=== PATIENT | male | born 1955 | race Caucasian/White ===

== ENCOUNTER 2021-06-16 07:29 | Day surgery (SDC) | payer MEDICARE, BC, SELFPAY ==
[2021-06-16] VITALS (7 sets, daily range): BP systolic 95–131; BP diastolic 63–81; PULSE 53–68; RESP 16; TEMP 36.4–36.6; O2SAT 96–98; BMI 21.8
[2021-06-16] MEDS: Lactated Ringers 1,000 ML 15 ML IV (07:55)
--- NOTE | 2021-06-16 08:45 | IMM_PTH ---
PATIENT: LASHAY WILLIAM LOC: EN U#:[id number] AGE/SX: 66/M ROOM: RE06/16/[address]: Dr. Anthony Villanueva MD : 1955 BED: DIS: 06/16/2021 SPEC #: [id number] RECD: 06/16/21 14:50 STATUS: PRESLEY REQ #: [id number] NATY: 06/16/21 08:[address]: Anthony Villanueva DEPT: IMMUNOHISTOCHEMISTRY RECD BY: Lilli Fontana ENTERED: 06/16/21 14:50 SP TYPE: IMMUNO OTHR DR: Dr. Zulma Dye MD Tissues: A - Stomach, NOS Procedures: H Pylori (initial) PHYSICIAN & INSTITUTION [address] [address] SPECIMEN INFORMATION: Tissue Source: A ? Antrum biopsy Clinical Info: Positive Cologuard test Specimen Number: [id number] CPT code: 18849 METHODOLOGY: Deparaffinized sections of prefer/formalin-fixed tissue or PAP/DQ stained slides are incubated with monoclonal/polyclonal antibodies/oligonucleotide probes. Localization is made via biotin free immunoperoxidase method. Appropriate controls are performed and reacted as expected. Results on target cell population are indicated in the following table: RESULTS: ANTIBODY / CLONE RESULT Block A H Pylori (polyclonal) negative These tests were developed and their performance characteristics determined by [facility]. They may not have been cleared or approved by the U.S. Food and Drug Administration. The FDA has determined that such clearance or approval is not necessary. INTERPRETATION: A. Antrum biopsy: Negative for Helicobacter pylori organisms. AM:huey 06/17/2021
--- NOTE | 2021-06-16 08:45 | EGD_PTH ---
PATIENT: LASHAY WILLIAM LOC: EN U#:[id number] AGE/SX: 66/M ROOM: RE06/16/[address]: Dr. Anthony Villanueva MD : 1955 BED: DIS: 06/16/2021 SPEC #: [id number] RECD: 06/16/21 11:33 STATUS: PRESLEY RERobbie #: [id number] NATY: 06/16/21 08:[address]: Anthony Villanueva DEPT: SURGICAL PATHOLOGY RECD BY: Naomi Yusuf ENTERED: 06/16/21 12:58 SP TYPE: EGD BIOPSY OT DR: Dr. Zulma Dye MD Tissues: A - Gastric mucous membrane B - Stomach, NOS C - Esophagus, NOS D - Ascending colon Procedures: Special Stain Group II Surgery Specimen Level IV Alcian Blue/PAS (control) HEADER OPERATION: Colonoscopy, EGD ([facility] [place] PRE-OP DIAGNOSIS: Positive Cologuard test TISSUE SUBMITTED: A ? Antrum biopsy for H. pylori and path, B ? EG junction biopsy, C ? Mid esophagus biopsy, D ? Proximal ascending colon ulceration biopsy MICROSCOPIC DIAGNOSIS A. Gastric antrum, biopsy: Chronic gastritis. See comment. B. Gastroesophageal junction, biopsy: Chronic inflammation. No evidence of goblet cell metaplasia. See comment. C. Mid esophagus, biopsy: No pathologic change. D. Proximal ascending colon ulceration, biopsy: Recent mucosal hemorrhage and mild glandular distortion. See comment. AM:huey 06/17/2021 COMMENT A. The results of immunohistochemistry for Helicobacter pylori will be reported separately ([id number]). B. Alcian blue/PAS stain with matched control supports the above diagnosis. D. Sections show mild glandular distortion, mild increase in inflammatory cells and lamina propria and recent mucosal hemorrhage. Cryptitis, crypt abscesses and fissuring ulcers are not identified. Clinical correlation is suggested. MICROSCOPIC DESCRIPTION Slides are reviewed. GROSS DESCRIPTION A - Received in fixative is one container labeled with the patient's name and designated antrum biopsy. The specimen consists of one irregular fragment of light sahu soft tissue that measures 0.5 x 0.5 x 0.1 cm. The specimen is totally submitted in one cassette. B - Received in fixative is one container labeled with the patient's name and designated GE junction. The specimen consists of multiple irregular fragments of light sahu soft tissue that in aggregate measure 1.5 x 0.5 x 0.1 cm. The specimen is totally submitted in one cassette. C - Received in fixative is one container labeled with the patient's name and designated mid esophagus biopsy. The specimen consists of one irregular fragment of light sahu soft tissue that measures 0.6 x 0.5 x <0.1 cm. The specimen is totally submitted in one cassette. D - Received in fixative is one container labeled with the patient's name and designated proximal ascending colon. The specimen consists of two irregular fragments of light sahu soft tissue that in aggregate measure 1 x 0.2 x 0.1 cm. The specimen is totally submitted in one cassette. / AM:huey 06/16/21 TC:3 CPT: 47806 x4, 73134
--- NOTE | 2021-06-16 08:45 | PCM.HP.BLA ---
History and Physical Date of Admission: 06/16/21 Intake Visit Reasons: positive cologaurd Chief Complaint: positive cologuard Wool Hanker Required: No Is patient in pain?: No Allergies amoxicillin Allergy (Mild, Verified 06/01/21 07:31) Rash Medications antiarthritic combination no.2 900 mg tablet mg PO 06/01/21 [History Confirmed 06/01/21] aspirin 81 mg tablet,delayed release 81 mg PO DAILY 06/01/21 [History Confirmed 06/01/21] atorvastatin 10 mg tablet tablet PO 06/01/21 [History Confirmed 06/01/21] cholecalciferol (vitamin D3) 25 mcg (1,000 unit) capsule 25 mcg PO DAILY 06/01/21 [History Confirmed 06/01/21] multivitamin 1 tab PO DAILY 06/01/21 [History Confirmed 06/01/21] niacin 500 mg tablet 500 mg PO BID 06/01/21 [History Confirmed 06/01/21] tamsulosin 0.4 mg capsule cap PO 06/01/21 [History Confirmed 06/01/21] PFSH Medical History BPH (benign prostatic hyperplasia) High cholesterol S/p nephrectomy Surgical History S/P hemorrhoidectomy Family History Father Hypertension Mother Cancer uterine cancer Social History Smoking Status: Never smoker alcohol intake: never HPI HPI HPI: LASHAY WILLIAM, is a 66 M who presents to the office today for surgical consultation regarding a positive Cologuard test. The patient is referred by Dr. Zulma Dye and a written copy of my surgical consult and recommendations will return to her. 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 He has had 2 previous hemorrhoidectomies both in 1959 and in 1972. His mother had uterine cancer but there is no documented family history of colon cancer. The patient has not been a tobacco user and years remains physically very active as of May 26, 2021 his hemoglobin was 13.7 and hematocrit 41.2 with a platelet count of 186,000. He had a Cologuard test and a means of screening for colon cancer and the result of this was positive. He has never had an upper endoscopy. He has never had a colonoscopy. He is a retired [employer]. He has not noticed any bright red blood per rectum or melena. No abdominal pain. No unexpected weight loss. As noted he remains physically very active. He plays pickle ball and rides bike. ROS General General: No weight change, appetite, fatigue, colon cancer, breast cancer or weakness HEENT HEENT: No difficulty swallowing, eye injury, eye surgery, swollen glands or hoarseness Endo Endocrine: No thyroid disease, diabetes mellitus, thyroid cancer, Hair loss, heat intolerance or cold intolerance Skin Skin: Yes changing moles; No rash Breast Breast: No left breast lump, right breast lump, nipple discharge, breast pain, abnormal mammogram, abnormal US or breast enlargement Musc Musculoskeletal: Yes back problems; No arthritis, rheumatoid arthritis, gout or joint pain Cardio Cardiovascular: No murmur, pacemaker, heart disease, atrial fibrillation, high blood pressure, heart attack, heart stent, palpitations, shortness of breat with exertion or chest pain Psych Psychiatric: No depression, anxiety or hearing voices Resp Respiratory: No shortness of breath, No sleep apnea, No cough, No COPD, No asthma, No emphysema and No wheezing Gastro Gastrointestinal: No abdominal pain, No nausea or vomiting, No diarrhea, No constipation, No blood in stool, No acid reflux, No hemorrhoids, No ulcers, No gallbladder problem and No black,tarry stools Christiano Hematologic: No blood thinners, No blood disorders, No bleeding, No anemia and No blood clots Neuro Neurologic: No system reviewed and no additional complaints, except as documented, No as per HPI, No abnormal gait, No abnormal hearing, No abnormal movements, No abnormal speech, No behavioral changes, No burning sensations, No confusion, No convulsions, No disequilibrium, No dizziness, No localized weakness, No frequent falls, No headache(s), No lack of coordination, No loss of vision, No memory loss, No numbness, No other visual disturbances, No radicular pain, No restless legs, No sensory deficit, No syncope, No tingling, No tremor(s), No weakness and No other Exam Const General: cooperative, healthy appearing, comfortable and no acute distress Nutritional Appearance: average body habitus Orientation: awake [facility] Head: normal to inspection Eyes General: appearance normal, both eyes and all related structures Chest Chest palpation & inspection: normal inspection of the chest Other: Right chest deformity secondary to remote right nephrectomy Resp Effort & Inspection: normal respiratory effort Auscultation: clear to auscultation bilaterally Cardio Rate: regular rate GI Palpation: soft and no hepatosplenomegaly Auscultation: normal bowel sounds Other: Nontender, normal bowel sounds Musc Cervical Spine: normal cervical lordosis Skin General: no rashes or lesions noted Neuro General: patient alert and patient awake Extrem General: no calf tenderness Psych Appearance: grossly normal Assessment and Plan Assessment and Plan (1) Positive colorectal cancer screening using Cologuard test: Status: Acute Plan - Dr. Anthony Villanueva MD: Patient with positive Cologuard. He has no upper or lower GI symptoms. He has never had an upper or lower scope. He is on aspirin therapy because of lower extremity superficial varicosities with previous history of superficial thrombophlebitis. He has never had deep venous thrombosis. I recommend to him a esophagogastroduodenoscopy with possible biopsy and colonoscopy with possible biopsy or polypectomy as indicated. He is aware of the technique, benefit, risk, alternatives. He has had an opportunity to ask and have questions answered. I anticipate performing this under monitored anesthesia care as noted the patient is retired [employer]. We will schedule procedure at his discretion. I very much appreciate the kind opportunity of assisting with the surgical care. He has not experience COVID-19. He has been fully vaccinated. Copy: Dr. Zulma Villanueva M.D., F.A.C.S. I have re-examined the patient. There are no clinical changes since date of exam.
--- NOTE | 2021-06-16 10:07 | OP.EGD_ITS ---
Patient Name: Siddharth Bennett Procedure Date: 06/16/2021 9:26 AM Date of : 1955 Age: 66 Procedure: Upper GI endoscopy Indications: Cologuard positive Providers: Anthony Villanueva MD Medicines: See the Anesthesia note for documentation of the administered medications Complications: No immediate complications. Procedure: Pre-Anesthesia Assessment: - Prior to the procedure, a History and Physical was performed, and patient medications and allergies were reviewed. The patient's tolerance of previous anesthesia was also reviewed. The risks and benefits of the procedure and the sedation options and risks were discussed with the patient. All questions were answered, and informed consent was obtained. Prior Anticoagulants: The patient has taken no previous anticoagulant or antiplatelet agents. ASA Grade Assessment: II - A patient with mild systemic disease. After reviewing the risks and benefits, the patient was deemed in satisfactory condition to undergo the procedure. After obtaining informed consent, the endoscope was passed under direct vision. Throughout the procedure, the patient's blood pressure, pulse, and oxygen saturations were monitored continuously. The gastroscope was introduced through the mouth, and advanced to the second part of duodenum. The upper GI endoscopy was accomplished without difficulty. The patient tolerated the procedure well. Scope In: 9:32:03 AM Scope Out: 9:38:14 AM Total Procedure Duration Time 0 hours 6 minutes 11 seconds Findings: LA Grade A (one or more mucosal breaks less than 5 mm, not extending between tops of 2 mucosal folds) esophagitis with no bleeding was found 44 cm from the incisors. Biopsies were taken with a cold forceps for histology. The middle third of the esophagus was normal. Biopsies were taken with a cold forceps for histology. A small hiatal hernia was present. Diffuse mildly erythematous mucosa without bleeding was found in the gastric antrum. Biopsies were taken with a cold forceps for histology. The examined duodenum was normal. Impression: - LA Grade A reflux esophagitis. Biopsied. - Normal middle third of esophagus. Biopsied. - Small hiatal hernia. - Erythematous mucosa in the antrum. Biopsied. - Normal examined duodenum. Recommendation: - Discharge patient to home. - Resume previous diet. - Continue present medications. - Use Prilosec (omeprazole) 40 mg PO daily. Esophagitis might have been enough to activate Cologuard Procedure Code(s): --- Professional --- 74298, Esophagogastroduodenoscopy, flexible, transoral; with biopsy, single or multiple Diagnosis Code(s): --- Professional --- K21.0, Gastro-esophageal reflux disease with esophagitis K44.9, Diaphragmatic hernia without obstruction or gangrene K31.89, Other diseases of stomach and duodenum CPT copyright 2017 [employer]. All rights reserved. The codes documented in this report are preliminary and upon sr. payroll processor review may be revised to meet current compliance requirements. Anthony Villanueva MD 06/16/2021 10:07:07 AM This report has been signed electronically. Number of Addenda: 0 Note Initiated On: 06/16/2021 9:26 AM
--- NOTE | 2021-06-16 10:08 | OP.CCLET_ITS ---
06/16/2021 Zulma Dye [place] [id number] [address] Re : Upper GI endoscopy procedure for Siddharth Bennett Dear Dr. Dye This procedure was performed on Wednesday, June 16, 2021. My impressions and recommendations are as follows: Impressions : - LA Grade A reflux esophagitis. Biopsied. - Normal middle third of esophagus. Biopsied. - Small hiatal hernia. - Erythematous mucosa in the antrum. Biopsied. - Normal examined duodenum. Recommendations : - Discharge patient to home. - Resume previous diet. - Continue present medications. - Use Prilosec (omeprazole) 40 mg PO daily. Esophagitis might have been enough to activate Cologuard My findings are described in the full procedure note, which is enclosed. If I can be of further assistance, please feel free to contact me at Doctor phone number(s): Work: . Sincerely, Anthony Villanueva MD 06/16/2021 10:07:07 AM This report has been signed electronically.
--- NOTE | 2021-06-16 10:16 | OP.COLON_ITS ---
Patient Name: Siddharth Bennett Procedure Date: 06/16/2021 9:38 AM Date of : 1955 Age: 66 Procedure: Colonoscopy Indications: Cologuard positive Providers: Anthony Villanueva MD Medicines: See the Anesthesia note for documentation of the administered medications Patient Profile: Last Colonoscopy: none. The patient's first colonoscopy is today. Complications: No immediate complications. Procedure: Pre-Anesthesia Assessment: - Prior to the procedure, a History and Physical was performed, and patient medications and allergies were reviewed. The patient's tolerance of previous anesthesia was also reviewed. The risks and benefits of the procedure and the sedation options and risks were discussed with the patient. All questions were answered, and informed consent was obtained. Prior Anticoagulants: The patient has taken no previous anticoagulant or antiplatelet agents. ASA Grade Assessment: II - A patient with mild systemic disease. After reviewing the risks and benefits, the patient was deemed in satisfactory condition to undergo the procedure. After I obtained informed consent, the scope was passed under direct vision. Throughout the procedure, the patient's blood pressure, pulse, and oxygen saturations were monitored continuously. The colonoscope was introduced through the anus and advanced to the cecum, identified by appendiceal orifice and ileocecal valve. The colonoscopy was performed without difficulty. The patient tolerated the procedure well. The quality of the bowel preparation was adequate to identify polyps. The ileocecal valve and the appendiceal orifice were photographed. Scope In: 9:41:58 AM Scope Withdrawal Time 0 hours 10 minutes 50 seconds Scope Out: 10:00:47 AM Total Procedure Duration Time 0 hours 18 minutes 49 seconds Findings: The digital rectal exam findings include non-thrombosed internal hemorrhoids and internal hemorrhoids that prolapse with straining, but require manual replacement into the anal canal (Grade III). Pertinent negatives include normal prostate (size, shape, and consistency). Focal area of nonbleeding ulcerated mucosa was present in the proximal ascending colon. Biopsies were taken with a cold forceps of this area. Multiple diverticula were found in the sigmoid colon and descending colon. The colon (entire examined portion) was moderately tortuous. There was a small lipoma, in the mid transverse colon. Impression: - Non-thrombosed internal hemorrhoids and internal hemorrhoids that prolapse with straining, but require manual replacement into the anal canal (Grade III) found on digital rectal exam. - Mucosal ulceration. - Diverticulosis in the sigmoid colon and in the descending colon. - Tortuous colon. - Small lipoma in the mid transverse colon. - Biopsies were taken with a cold forceps for histology [Site]. Recommendation: - Discharge patient to home. - Resume previous diet. - Continue present medications. - Telephone my office for pathology results in 1 week. - Repeat colonoscopy is recommended for surveillance. The colonoscopy date will be determined after pathology results from today's exam become available for review. Procedure Code(s): --- Professional --- 16858, Colonoscopy, flexible; with biopsy, single or multiple Diagnosis Code(s): --- Professional --- K64.2, Third degree hemorrhoids K63.3, Ulcer of intestine D17.5, Benign lipomatous neoplasm of intra-abdominal organs K57.30, Diverticulosis of large intestine without perforation or abscess without bleeding Q43.8, Other specified congenital malformations of intestine CPT copyright 2017 [employer]. All rights reserved. The codes documented in this report are preliminary and upon clay stain mixer review may be revised to meet current compliance requirements. Anthony Villanueva MD 06/16/2021 10:15:42 AM This report has been signed electronically. Number of Addenda: 0 Note Initiated On: 06/16/2021 9:38 AM
--- NOTE | 2021-06-16 10:17 | OP.CCLET_ITS ---
06/16/2021 Zulma Dye [place] [id number] [address] Re : Colonoscopy procedure for Siddharth Bennett Dear Dr. Dye This procedure was performed on Wednesday, June 16, 2021. My impressions and recommendations are as follows: Impressions : - Non-thrombosed internal hemorrhoids and internal hemorrhoids that prolapse with straining, but require manual replacement into the anal canal (Grade III) found on digital rectal exam. - Mucosal ulceration. - Diverticulosis in the sigmoid colon and in the descending colon. - Tortuous colon. - Small lipoma in the mid transverse colon. - Biopsies were taken with a cold forceps for histology [Site]. Recommendations : - Discharge patient to home. - Resume previous diet. - Continue present medications. - Telephone my office for pathology results in 1 week. - Repeat colonoscopy is recommended for surveillance. The colonoscopy date will be determined after pathology results from today's exam become available for review. My findings are described in the full procedure note, which is enclosed. If I can be of further assistance, please feel free to contact me at Doctor phone number(s): Work: . Sincerely, Anthony Villanueva MD 06/16/2021 10:15:42 AM This report has been signed electronically.
== END 2021-06-16 11:28 | disposition home or self-care (01) ==
LOC: EN 07:34 → AC 07:35
PROVIDERS: PCP Family Medicine; Referring Provider Family Medicine; Visit Provider Surgery
PROC: 0DJD8ZZ Inspection of Lower Intestinal Tract, Via Natural or Artificial Opening Endoscopic (ICD-10-PCS; CPT 45378; principal; 2021-06-16 08:40)
DX: K29.50 Unspecified chronic gastritis without bleeding (principal); K64.2 Third degree hemorrhoids; K63.3 Ulcer of intestine; K57.30 Diverticulosis of large intestine without perforation or abscess without bleeding; K21.00 Gastro-esophageal reflux disease with esophagitis, without bleeding; K31.89 Other diseases of stomach and duodenum; K44.9 Diaphragmatic hernia without obstruction or gangrene; N40.0 Benign prostatic hyperplasia without lower urinary tract symptoms; E78.00 Pure hypercholesterolemia, unspecified; Z79.82 Long term (current) use of aspirin; Z90.5 Acquired absence of kidney; Z85.528 Personal history of other malignant neoplasm of kidney
CPT/HCPCS: 43239; 45380; 88305; 88313; 88342; J7120; J2405

== ENCOUNTER → 2021-11-03 | Outpatient (CLI) | payer MEDICARE, BC, SELFPAY ==
--- NOTE | 2021-11-03 08:57 | US_ITS ---
STUDY: ULTRASOUND BREAST - LEFT REASON FOR EXAM: Male, 66 years old. Bilateral retroareolar tenderness. TECHNIQUE: Axial and longitudinal images of the LEFT breast were performed with a high resolution ultrasound transducer. # OF IMAGES: 50 COMPARISON: Comparison is made with prior mammogram done earlier in the day. FINDINGS: LEFT Breast: Retroareolar glandular tissue is seen. No mass lesions present. IMPRESSION: No soft tissue mass is seen. ASSESSMENT CATEGORY: No soft tissue masses seen Electronically Signed: Richard Archuleta MD at 11:04 EDT , STUDY: ULTRASOUND BREAST - RIGHT REASON FOR EXAM: Male, 66 years old. Palpable lump in the right breast. TECHNIQUE: Axial and longitudinal images of the RIGHT breast were performed with a high resolution ultrasound transducer. # OF IMAGES: 50 COMPARISON: Comparison is made with prior mammogram done earlier today. FINDINGS: RIGHT Breast: The retroareolar region of the breast was examined with ultrasound. No sonographic abnormality is seen. US/Breast Limited Unilateral IMPRESSION: No sonographic abnormality is seen. ASSESSMENT CATEGORY: BIRADS Category 1: Negative. A letter regarding these results will be sent to the patient by the facility within 30 days. Electronically Signed: Richard Archuleta MD at 11:05 EDT ,
--- NOTE | 2021-11-03 08:57 | BI_ITS ---
MAMMOGRAPHY - BILATERAL DIAGNOSTIC REASON FOR EXAM: Male, 66 years old. Bilateral breast tenderness worse on the left side. PERTINENT HISTORY: Non-contributory. TECHNIQUE: Digital bilateral breast dodie (3D mammographic acquisition) in the CC and MLO projections. 2-D mediolateral oblique (MLO) and craniocaudad (CC) views of both breasts were obtained. CAD: Full Field Digital Mammography with Computer Added Detection was performed. COMPARISON: None. Baseline examination. FINDINGS: Breast Composition: The breasts are almost entirely fatty. There are no dominant masses or suspicious calcifications. Bilateral axillary lymph nodes. No other significant abnormalities are identified. BI/DIAG MAMM W/CAD, BILAT IMPRESSION: Negative diagnostic mammogram. With the patient''s history of bilateral wrist tenderness, targeted ultrasound is recommended. ASSESSMENT CATEGORY: BIRADS Category 0: Incomplete. Need additional imaging evaluation. A letter regarding these results will be sent to the patient by the facility within 30 days. Approximately 10% of breast cancers are not detected by mammography. A normal mammogram should not delay biopsy of a clinically suspicious abnormality. Electronically Signed: Richard Archuleta MD at 10:02 EDT ,
== END | disposition home or self-care (01) ==
LOC: OPBI 08:54
PROVIDERS: PCP Family Medicine; Visit Provider Family Medicine
DX: N64.4 Mastodynia (principal)
CPT/HCPCS: 76642; 77062; 77066; G0279

== ENCOUNTER → 2022-05-04 | Outpatient (CLI) | payer MEDICARE, BC, SELFPAY ==
[2022-05-04 08:59] LABS: Absolute Lymphocyte Count 1.19 X10^3/uL (0.83-4.51); Absolute Neutrophil Count 2.8 X10^3/uL (2.0-7.7); Basophil# 0.03 X10^3/uL; Basophil% 0.7 % (0-1); Eosinophil# 0.09 X10^3/uL; Hematocrit 41.8 % (40-54); Hemoglobin 13.6 g/dL (13.0-16.5); Lymphocyte # 1.19 X10^3/ul (0.83-4.51); Lymphocyte % 26.6 % (19-41); Mean Corp Hgb Conc 32.5 g/dL (32-36); Mean Corpuscular Hgb 30.8 pg (27.0-32.0); Mean Corpuscular Volume 94.6 fL (80-94); Monocyte# 0.39 X10^3/uL; Monocyte% 8.7 % (0-10); NRBC Flagged by Analyzer 0 % (0-5); Neutrophil # 2.77 X10^3/uL (2.7-7.7); Neutrophil % 61.8 % (47-70); Platelet Count 182 K/mm3 (150-450); RBC Distribution Width CV 13.1 % (11.6-14.6); RBC Distribution Width SD 45.2 fl (35.1-43.9); Red Blood Count 4.42 M/mm3 (4.6-6.2); White Blood Count 4.5 K/mm3 (4.4-11.0)
[2022-05-04 09:39] LABS: ALB/GLOB Ratio 1.1 RATIO (0.9-2.4); AST(SGOT) 17 U/L (15-37); Alanine Aminotransfer ALT/SGPT 19 U/L (16-61); Albumin, Serum 3.6 g/dL (3.2-5.0); Alkaline Phosphatase 64 U/L (45-117); Anion Gap 4 (5-15); BUN 22 mg/dL (7-18); BUN/Creat Ratio 23.9 RATIO (10-20); Calcium,Total 8.9 mg/dL (8.5-10.1); Chloride 106 mmol/L (98-107); Cholesterol 217 mg/dL (200); Creatinine, Serum 0.92 mg/dL (0.70-1.30); EST Glomerular Filtration Rate 87 mL/min (>60); Est Glom Filt Rate - Afr Amer 105 mL/min (>60); Globulin 3.3 g/dL (2.2-4.2); Glucose 86 mg/dL (74-106); High Density Lipoprotein 56 mg/dL; Potassium 4.2 mmol/L (3.5-5.1); Protein, Total 6.9 g/dL (6.4-8.2); Sodium Level 139 mmol/L (136-145); Triglycerides 110 mg/dL; Very Low Density Lipoprotein 22 mg/dL (5-40)
== END | disposition home or self-care (01) ==
LOC: LAB 08:22
PROVIDERS: PCP Family Medicine; Referring Provider Family Medicine; Visit Provider Family Medicine
DX: E78.5 Hyperlipidemia, unspecified (principal); K21.00 Gastro-esophageal reflux disease with esophagitis, without bleeding; Z90.5 Acquired absence of kidney
CPT/HCPCS: 36415; 80053; 80061; 85025

== ENCOUNTER → 2022-07-09 | Outpatient (CLI) | payer MEDICARE, BC, SELFPAY | END | disposition home or self-care (01) | LOC: LABSPEC 08:20 | PROVIDERS: PCP Family Medicine; Visit Provider Family Medicine | DX: R30.0 Dysuria (principal) | CPT/HCPCS: 87077; 87086; 87088; 87186 ==

== ENCOUNTER → 2022-07-22 | Outpatient (CLI) | payer MEDICARE, BC, SELFPAY ==
[2022-07-22 12:39] LABS: Color, Urine Yellow (Yellow); Urine Clarity Clear (Clear)
[2022-07-22 12:40] LABS: Glucose, Dipstick Normal (Normal); Ketone-Dipstick Negative (Negative); Leukocyte Esterase-Dipstick Negative /ul (Negative); Nitrite-Dipstick Negative (Negative); Occult Blood-Urine 50 /ul (Negative); Protein-Dipstick Negative (Negative); Urine Bilirubin Dipstick Negative (Negative); Urine Urobilinogen Normal (Normal)
== END | disposition home or self-care (01) ==
LOC: LABSPEC 09:32
PROVIDERS: PCP Family Medicine; Visit Provider Family Medicine
DX: N39.0 Urinary tract infection, site not specified (principal)
CPT/HCPCS: 81002; 87086

== ENCOUNTER → 2022-11-26 | Outpatient (CLI) | payer MEDICARE, BC, SELFPAY | END | disposition home or self-care (01) | LOC: BFHLAB 11:29 | PROVIDERS: PCP Family Medicine; Referring Provider Family Medicine; Visit Provider Family Medicine | DX: R30.0 Dysuria (principal) | CPT/HCPCS: 87086 ==

== ENCOUNTER → 2023-06-01 | Outpatient (CLI) | payer MEDICARE, BC, SELFPAY ==
[2023-06-01 09:47] LABS: Absolute Lymphocyte Count 1.14 X10^3/uL (0.83-4.51); Absolute Neutrophil Count 2.3 X10^3/uL (2.0-7.7); Basophil# 0.03 X10^3/uL; Basophil% 0.8 % (0-1); Eosinophil# 0.17 X10^3/uL; Eosinophils% 4.3 % (0-5); Hematocrit 41.7 % (40-54); Lymphocyte # 1.14 X10^3/ul (0.83-4.51); Lymphocyte % 28.5 % (19-41); Mean Corp Hgb Conc 31.2 g/dL (32-36); Mean Corpuscular Hgb 30.2 pg (27.0-32.0); Mean Platelet Vol. 9.1 fl (6.2-12.0); Monocyte# 0.39 X10^3/uL; Monocyte% 9.8 % (0-10); NRBC Flagged by Analyzer 0 % (0-5); Neutrophil # 2.26 X10^3/uL (2.7-7.7); Neutrophil % 56.3 % (47-70); Platelet Count 188 K/mm3 (150-450); RBC Distribution Width CV 13.4 % (11.6-14.6); RBC Distribution Width SD 47.9 fl (35.1-43.9)
[2023-06-01 10:14] LABS: ALB/GLOB Ratio 1.1 RATIO (0.9-2.4); AST(SGOT) 22 U/L (15-37); Alanine Aminotransfer ALT/SGPT 18 U/L (16-61); Albumin, Serum 3.6 g/dL (3.2-5.0); Alkaline Phosphatase 58 U/L (45-117); Anion Gap 6 (5-15); BUN 20 mg/dL (7-18); BUN/Creat Ratio 22.7 RATIO (10-20); Calcium,Total 8.7 mg/dL (8.5-10.1); Chloride 107 mmol/L (98-107); Cholesterol 193 mg/dL (200); Creatinine, Serum 0.88 mg/dL (0.70-1.30); EST Glomerular Filtration Rate 91 mL/min (>60); Est Glom Filt Rate - Afr Amer 110 mL/min (>60); Globulin 3.3 g/dL (2.2-4.2); Glucose 88 mg/dL (74-106); High Density Lipoprotein 62 mg/dL; PSA,Total - Annual Screen 1.46 ng/mL (0.00-4.00); Potassium 3.9 mmol/L (3.5-5.1); Protein, Total 6.9 g/dL (6.4-8.2); Sodium Level 143 mmol/L (136-145); Triglycerides 85 mg/dL; Very Low Density Lipoprotein 17 mg/dL (5-40)
== END | disposition home or self-care (01) ==
LOC: LAB 08:23
PROVIDERS: PCP Family Medicine; Referring Provider Family Medicine; Visit Provider Family Medicine
DX: Z00.00 Encounter for general adult medical examination without abnormal findings (principal); N40.0 Benign prostatic hyperplasia without lower urinary tract symptoms; E78.5 Hyperlipidemia, unspecified; Z12.5 Encounter for screening for malignant neoplasm of prostate
CPT/HCPCS: 36415; 80053; 80061; 84153; 85025; G0103

== ENCOUNTER → 2024-06-12 | Outpatient (CLI) | payer MEDICARE, BC, SELFPAY ==
[2024-06-12 10:30] LABS: Absolute Lymphocyte Count 1.08 X10^3/uL (0.83-4.51); Absolute Neutrophil Count 2.8 X10^3/uL (2.0-7.7); Basophil# 0.04 X10^3/uL; Basophil% 0.9 % (0-1); Eosinophil# 0.13 X10^3/uL; Eosinophils% 2.9 % (0-5); Hematocrit 41.9 % (40-54); Hemoglobin 13.3 g/dL (13.0-16.5); Lymphocyte # 1.08 X10^3/ul (0.83-4.51); Lymphocyte % 24.4 % (19-41); Mean Corp Hgb Conc 31.7 g/dL (32-36); Mean Corpuscular Hgb 30.4 pg (27.0-32.0); Mean Corpuscular Volume 95.9 fL (80-94); Mean Platelet Vol. 8.5 fl (6.2-12.0); Monocyte# 0.37 X10^3/uL; Monocyte% 8.4 % (0-10); NRBC Flagged by Analyzer 0 % (0-5); Neutrophil % 63.2 % (47-70); Platelet Count 197 K/mm3 (150-450); RBC Distribution Width CV 13.1 % (11.6-14.6); RBC Distribution Width SD 46.6 fl (35.1-43.9); Red Blood Count 4.37 M/mm3 (4.6-6.2); White Blood Count 4.4 K/mm3 (4.4-11.0)
[2024-06-12 10:59] LABS: AST(SGOT) 19 U/L (15-37); Alanine Aminotransfer ALT/SGPT 18 U/L (16-61); Albumin, Serum 3.4 g/dL (3.2-5.0); Alkaline Phosphatase 66 U/L (45-117); Anion Gap 3 (5-15); BUN 18 mg/dL (7-18); BUN/Creat Ratio 19.3 RATIO (10-20); Calcium,Total 8.9 mg/dL (8.5-10.1); Chloride 107 mmol/L (98-107); Cholesterol 208 mg/dL (200); Creatinine, Serum 0.94 mg/dL (0.70-1.30); EST Glomerular Filtration Rate 85 mL/min (>60); Est Glom Filt Rate - Afr Amer 103 mL/min (>60); Globulin 3.5 g/dL (2.2-4.2); Glucose 95 mg/dL (74-106); High Density Lipoprotein 56 mg/dL; Potassium 3.9 mmol/L (3.5-5.1); Protein, Total 6.9 g/dL (6.4-8.2); Sodium Level 140 mmol/L (136-145); Triglycerides 116 mg/dL; Very Low Density Lipoprotein 23 mg/dL (5-40)
== END | disposition home or self-care (01) ==
PROVIDERS: PCP Family Medicine; Referring Provider Family Medicine; Visit Provider Family Medicine
DX: Z00.00 Encounter for general adult medical examination without abnormal findings (principal); N40.0 Benign prostatic hyperplasia without lower urinary tract symptoms; E78.5 Hyperlipidemia, unspecified
CPT/HCPCS: 36415; 80053; 80061; 85025

== ENCOUNTER → 2024-08-17 | Outpatient (CLI) | payer MEDICARE, BC, SELFPAY ==
[2024-08-17 17:42] LABS: Absolute Lymphocyte Count 0.77 X10^3/uL (0.83-4.51); Absolute Neutrophil Count 4.2 X10^3/uL (2.0-7.7); Basophil# 0.03 X10^3/uL; Basophil% 0.5 % (0-1); Eosinophil# 0.07 X10^3/uL; Eosinophils% 1.3 % (0-5); Hematocrit 41.1 % (40-54); Hemoglobin 13.1 g/dL (13.0-16.5); Lymphocyte # 0.77 X10^3/ul (0.83-4.51); Lymphocyte % 13.9 % (19-41); Mean Corp Hgb Conc 31.9 g/dL (32-36); Mean Corpuscular Hgb 30.7 pg (27.0-32.0); Mean Corpuscular Volume 96.3 fL (80-94); Mean Platelet Vol. 9.1 fl (6.2-12.0); Monocyte# 0.49 X10^3/uL; Monocyte% 8.8 % (0-10); NRBC Flagged by Analyzer 0 % (0-5); Neutrophil # 4.17 X10^3/uL (2.7-7.7); Neutrophil % 75.3 % (47-70); Platelet Count 194 K/mm3 (150-450); RBC Distribution Width CV 13.3 % (11.6-14.6); RBC Distribution Width SD 47.8 fl (35.1-43.9); Red Blood Count 4.27 M/mm3 (4.6-6.2); White Blood Count 5.5 K/mm3 (4.4-11.0)
[2024-08-17 18:03] LABS: ALB/GLOB Ratio 1.1 RATIO (0.9-2.4); AST(SGOT) 18 U/L (15-37); Alanine Aminotransfer ALT/SGPT 19 U/L (16-61); Albumin, Serum 3.7 g/dL (3.2-5.0); Alkaline Phosphatase 65 U/L (45-117); Anion Gap 3 (5-15); BUN 17 mg/dL (7-18); BUN/Creat Ratio 19.5 RATIO (10-20); Calcium,Total 9.6 mg/dL (8.5-10.1); Chloride 108 mmol/L (98-107); Creatinine, Serum 0.87 mg/dL (0.70-1.30); EST Glomerular Filtration Rate 92 mL/min (>60); Est Glom Filt Rate - Afr Amer 111 mL/min (>60); Globulin 3.4 g/dL (2.2-4.2); Glucose 103 mg/dL (74-106); Potassium 4.6 mmol/L (3.5-5.1); Protein, Total 7.1 g/dL (6.4-8.2); Sodium Level 141 mmol/L (136-145)
== END | disposition home or self-care (01) ==
LOC: BFHLAB 15:11
PROVIDERS: PCP Family Medicine; Visit Provider Family Medicine
DX: I49.3 Ventricular premature depolarization (principal); Z13.5 Encounter for screening for eye and ear disorders; R94.6 Abnormal results of thyroid function studies
CPT/HCPCS: 36415; 80053; 84443; 85025

== ENCOUNTER → 2024-12-21 | Outpatient (CLI) | payer MEDICARE, BC, SELFPAY ==
--- NOTE | 2024-12-21 08:48 | ECHOD_ITS ---
Reason For Study Reason For Study: ARRYTHMIA Procedure This was a 2D Doppler, Color Flow transthoracic echocardiogram. Exam performed in department. Left Ventricle Normal LV size. The left ventricular ejection fraction is 55 %. Stage 1 diastolic dysfunction. No regional wall motion abnormalities noted. Right Ventricle Normal RV size. Normal systolic function. Atria Normal left atrium. Normal right atrium. Mitral Valve Normal mitral valve. Tricuspid Valve Normal tricuspid valve. Mild (1+) tricuspid valve insufficiency. Pulmonary artery systolic pressure is 30 mmHg. Aortic Valve Trisinus/trileaflet aortic valve. Pulmonic Valve Normal pulmonic valve. Great Vessels Normal aortic root. The pulmonary artery is normal size. Inferior vena cava collapse with sniff. Pericardium/Pleural No pericardial effusion. MMode/2D Measurements & Calculations LVIDd: 5.2 cm IVSd: 1.0 cm Ao root diam: 3.5 cm LVIDs: 3.8 cm LVPWd: 0.99 cm RVDd: 4.1 cm FS: 26.8 % LAV(MOD-bp): 34.0 ml LVAd ap4: 30.9 cm2 SV(MOD-sp4): 50.3 ml LAV(MOD-bp) Indexed: 17.7 ml/m2 LVLd ap4: 8.6 cm SI(MOD-sp4): 26.2 ml/m2 LAV(MOD-sp2): 31.9 ml EDV(MOD-sp4): 94.2 ml LAV(MOD-sp4): 35.9 ml EDV(sp4-el): 94.0 ml LVAs ap4: 19.3 cm2 LVLs ap4: 7.3 cm ESV(MOD-sp4): 43.9 ml ESV(sp4-el): 43.7 ml EF(MOD-sp4): 53.4 % EF(sp4-el): 53.6 % SV(sp4-el): 50.3 ml LA A4 area: 15.1 cm2 LA dimension(2D): 3.8 cm RA A4 area: 14.9 cm2 TAPSE: 2.5 cm Time Measurements MV dec time: 0.16 sec Doppler Measurements & Calculations MV E max brown: 46.8 cm/sec Lat Peak E' Brown: 6.1 cm/sec Med Peak E' Brown: 7.6 cm/sec MV A max brown: 58.4 cm/sec E/E' lat: 7.7 E/E' med: 6.2 MV E/A: 0.80 Ao V2 max: 91.6 cm/sec LV V1 max: 69.5 cm/sec PA V2 max: 83.7 cm/sec Ao max P.4 mmHg LV V1 max P.9 mmHg TR max brown: 251.8 cm/sec TR max P.4 mmHg ECHO/Echo Complete Interpretation Summary Normal LV size. The left ventricular ejection fraction is 55 %. No regional wall motion abnormalities noted. Stage 1 diastolic dysfunction. Pulmonary artery systolic pressure is 30 mmHg. Structurally normal valves. Ordering Physician: Joe Avila Referring Physician: STAR LI Performed By: Sejal Simpson RDCS
--- OUTSIDE RECORDS SUMMARY | 2024-12-21 12:39 | XMS RPT_ITS | CCD ---
Author Organization [facility] CliniSyms Care Team Providers Care Drum Handler Name Role Phone MAIRA NESLON Unavailable Unavailable FLORIDALMA INFANTE Unavailable Unavailable FLORIDALMA INFANTE Unavailable Unavailable MAIRA NELSON Unavailable Unavailable FLORIDALMA INFANTE Unavailable Unavailable MAIRA NELSON Unavailable Unavailable FLORIDALMA INFANTE Unavailable Unavailable ARELIS, MD FLORIDALMA ALANIS Attending Unavailab pa INFANTE, MD FLORIDALMA ALANIS Primary Care Unavailab MD FLORIDALMA Guerra Primary Care Unavailab MD NEISHA Merida Attending Unavailable ARELIS, MD FLORIDALMA ALANIS Consulting Unavailab Dr. Zulma Holder MD Primary Care Provider [phone] Dr. Zulma Dye MD Attending Provider Dr. Zulma Dye MD Referring Provider Dr. Zulma Dye MD Primary Care Provider Dr. Zulma Dye MD Attending Provider Dr. Zulma Dye MD Referring Provider Dr. Joe Avila MD Attending Provider [phone] Zulma Dye Referring Unavailable Zulma Dye Attending Unavailable Zulma Dye Primary Care Unavailable Zulma Dye Primary Care Unavailable [place], [place] Referring Unavailable [place], [place] Attending Unavailable Zulma Dye Primary Care Unavailable [place], [place] Referring Unavailable [place], Joe Attending Unavailable Zulma Dye Referring Unavailable Zulma Dye Primary Care Unavailable [place], Joe Attending Unavailable Zulma Dye Attending Unavailable Zulma Dye Primary Care Unavailable Allergies Allergy Classification Reported Allergen(s) Allergy Type Date of Onset Reaction(s) Facility Penicillins (antibiotic) (1 source) Amoxicillin; Translations: [amoxicillin] Drug Allergy [facility] Repository (7 sources) Amoxicillin Drug Allergy 06-16-2021 Rash [facility] (1 source) Amoxicillin Drug Allergy 11-09-2024 [facility] Repository Medications Current Medications Medication Drug Class(es) Dates Sig (Normalized) Sig (Original) Antiarthritic Combination No.2 (Glucosamine-Chondro itin) 900 mg tablet (7 sources) Start: 06-01-2021 take 1 tablet by mouth once daily Antiarthritic Combination No.2 (Glucosamine-Chondr oitin) 900 mg tablet Active 900 MG PO DAILY June 01, 2021 8:31am Start: 06-01-2021 End: 11-09-2024 take 1 tablet by mouth once daily Antiarthritic Combination No.2 (Glucosamine-Chondroitin) 900 mg tablet Discontinued 900 mg PO DAILY June 01, 2021 1:00am November 09, 2024 8:57am Start: 06-01-2021 take 1 tablet by anastasiya th once daily Antiarthritic Combination No.2 (Glucosamine-Chondroitin) 900 mg tablet Active 900 mg PO DAILY June 01, 2021 12:00am Start: 06-01-2021 take 1 tablet by anastasiya th once daily Antiarthritic Combination No.2 (Glucosamine-Chondroitin) 900 mg tablet Active 900 MG PO DAILY June 01, 2021 1:00am Start: 06-01-2021 take 1 tablet by anastasiya th once daily Antiarthritic Combination No.2 (Glucosamine-Chondroitin) 900 mg tablet Active 900 MG PO DAILY June 01, 2021 12:00am aspirin 81 mg delayed release oral tablet (7 sources) Platelet Aggregation Inhibitor, Nonsteroidal Anti-inflammatory Drug Start: 06-01-2021 take 1 tablet by mouth once daily Aspirin 81 mg tablet,delayed release (DR/EC) Active 81 mg PO DAILY June 01, 2021 1:00am atenolol 25 mg oral tablet (1 source) beta-Adrenergic Marine Start: 10-15-2024 take 1 tablet by mouth once daily Atenolol 25 mg tablet Active 25 mg PO daily October 15, 2024 12:00am atorvastatin 10 mg oral tablet (7 sources) HMG-CoA Reductase Inhibitor Start: 06-01-2021 take 1 tablet by mouth every other day Atorvastatin 10 mg tablet Active 10 mg PO EVERY OTHER DAY June 01, 2021 1:00am cholecalciferol 0.025 mg oral capsule (7 sources) Vitamin D Start: 06-01-2021 take 1 capsule by mouth once daily Cholecalciferol (Vitamin D3) 25 mcg (1,000 unit) capsule Active 25 ug PO DAILY June 01, 2021 1:00am Multivitamin preparation (5 sources) Start: 06-01-2021 take 1 tablet by mouth once daily Multivitamin Active 1 TABLET PO DAILY June 01, 2021 8:32am Start: 06-01-2021 take 1 tablet by anastasiya th once daily Multivitamin Active 1 TABLET PO DAILY June 01, 2021 1:00am Start: 06-01-2021 take 1 tablet by anastasiya th once daily Multivitamin Active 1 TABLET PO DAILY June 01, 2021 12:00am niacin 500 mg oral tablet (8 sources) Nicotinic Acid Start: 10-15-2024 take 1 tablet by mouth once daily Niacin 500 mg tablet Active 500 mg PO daily October 15, 2024 3:48pm Start: 06-01-2021 End: 10-15-2024 take 1 tablet by mouth twice daily Niacin 500 mg tablet Discontinued 500 mg PO TWICE A DAY June 01, 2021 1:00am October 15, 2024 3:49pm tamsulosin hydrochloride 0.4 mg oral capsule (7 sources) alpha-Adrenergic Marine Start: 06-01-2021 Tamsu losin 0.4 mg capsule Active 0.4 NMA PO AT BEDTIME June 01, 2021 1:00am Start: 06-01-2021 take 0.4 capsule by mouth at bedtime Tamsulosin Active 0.4 CAP PO AT BEDTIME June 01, 2021 12:00am Completed/Discontinued Medications Medication Drug Class(es) Dates Sig (Normalized) Sig (Original) Multivitamin tablet (2 sources) Start: 06-01-2021 End: 11-09-2024 Multivitamin tablet Discontinued 1 {tbl} PO DAILY June 01, 2021 1:00am November 09, 2024 8:57am Start: 06-01-2021 Multivitamin t ablet Active 1 {tbl} PO DAILY June 01, 2021 12:00am omeprazole 40 mg delayed release oral capsule (7 sources) Proton Pump Inhibitor Start: 06-16-2021 End: 11-09-2024 take 1 capsule by mouth once daily Omeprazole 40 mg capsule,delayed release(DR/EC) Discontinued 40 mg PO DAILY 90 June 16, 2021 1:00am November 09, 2024 8:58am Problems Problem Classification Problem Date Documented Da te Episodic/Chronic Cardiac dysrhythmias (2 sources) Ventricular premature depolarization; Translations: [Ventricular premature depolarization] Onset: 08-30-2024 Chronic Disorders of lipid metabolism (8 sources) Hypercholesterolem ia; Translations: [Pure hypercholesterolem ia, unspecified] Onset: 11-09-2024 06-01-2021 Chronic Hyperplasia of prostate (7 sources) Benign prostatic hyperplasia; Translations: [Benign prostatic hyperplasia without lower urinary tract symptoms] 06-01-2021 Chronic Malignant neoplasm without specification of site (1 source) Malignant neoplastic disease; Translations: [Malignant (primary) neoplasm, unspecified] 10-15-2024 Chronic Comment on above: SKIN AND KIDNEY Other circulatory disease (1 source) History of cardiac arrhythmia; Translations: [Personal history of other diseases of the circulatory system] 10-15-2024 Episodic Comment on above: PVC'S SINCE AGE 39 Other circulatory disease (1 source) Personal history of other diseases of the circulatory system; Translations: [Personal history of other diseases of the circulatory system] Onset: 11-09-2024 Episodic Other gastrointestinal disorders (7 sources) Stool DNA-based colorectal cancer screening positive; Translations: [Other fecal abnormalities] 06-01-2021 Episodic Other male genital disorders (1 source) Disorder of prostate; Translations: [Disorder of prostate, unspecified] 10-15-2024 Episodic Comment on above: MILD ENLARGED PROSTA TE/ON FLOMAX Residual codes; unclassified (1 source) History of nephrectomy; Translations: [Acquired absence of kidney] 10-15-2024 Episodic Comment on above: right/DUE TO WILL TU MOR CHILD /HAD RADIATION Residual codes; unclassified (1 source) History of clinical finding in subject; Translations: [Personal history of other specified conditions] 10-15-2024 Episodic Comment on above: OCC LOWER LEGS/COMPR ESSION SOCKS Unclassified (1 source) Frequency of micturition / R35.0(ICD-10) Onset: 09-05-2017 Unclassified (1 source) Urgency of urination / R39.15(ICD-10) Onset: 09-05-2017 Unclassified (1 source) Hematuria, unspecified / R31.9(ICD-10) Onset: 08-26-2017 Unclassified (1 source) Renal agenesis, unilateral / Q60.0(ICD-10) Onset: 08-26-2017 Urinary tract infections (1 source) Urinary tract infections Onset: 08-26-2017 Results Test Name Value Interpretation Reference Range Facility 12 Lead EKG performed by [facility] 11-09-2024 12 Lead EKG performed by [facility] [address] [place] [address] 12 Lead EKG performed by [facility] 11/09/24 0853 MR#: [id number] Acct: [id number] Name: LASHAY BENNETT Rep #: [id number] : 1955 69 From: Joe Avila MD Attending Dr: Dr. Joe Avila MD Status: DEP A MB Ordering Dr: Joe Avila MD Date: 11/09/24 [place] [facility] [place] Sex: M C Admitted: [facility]12 Lead EKG performed by [facility] ECG Report Interpretation -----Sinus Bradycardia -Poor R-wave progression -nonspecific -consider old anterior infarct. BORDERLINEElectronica lly signed on 11/14/2024 at 09:35 by Joe Avila [employer] Version [id number] 11/14/24 0937 Date Joe Avila MD CC: Dr. Zulma Dye MD Date Dictated: 11/09/2453 Date Transcribed: 11/09/24852 [employer] Plating Supervisor: [place] Signed Normal [facility] Cardiology Visit Reporton Cardiology Visit Report [facility] [address] [place] [address] OFFICE VISIT Date of Service: 11/09/24 MR#: [id number] Acct: [id number] Name: LASHAY BENNETT Rep #: [id number] : 1955 Provider: Dr. Joe Avila MD Age/Sex: 69/M Location: [facility] Status: Signed HPI HPI History of Present Illness Details: Pleasant 69-year-old man with no previous cardiac history who presents with palpitations. He says that he is not sure why they started caring but he did see you in the office and blood work was done which demonstrated normal potassium and TSH levels. He was put on atenolol with improvement in his symptomatology. He denies any dizziness or diaphoresis no near-syncope or syncope. He has been compliant with his atenolol but he says that it makes him significantly fatigued. His most recent lipid profile demonstrates a total cholesterol of 208 HDL of 56 LDL of 129. His physical exam is unremarkable his electrocardiogram demonstrates sinus bradycardia with a rate of 53 bpm. 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 Required: No Accompanied by: Significant Other Is patient in pain?: No Allergies amoxicillin Allergy (Mild, Verified 11/09/24 08:57) Rash Medications ???Medication ???Instructions ???Recorded ???Confirmed ???Type aspirin 81 mg tablet,delayed 81 mg PO DAILY 06/01/21 11/09/24 H istory release atorvastatin 10 mg tablet 10 mg PO QODAY 06/01/21 11/09/24 H istory cholecalciferol (vitamin D3) 25 25 mcg PO DAILY 06/01/21 11/09/24 History mcg (1,000 unit) capsule tamsulosin 0.4 mg capsule 0.4 cap PO QHS 06/01/21 11/09/24 H istory atenolol 25 mg tablet 25 mg PO QDAY 10/15/24 11/09/24 Hi story niacin 500 mg tablet 500 mg PO QDAY 10/15/24 11/09/24 H istory Have you fallen in the past year?: No [facility] Medical History Cancer Prostate disease History of edema History of irregular heartbeat BPH (benign prostatic hyperplasia) High cholesterol Surgical History S/p nephrectomy S/P hemorrhoidectomy Family History Father Hypertension Mother Cancer uterine cancer Social History Smoking Status: Never smoker alcohol intake: never ROS Const Const: Positive for fatigue; Negative for weakness, headache(s), daytime sleepiness or difficulty sleeping ENT ENT: Negative for headache(s), dizziness or Nosebleed/epistaxis Cardio Chest Pain: No Palpitations: Yes Edema: Bilateral (BLE -trace ; wears compression stockings) Resp Respiratory: Negative for SOB with activity, SOB at rest, SOB orthopnea SOB lying down or Cough GI GI: Negative nausea, vomiting or heartburn Neuro Neuro: Negative for dizziness, lightheadedness, near syncope, headache(s) or weakness Endo Endo: Positive for fatigue Cardiology Exam Const Appearance: cooperative, healthy appearing, no acute distress, well developed and well groomed Nutritional Appearance: average body habitus and well nourished Orientation: alert, awake and oriented x3 Head Head: normal to inspection, normocephalic and atraumatic Ears: hearing grossly normal bilaterally and external ears normal Nose: external nose normal, nares normal, nasal mucous membranes and turbinates normal, septum normal and no nasal discharge Face and Sinus: face symmetric Mouth: oral mucosae normal, tongue normal, oropharynx normal and moist mucous membranes Teeth and gingiva: dentition normal Throat: posterior oropharynx normal, tonsils normal and uvula midline Eyes General: appearance normal, both eyes and all related structures Eyelids: eyelids normal Conjunctivae: conjunctivae normal Pupils: PERRL, normal by confrontation and accommodation normal EOM: EOM intact bilaterally Neck Neck: normal visual inspection, trachea midline and no JVD JVD: +5 Carotids: normal carotid upstroke and bounding pulses Chest Chest inspection: normal inspection of the chest, symmetric chest movement and normal respiratory effort Auscultation: Bilateral: Clear to Auscultation Cardio Palpation: normal PMI Rate: regular rate Rhythm: regular rhythm Heart sounds: S1 normal, S2 normal and normal, physiologic split S2; Negative rub, gallop or murmur GI GI: normal to inspection, soft, no hepatosplenomegaly and bowel sounds present Neuro General: patient alert, patient awake, patient oriented x3, gait normal, m (more content not included)... Normal [facility] Absolute lymphocyte countOrd ered By: Zulma Dye on 08-17-2024 Lymphocytes Auto (Unsp spec) [#/Vol] 0.77 10*3/uL Low 0.83-4.51 [facility] Absolute neutrophil countOrd ered By: Zulma Dye on 08-17-2024 Neutrophils (Bld) [#/Vol] 4.2 10*3/uL 2.0-7.7 [facility] Albumin to globulin ratioOrd ered By: Zulma Dye on 08-17-2024 Albumin/Globulin [Mass ratio] 1.1 {ratio} 0.9-2.4 [facility] Automated lymphocyte count a s percentage of total leukocytesOrdered By: Zulma Dye on 08-17-2024 Lymphocytes/100 WBC Auto (Unsp spec) 13.9 % Low 19-41 [facility] Basophil percentageOrdered B y: Zulma Dye on 08-17-2024 Basophils/100 WBC (Bld) 0.5 % 0-1 [facility] Bilirubin, totalOrdered By: Zulma Dye on 08-17-2024 Bilirubin [Mass/Vol] 1.30 mg/dL High 0.20-1.00 [facility] Comment on above: For patients on eltr ombopag therapy, use of Dimension Trout TBIL is not recommended. Blood urea nitrogen (BUN)/cr eatinine ratioOrdered By: Zulma Dye on 08-17-2024 Urea nitrogen/Creatinine [Mass ratio] 19.5 mg/mg 10-20 [facility] CBC W/Diff, Automatedon 07-29 Absolute Lymph 0.77 X10 3/uL Low 0.83-4.51 [facility] Comment on above: Performed By: #### L 100.0100, L501.9520, L500.4050 #### [facility] [address] [place], [address] Absolute Neut 4.2 X10 3/uL Normal 2.0-7.7 [facility] Comment on above: Performed By: #### L 100.0100, L501.9520, [id number] #### [facility] [address] [place], [address] Basophils/100 WBC (Bld) 0.5 % Normal 0-1 [facility] Comment on above: Performed By: #### L 100.0100, L501.9520, [id number] #### [facility] [address] [place], [address] Eosinophils/100 WBC (Bld) 1.3 % Normal 0-5 [facility] Comment on above: Performed By: #### L 100.0100, L501.9520, [id number] #### [facility] [address] [place], [address] Erythrocyte distribution width (RBC) [Ratio] 13.3 % Normal 11.6-14.6 [facility] Comment on above: Performed By: #### L 100.0100, L501.9520, L500.4050 #### [facility] [address] [place], [address] Hematocrit (Bld) [Volume fraction] 41.1 % Normal 40-54 [facility] Comment on above: Performed By: #### L 100.0100, L501.9520, [id number] #### [facility] [address] [place], [address] Hemoglobin (Bld) [Mass/Vol] 13.1 g/dL Normal 13.0-16.5 [facility] Comment on above: Performed By: #### L 100.0100, L501.9520, L500.4050 #### [facility] [address] [place], [address] IG% 0.200 Normal 0.0-0.9 [facility] Comment on above: Result Comment: IG% - Immature Granulocytes (promyelocytes, myelocytes and metamyelocytes) > 1% indicates that a LEFT SHIFT is Present. Performed By: #### L 100.0100, L501.9520, L500.4050 #### [facility] [address] [place], [address] Lymphocytes/100 WBC (Bld) 13.9 % Low 19-41 [facility] Comment on above: Performed By: #### L 100.0100, L501.9520, [id number] #### [facility] [address] [place], [address] MCH (RBC) [Entitic mass] 30.7 pg Normal 27.0-32.0 [facility] Comment on above: Performed By: #### L 100.0100, L501.9520, L500.4050 #### [facility] [address] [place], [address] MCHC (RBC) [Mass/Vol] 31.9 g/dL Low 32-36 [facility] Comment on above: Performed By: #### L 100.0100, L501.9520, L500.4050 #### [facility] [address] [place], [address] MCV (RBC) [Entitic vol] 96.3 fL High 80-94 [facility] Comment on above: Performed By: #### L 100.0100, L501.9520, L500.4050 #### [facility] [address] [place], [address] Monocytes/100 WBC (Bld) 8.8 % Normal 0-10 [facility] Comment on above: Performed By: #### L 100.0100, L501.9520, L500.4050 #### [facility] [address] [place], [address] Neutrophils/100 WBC (Bld) 75.3 % High 47-70 [facility] Comment on above: Performed By: #### L 100.0100, L501.9520, L500.4050 #### [facility] [address] [place], [address] Nucleated RBC (Bld) [#/Vol] 0 10*3/uL Normal 0-5 [facility] Comment on above: Performed By: #### L 100.0100, L501.9520, L500.4050 #### [facility] [address] [place], [address] Platelet mean volume (Bld) [Entitic vol] 9.1 fL Normal 6.2-12.0 [facility] Comment on above: Performed By: #### L 100.0100, L501.9520, L500.4050 #### [facility] [address] [place], [address] Platelets (Bld) [#/Vol] 194 10*3/uL Normal 150-450 [facility] Comment on above: Performed By: #### L 100.0100, L501.9520, [id number] #### [facility] [address] [place], [address] RBC (Bld) [#/Vol] 4.27 10*6/uL Low 4.6-6.2 [facility] Comment on above: Performed By: #### L 100.0100, L501.9520, L500.4050 #### [facility] [address] [place], [address] RDW SD 47.8 fl High 35.1-43.9 [facility] Comment on above: Performed By: #### L 100.0100, L501.9520, L500.4050 #### [facility] [address] [place], [address] WBC (Bld) [#/Vol] 5.5 10*3/uL Normal 4.4-11.0 [facility] Comment on above: Performed By: #### L 100.0100, L501.9520, L500.4050 #### [facility] [address] [place], [address] Carbon dioxide measurementOr dered By: Zulma Dye on 08-17-2024 CO2 [Moles/Vol] 30.0 mmol/L 21.0-32.0 [facility] Chloride measurementOrdered By: Zulma Dye on 08-17-2024 Chloride [Moles/Vol] 108 mmol/L High 98-107 [facility] Comprehensive Metabolic Prof ilon 08-17-2024 Albumin [Mass/Vol] 3.7 g/dL Normal 3.2-5.0 [facility] Comment on above: Performed By: #### L 100.0100, L501.9520, L500.4050 #### [facility] [address] [place], [address] Albumin/Globulin [Mass ratio] 1.1 {ratio} Normal 0.9-2.4 [facility] Comment on above: Performed By: #### L 100.0100, L501.9520, L500.4050 #### [facility] [address] [place], [address] ALK P 65 U/L Normal 45-117 [facility] Comment on above: Performed By: #### L 100.0100, L501.9520, L500.4050 #### [facility] [address] [place], [address] ALT [Catalytic activity/Vol] 19 U/L Normal 16-61 [facility] Comment on above: Performed By: #### L 100.0100, L501.9520, [id number] #### [facility] [address] [place], [address] AST [Catalytic activity/Vol] 18 U/L Normal 15-37 [facility] Comment on above: Performed By: #### L 100.0100, L501.9520, L500.4050 #### [facility] [address] [place], [address] Bilirubin [Mass/Vol] 1.30 mg/dL High 0.20-1.00 [facility] Comment on above: Result Comment: For patients on eltrombopag therapy, use of Dimension Trout TBIL is not recommended. Performed By: #### L 100.0100, L501.9520, L500.4050 #### [facility] [address] [place], [address] BUN/CRE 19.5 RATIO Normal 10-20 [facility] Comment on above: Performed By: #### L 100.0100, L501.9520, L500.4050 #### [facility] [address] [place], [address] CA,Total 9.6 mg/dL Normal 8.5-10.1 [facility] Comment on above: Performed By: #### L 100.0100, L501.9520, L500.4050 #### [facility] [address] [place], [address] Chloride [Moles/Vol] 108 mmol/L High 98-107 [facility] Comment on above: Performed By: #### L 100.0100, L501.9520, L500.4050 #### [facility] [address] [place], [address] CO2 [Moles/Vol] 30.0 mmol/L Normal 21.0-32.0 [facility] Comment on above: Performed By: #### L 100.0100, L501.9520, L500.4050 #### [facility] [address] [place], [address] Creatinine [Mass/Vol] 0.87 mg/dL Normal 0.70-1.30 [facility] Comment on above: Result Comment: The validity of the calculated GFR GFRAA in patients over 70 years has not been determined. Clinical correlation is essential. Performed By: #### L 100.0100, L501.9520, L500.4050 #### [facility] [address] [place], [address] EST GFR - AA 111 mL/min Normal >60 [facility] Comment on above: Result Comment: Afri can Bulgarian GFR Calc Performed By: #### L 100.0100, L501.9520, L500.4050 #### [facility] [address] [place], [address] GAP 3 Low 5-15 [facility] Comment on above: Performed By: #### L 100.0100, L501.9520, L500.4050 #### [facility] [address] [place], [address] GFR/1.73 sq M.predicted among non-blacks MDRD (S/P/Bld) [Vol rate/Area] 92 mL/min/{1.73_m2} Normal >60 [facility] Comment on above: Result Comment: Non- GFR Calc Performed By: #### L 100.0100, L501.9520, L500.4050 #### [facility] [address] [place], [address] Globulin (S) [Mass/Vol] 3.4 g/dL Normal 2.2-4.2 [facility] Comment on above: Performed By: #### L 100.0100, L501.9520, L500.4050 #### [facility] [address] [place], [address] Glucose [Mass/Vol] 103 mg/dL Normal 74-106 [facility] Comment on above: Result Comment: Fast ing Glucose result from 100 to 125 mg/dL suggests IMPAIRED HOMEOSTASIS per A.D.A. criteria. Performed By: #### L 100.0100, L501.9520, L500.4050 #### [facility] [address] [place], [address] Potassium [Moles/Vol] 4.6 mmol/L Normal 3.5-5.1 [facility] Comment on above: Performed By: #### L 100.0100, L501.9520, L500.4050 #### [facility] [address] [place] [place], [address] Sodium [Moles/Vol] 141 mmol/L Normal 136-145 [facility] Comment on above: Performed By: #### L 100.0100, L501.9520, L500.4050 #### [facility] [address] [place], [address] T PROT 7.1 g/dL Normal 6.4-8.2 [facility] Comment on above: Performed By: #### L 100.0100, L501.9520, [id number] #### [facility] [address] [place], [address] Urea nitrogen [Mass/Vol] 17 mg/dL Normal 7-18 [facility] Comment on above: Performed By: #### L 100.0100, L501.9520, [id number] #### [facility] [address] [place], [address] Eosinophil percentageOrdered By: Zulma Dye on 08-17-2024 Eosinophils/100 WBC (Bld) 1.3 % 0-5 [facility] Erythrocyte distribution wid th ratioOrdered By: Zulma Dye on 08-17-2024 Erythrocyte distribution width (RBC) [Ratio] 13.3 % 11.6-14.6 [facility] Erythrocyte distribution wid th standard deviationOrdered By: Zulma Dye on 08-17-2024 Erythrocyte distribution width (RBC) [Entitic vol] 47.8 fL High 35.1-43.9 [facility] Erythrocyte distribution width (RBC) [Ratio] 47.8 fl High 35.1-43.9 [facility] Estimated glomerular filtrat ion rate (GFR) AmericanOrdered By: Zulma Dye on 08-17-2024 Estimated GFR (MDRD) Amer 111 mL/min >60 [facility] Comment on above: GFR Calc Glomerular filtration rate ( GFR) estimationOrdered By: Zulma Dye on 08-17-2024 Estimated GFR (MDRD) Non-Af Amer 92 mL/min >60 [facility] Comment on above: Non- GFR Calc GFR/1.73 sq M.predicted among non-blacks MDRD (S/P/Bld) [Vol rate/Area] 92 mL/min/{1.73_m2} >60 [facility] Comment on above: Non- GFR Calc Glucose measurementOrdered B y: Zulma Dye on 08-17-2024 Glucose [Mass/Vol] 103 mg/dL 74-106 [facility] Comment on above: Fasting Glucose resu lt from 100 to 125 mg/dL suggests IMPAIRED HOMEOSTASIS per A.D.A. criteria. Hematocrit Auto (Bld) [Volum e fraction]Ordered By: Zulma Dye on 08-17-2024 Hematocrit (Bld) [Volume fraction] 41.1 % 40-54 [facility] Hemoglobin measurementOrdere d By: Zulma Dye on 08-17-2024 Hemoglobin (Bld) [Mass/Vol] 13.1 g/dL 13.0-16.5 [facility] Immature granulocytes/100 WB C Auto (Bld)Ordered By: Zulma Dye on 08-17-2024 Immature granulocytes/100 WBC (Bld) 0.200 % 0.0-0.9 [facility] Comment on above: IG% - Immature Granu locytes (promyelocytes, myelocytes and metamyelocytes) > 1% indicates that a LEFT SHIFT is Present. Laboratory - Chemistry and C hemistry - challengeOrdered By: Zulma Dye on 08-17-2024 AST [Catalytic activity/Vol] 18 U/L 15-37 [facility] Lymphocytes Auto (Unsp spec) [#/Vol]Ordered By: Zulma Dye on 08-17-2024 Lymphocytes (Bld) [#/Vol] 0.77 10*3/uL Low 0.83-4.51 [facility] Lymphocytes/100 WBC Auto (Un sp spec)Ordered By: Zulma Dye on 08-17-2024 Lymphocytes/100 WBC (Bld) 13.9 % Low 19-41 [facility] MCV (mean corpuscular volume ) determinationOrdered By: Zulma Dye on 08-17-2024 MCV (RBC) [Entitic vol] 96.3 fL High 80-94 [facility] Mean corpuscular hemoglobin (MCH) determinationOrdered By: Zulma Dye on 08-17-2024 MCH (RBC) [Entitic mass] 30.7 pg 27.0-32.0 [facility] Mean corpuscular hemoglobin concentration (MCHC) determinationOrdered By: Zulma Dye on 08-17-2024 MCHC (RBC) [Mass/Vol] 31.9 g/dL Low 32-36 [facility] Mean platelet volume determi nationOrdered By: Zulma Dye on 08-17-2024 Platelet mean volume (Bld) [Entitic vol] 9.1 fL 6.2-12.0 [facility] Monocyte percentageOrdered B y: Zulma Dye on 08-17-2024 Monocytes/100 WBC (Bld) 8.8 % 0-10 [facility] Neutrophil percentageOrdered By: Zulma Dye on 08-17-2024 Neutrophils/100 WBC (Bld) 75.3 % High 47-70 [facility] Nucleated red blood cell per centageOrdered By: Zulma Dye on 08-17-2024 Nucleated RBC/100 WBC (Bld) [Ratio] 0 % 0-5 [facility] Platelet countOrdered By: Ruperto Dye on 08-17-2024 Platelets (Bld) [#/Vol] 194 10*3/uL 150-450 [facility] Potassium measurementOrdered By: Zulma Dye on 08-17-2024 Potassium [Moles/Vol] 4.6 mmol/L 3.5-5.1 [facility] RBC Auto (Bld) [#/Vol]Ordere d By: Zulma Dye on 08-17-2024 RBC (Bld) [#/Vol] 4.27 10*6/uL Low 4.6-6.2 [facility] Serum anion gap measurementO rdered By: Zulma Dye on 08-17-2024 Anion gap [Moles/Vol] 3 mmol/L Low 5-15 [facility] Serum globulin measurementOr dered By: Zulma Dye on 08-17-2024 Globulin (S) [Mass/Vol] 3.4 g/dL 2.2-4.2 [facility] Serum or plasma alanine kebede otransferase (ALT) measurementOrdered By: Zulma Dye on 08-17-2024 ALT [Catalytic activity/Vol] 19 U/L 16-61 [facility] Serum or plasma albumin eileen urement (mass/volume)Ordered By: Zulma Dye on 08-17-2024 Albumin [Mass/Vol] 3.7 g/dL 3.2-5.0 [facility] Serum or plasma alkaline tara sphatase measurementOrdered By: Zulma Dye on 08-17-2024 ALP [Catalytic activity/Vol] 65 U/L 45-117 [facility] Serum or plasma calcium eileen urement (mass/volume)Ordered By: Zulma Dye on 08-17-2024 Calcium [Mass/Vol] 9.6 mg/dL 8.5-10.1 [facility] Serum or plasma creatinine m easurement (mass/volume)Ordered By: Zulma Dye on 08-17-2024 Creatinine [Mass/Vol] 0.87 mg/dL 0.70-1.30 [facility] Comment on above: The validity of the calculated GFR & GFRAA in patients over 70 years has not been determined. Clinical correlation is essential. Serum or plasma thyroid stim ulating hormone (TSH) measurement (units/volume)Ordered By: Zulma Dye on 08-17-2024 TSH Qn 2.090 uIU/mL 0.358-3.740 [facility] Serum or plasma urea nitroge n measurement (mass/volume)Ordered By: Zulma Dye on 08-17-2024 Urea nitrogen [Mass/Vol] 17 mg/dL 7-18 [facility] Sodium levelOrdered By: Prashant Dye on 08-17-2024 Sodium [Moles/Vol] 141 mmol/L 136-145 [facility] TSH QnOrdered By: Zulma tuttle on 08-17-2024 Thyroid Stimulating Hormone (TSH) 2.090 uIU/mL 0.358-3.740 [facility] Thyroid Stim Hormone (TSH)on 08-17-2024 TSH 2.090 uIU/mL Normal 0.358-3.740 [facility] Comment on above: Performed By: #### L 100.0100, L501.9520, L500.4050 #### [facility] [address] [place], [address] Total proteinOrdered By: Bojrn Dye on 08-17-2024 Protein [Mass/Vol] 7.1 g/dL 6.4-8.2 [facility] White blood cell (WBC) count Ordered By: Zulma Dye on 08-17-2024 WBC (Bld) [#/Vol] 5.5 10*3/uL 4.4-11.0 [facility] Absolute neutrophil countOrd ered By: Zulma Dye on 06-12-2024 Neutrophils (Bld) [#/Vol] 2.8 10*3/uL 2.0-7.7 [facility] Albumin to globulin ratioOrd ered By: Zulma Dye on 06-12-2024 Albumin/Globulin [Mass ratio] 1.0 {ratio} 0.9-2.4 [facility] Basophil percentageOrdered B y: Zulma Dye on 06-12-2024 Basophils/100 WBC (Bld) 0.9 % 0-1 [facility] Bilirubin, totalOrdered By: Zulma Dye on 06-12-2024 Bilirubin [Mass/Vol] 1.10 mg/dL High 0.20-1.00 [facility] Comment on above: For patients on eltr ombopag therapy, use of Dimension Trout TBIL is not recommended. Blood urea nitrogen (BUN)/cr eatinine ratioOrdered By: Zulma Dye on 06-12-2024 Urea nitrogen/Creatinine [Mass ratio] 19.3 mg/mg 10-20 [facility] CBC W/Diff, Automatedon 05-27 Absolute Lymph 1.08 X10 3/uL Normal 0.83-4.51 [facility] Comment on above: Performed By: #### L 100.0100, L500.4100, [id number] #### [facility] [address] [place], [address] Absolute Neut 2.8 X10 3/uL Normal 2.0-7.7 [facility] Comment on above: Performed By: #### L 100.0100, L500.4100, [id number] #### [facility] [address] [place], [address] Basophils/100 WBC (Bld) 0.9 % Normal 0-1 [facility] Comment on above: Performed By: #### L 100.0100, L500.4100, [id number] #### [facility] [address] [place], [address] Eosinophils/100 WBC (Bld) 2.9 % Normal 0-5 [facility] Comment on above: Performed By: #### L 100.0100, L500.4100, [id number] #### [facility] [address] [place], [address] Erythrocyte distribution width (RBC) [Ratio] 13.1 % Normal 11.6-14.6 [facility] Comment on above: Performed By: #### L 100.0100, L500.4100, [id number] #### [facility] [address] [place], [address] Hematocrit (Bld) [Volume fraction] 41.9 % Normal 40-54 [facility] Comment on above: Performed By: #### L 100.0100, L500.4100, [id number] #### [facility] [address] [place], [address] Hemoglobin (Bld) [Mass/Vol] 13.3 g/dL Normal 13.0-16.5 [facility] Comment on above: Performed By: #### L 100.0100, L500.4100, L500.4050 #### [facility] [address] [place], [address] IG% 0.200 Normal 0.0-0.9 [facility] Comment on above: Result Comment: IG% - Immature Granulocytes (promyelocytes, myelocytes and metamyelocytes) > 1% indicates that a LEFT SHIFT is Present. Performed By: #### L 100.0100, L500.4100, L500.4050 #### [facility] [address] [place], [address] Lymphocytes/100 WBC (Bld) 24.4 % Normal 19-41 [facility] Comment on above: Performed By: #### L 100.0100, L500.4100, [id number] #### [facility] [address] [place], [address] MCH (RBC) [Entitic mass] 30.4 pg Normal 27.0-32.0 [facility] Comment on above: Performed By: #### L 100.0100, L500.4100, L500.4050 #### [facility] [address] [place], [address] MCHC (RBC) [Mass/Vol] 31.7 g/dL Low 32-36 [facility] Comment on above: Performed By: #### L 100.0100, L500.4100, [id number] #### [facility] [address] [place], [address] MCV (RBC) [Entitic vol] 95.9 fL High 80-94 [facility] Comment on above: Performed By: #### L 100.0100, L500.4100, [id number] #### [facility] [address] [place], [address] Monocytes/100 WBC (Bld) 8.4 % Normal 0-10 [facility] Comment on above: Performed By: #### L 100.0100, L500.4100, [id number] #### [facility] [address] [place], [address] Neutrophils/100 WBC (Bld) 63.2 % Normal 47-70 [facility] Comment on above: Performed By: #### L 100.0100, L500.4100, [id number] #### [facility] [address] [place], [address] Nucleated RBC (Bld) [#/Vol] 0 10*3/uL Normal 0-5 [facility] Comment on above: Performed By: #### L 100.0100, L500.4100, [id number] #### [facility] [address] [place], [address] Platelet mean volume (Bld) [Entitic vol] 8.5 fL Normal 6.2-12.0 [facility] Comment on above: Performed By: #### L 100.0100, L500.4100, L500.4050 #### [facility] [address] [place], [address] Platelets (Bld) [#/Vol] 197 10*3/uL Normal 150-450 [facility] Comment on above: Performed By: #### L 100.0100, L500.4100, L500.4050 #### [facility] [address] [place], [address] RBC (Bld) [#/Vol] 4.37 10*6/uL Low 4.6-6.2 [facility] Comment on above: Performed By: #### L 100.0100, L500.4100, L500.4050 #### [facility] [address] [place], [address] RDW SD 46.6 fl High 35.1-43.9 [facility] Comment on above: Performed By: #### L 100.0100, L500.4100, [id number] #### [facility] [address] [place], [address] WBC (Bld) [#/Vol] 4.4 10*3/uL Normal 4.4-11.0 [facility] Comment on above: Performed By: #### L 100.0100, L500.4100, L500.4050 #### [facility] [address] [place], [address] Carbon dioxide measurementOr dered By: Zulma Dye on 06-12-2024 CO2 [Moles/Vol] 30.0 mmol/L 21.0-32.0 [facility] Chloride measurementOrdered By: Zulma Dye on 06-12-2024 Chloride [Moles/Vol] 107 mmol/L 98-107 [facility] Comprehensive Metabolic Prof ilon 06-12-2024 Albumin [Mass/Vol] 3.4 g/dL Normal 3.2-5.0 [facility] Comment on above: Performed By: #### L 100.0100, L500.4100, L500.4050 #### [facility] [address] [place], [address] Albumin/Globulin [Mass ratio] 1.0 {ratio} Normal 0.9-2.4 [facility] Comment on above: Performed By: #### L 100.0100, L500.4100, L500.4050 #### [facility] [address] [place], [address] ALK P 66 U/L Normal 45-117 [facility] Comment on above: Performed By: #### L 100.0100, L500.4100, [id number] #### [facility] [address] [place], [address] ALT [Catalytic activity/Vol] 18 U/L Normal 16-61 [facility] Comment on above: Performed By: #### L 100.0100, L500.4100, [id number] #### [facility] [address] [place], [address] AST [Catalytic activity/Vol] 19 U/L Normal 15-37 [facility] Comment on above: Performed By: #### L 100.0100, L500.4100, L500.4050 #### [facility] [address] [place], [address] Bilirubin [Mass/Vol] 1.10 mg/dL High 0.20-1.00 [facility] Comment on above: Result Comment: For patients on eltrombopag therapy, use of Dimension Trout TBIL is not recommended. Performed By: #### L 100.0100, L500.4100, L500.4050 #### [facility] [address] [place], [address] BUN/CRE 19.3 RATIO Normal 10-20 [facility] Comment on above: Performed By: #### L 100.0100, L500.4100, L500.4050 #### [facility] [address] [place], [address] CA,Total 8.9 mg/dL Normal 8.5-10.1 [facility] Comment on above: Performed By: #### L 100.0100, L500.4100, [id number] #### [facility] [address] [place], [address] Chloride [Moles/Vol] 107 mmol/L Normal 98-107 [facility] Comment on above: Performed By: #### L 100.0100, L500.4100, [id number] #### [facility] [address] [place], [address] CO2 [Moles/Vol] 30.0 mmol/L Normal 21.0-32.0 [facility] Comment on above: Performed By: #### L 100.0100, L500.4100, L500.4050 #### [facility] [address] [place], [address] Creatinine [Mass/Vol] 0.94 mg/dL Normal 0.70-1.30 [facility] Comment on above: Result Comment: The validity of the calculated GFR GFRAA in patients over 70 years has not been determined. Clinical correlation is essential. Performed By: #### L 100.0100, L500.4100, L500.4050 #### [facility] [address] [place], [address] EST GFR - AA 103 mL/min Normal >60 [facility] Comment on above: Result Comment: Afri can Bulgarian GFR Calc Performed By: #### L 100.0100, L500.4100, L500.4050 #### [facility] [address] [place], [address] GAP 3 Low 5-15 [facility] Comment on above: Performed By: #### L 100.0100, L500.4100, L500.4050 #### [facility] [address] [place], [address] GFR/1.73 sq M.predicted among non-blacks MDRD (S/P/Bld) [Vol rate/Area] 85 mL/min/{1.73_m2} Normal >60 [facility] Comment on above: Result Comment: Non- GFR Calc Performed By: #### L 100.0100, L500.4100, L500.4050 #### [facility] [address] [place], [address] Globulin (S) [Mass/Vol] 3.5 g/dL Normal 2.2-4.2 [facility] Comment on above: Performed By: #### L 100.0100, L500.4100, L500.4050 #### [facility] [address] [place], [address] Glucose [Mass/Vol] 95 mg/dL Normal 74-106 [facility] Comment on above: Performed By: #### L 100.0100, L500.4100, L500.4050 #### [facility] [address] [place], [address] Potassium [Moles/Vol] 3.9 mmol/L Normal 3.5-5.1 [facility] Comment on above: Performed By: #### L 100.0100, L500.4100, L500.4050 #### [facility] [address] [place], [address] Sodium [Moles/Vol] 140 mmol/L Normal 136-145 [facility] Comment on above: Performed By: #### L 100.0100, L500.4100, L500.4050 #### [facility] [address] [place], [address] T PROT 6.9 g/dL Normal 6.4-8.2 [facility] Comment on above: Performed By: #### L 100.0100, L500.4100, L500.4050 #### [facility] [address] [place], [address] Urea nitrogen [Mass/Vol] 18 mg/dL Normal 7-18 [facility] Comment on above: Performed By: #### L 100.0100, L500.4100, L500.4050 #### [facility] [address] [place], [address] Eosinophil percentageOrdered By: Zulma Dye on 06-12-2024 Eosinophils/100 WBC (Bld) 2.9 % 0-5 [facility] Erythrocyte distribution wid th ratioOrdered By: Zulma Dye on 06-12-2024 Erythrocyte distribution width (RBC) [Ratio] 13.1 % 11.6-14.6 [facility] Erythrocyte distribution wid th standard deviationOrdered By: Zulma Dye on 06-12-2024 Erythrocyte distribution width (RBC) [Entitic vol] 46.6 fL High 35.1-43.9 [facility] Estimated glomerular filtrat ion rate (GFR) AmericanOrdered By: Zulma Dye on 06-12-2024 Estimated GFR (MDRD) Amer 103 mL/min >60 [facility] Comment on above: GFR Calc Glomerular filtration rate ( GFR) estimationOrdered By: Zulma Dye on 06-12-2024 Estimated GFR (MDRD) Non-Af Amer 85 mL/min >60 [facility] Comment on above: Non- GFR Calc Glucose measurementOrdered B y: Zulma Dye on 06-12-2024 Glucose [Mass/Vol] 95 mg/dL 74-106 [facility] Hematocrit Auto (Bld) [Volum e fraction]Ordered By: Zulma Dye on 06-12-2024 Hematocrit (Bld) [Volume fraction] 41.9 % 40-54 [facility] Hemoglobin measurementOrdere d By: Zulma Dye on 06-12-2024 Hemoglobin (Bld) [Mass/Vol] 13.3 g/dL 13.0-16.5 [facility] High density lipoprotein (HD L) measurementOrdered By: Zulma Dye on 06-12-2024 Cholesterol in HDL [Mass/Vol] 56 mg/dL >40 [facility] Comment on above: The drugs N-Acetylcy steine and Metamizole may falsely depress this assay. Reference Range HDL <40 mg/dL Low HDL Cholesterol HDL >or= 60 mg/dL High HDL Cholesterol Immature granulocytes/100 WB C Auto (Bld)Ordered By: Zulma Dye on 06-12-2024 Immature granulocytes/100 WBC (Bld) 0.200 % 0.0-0.9 [facility] Comment on above: IG% - Immature Granu locytes (promyelocytes, myelocytes and metamyelocytes) > 1% indicates that a LEFT SHIFT is Present. Laboratory - Chemistry and C hemistry - challengeOrdered By: Zulma Dye on 06-12-2024 AST [Catalytic activity/Vol] 19 U/L 15-37 [facility] Lipid Profileon 06-12-2024 Cholesterol [Mass/Vol] 208 mg/dL High 200 [facility] Comment on above: Result Comment: <200 mg/dL Desirable 200-240 mg/dL Borderline >240 mg/dL High Risk Performed By: #### L 100.0100, L500.4100, L500.4050 #### [facility] [address] [facility], [address] Cholesterol in HDL [Mass/Vol] 56 mg/dL Normal [facility] Comment on above: Result Comment: The drugs N-Acetylcysteine and Metamizole may falsely depress this assay. Reference Range HDL <40 mg/dL Low HDL Cholesterol HDL >or= 60 mg/dL High HDL Cholesterol Performed By: #### L 100.0100, L500.4100, L500.4050 #### [facility] [address] [place], [address] Cholesterol in LDL [Mass/Vol] 129 mg/dL Normal 0-130 [facility] Comment on above: Performed By: #### L 100.0100, L500.4100, L500.4050 #### [facility] [address] [place], [address] Cholesterol in VLDL [Mass/Vol] 23 mg/dL Normal 5-40 [facility] Comment on above: Performed By: #### L 100.0100, L500.4100, L500.4050 #### [facility] [address] [place], [address] Triglyceride [Mass/Vol] 116 mg/dL Normal [facility] Comment on above: Result Comment: The drugs N-Acetylcysteine and Metamizole may falsely depress this assay. Serum Triglycerides Reference Interval Normal <150 mg/dL Borderline high 150 - 199 mg/dL High 200 - 499 mg/dL Very High > or = 500 mg/dL Performed By: #### L 100.0100, L500.4100, L500.4050 #### [facility] [address] [place], [address] Low density lipoprotein (LDL ) cholesterol measurementOrdered By: Zulma Dye on 06-12-2024 Cholesterol in LDL [Mass/Vol] 129 mg/dL 0-130 [facility] Lymphocytes Auto (Unsp spec) [#/Vol]Ordered By: Zulma Dye on 06-12-2024 Lymphocytes (Bld) [#/Vol] 1.08 10*3/uL 0.83-4.51 [facility] Lymphocytes/100 WBC Auto (Un sp spec)Ordered By: Zulma Dye on 06-12-2024 Lymphocytes/100 WBC (Bld) 24.4 % 19-41 [facility] MCV (mean corpuscular volume ) determinationOrdered By: Zulma Dye on 06-12-2024 MCV (RBC) [Entitic vol] 95.9 fL High 80-94 [facility] Mean corpuscular hemoglobin (MCH) determinationOrdered By: Zulma Dye on 06-12-2024 MCH (RBC) [Entitic mass] 30.4 pg 27.0-32.0 [facility] Mean corpuscular hemoglobin concentration (MCHC) determinationOrdered By: Zulma Dye on 06-12-2024 MCHC (RBC) [Mass/Vol] 31.7 g/dL Low 32-36 [facility] Mean platelet volume determi nationOrdered By: Zulma Dye on 06-12-2024 Platelet mean volume (Bld) [Entitic vol] 8.5 fL 6.2-12.0 [facility] Monocyte percentageOrdered B y: Zulma Dye on 06-12-2024 Monocytes/100 WBC (Bld) 8.4 % 0-10 [facility] Neutrophil percentageOrdered By: Zulma Dye on 06-12-2024 Neutrophils/100 WBC (Bld) 63.2 % 47-70 [facility] Nucleated red blood cell per centageOrdered By: Zulma Dye on 06-12-2024 Nucleated RBC/100 WBC (Bld) [Ratio] 0 % 0-5 [facility] Platelet countOrdered By: Ruperto Dye on 06-12-2024 Platelets (Bld) [#/Vol] 197 10*3/uL 150-450 [facility] Potassium measurementOrdered By: Zulma Dye on 06-12-2024 Potassium [Moles/Vol] 3.9 mmol/L 3.5-5.1 [facility] RBC Auto (Bld) [#/Vol]Ordere d By: Zulma Dye on 06-12-2024 RBC (Bld) [#/Vol] 4.37 10*6/uL Low 4.6-6.2 [facility] Serum anion gap measurementO rdered By: Zulma Dye on 06-12-2024 Anion gap [Moles/Vol] 3 mmol/L Low 5-15 [facility] Serum globulin measurementOr dered By: Zulma Dye on 06-12-2024 Globulin (S) [Mass/Vol] 3.5 g/dL 2.2-4.2 [facility] Serum or plasma alanine kebede otransferase (ALT) measurementOrdered By: Zulma Dye on 06-12-2024 ALT [Catalytic activity/Vol] 18 U/L 16-61 [facility] Serum or plasma albumin eileen urement (mass/volume)Ordered By: Zulma Dye on 06-12-2024 Albumin [Mass/Vol] 3.4 g/dL 3.2-5.0 [facility] Serum or plasma alkaline tara sphatase measurementOrdered By: Zulma Dye on 06-12-2024 ALP [Catalytic activity/Vol] 66 U/L 45-117 [facility] Serum or plasma calcium eileen urement (mass/volume)Ordered By: Zulma Dye on 06-12-2024 Calcium [Mass/Vol] 8.9 mg/dL 8.5-10.1 [facility] Serum or plasma cholesterol measurement (mass/volume)Ordered By: Zulma Dye on 06-12-2024 Cholesterol [Mass/Vol] 208 mg/dL High <200 [facility] Comment on above: <200 mg/dL Desirable 200-240 mg/dL Borderline >240 mg/dL High Risk Serum or plasma creatinine m easurement (mass/volume)Ordered By: Zulma Dye on 06-12-2024 Creatinine [Mass/Vol] 0.94 mg/dL 0.70-1.30 [facility] Comment on above: The validity of the calculated GFR & GFRAA in patients over 70 years has not been determined. Clinical correlation is essential. Serum or plasma urea nitroge n measurement (mass/volume)Ordered By: Zulma Dye on 06-12-2024 Urea nitrogen [Mass/Vol] 18 mg/dL 7-18 [facility] Sodium levelOrdered By: Prashant Dye on 06-12-2024 Sodium [Moles/Vol] 140 mmol/L 136-145 [facility] Total proteinOrdered By: Bjorn Dye on 06-12-2024 Protein [Mass/Vol] 6.9 g/dL 6.4-8.2 [facility] Triglycerides measurementOrd ered By: Zulma Dye on 06-12-2024 Triglyceride [Mass/Vol] 116 mg/dL <199 [facility] Comment on above: The drugs N-Acetylcy steine and Metamizole may falsely depress this assay.Serum Triglycerides Reference Interval Normal <150 mg/dL Borderline high 150 - 199 mg/dL High 200 - 499 mg/dL Very High > or = 500 mg/dL Very low density lipoprotein (VLDL) cholesterol measurementOrdered By: Zulma Dye on 06-12-2024 VLDL Cholesterol 23 mg/dL 5-40 [facility] White blood cell (WBC) count Ordered By: Zulma Dye on 06-12-2024 WBC (Bld) [#/Vol] 4.4 10*3/uL 4.4-11.0 [facility] Absolute lymphocyte countOrd ered By: Zulma Dye on 06-01-2023 Lymphocytes Auto (Unsp spec) [#/Vol] 1.14 10*3/uL 0.83-4.51 [facility] Basophil percentageOrdered B y: Zulma Dye on 06-01-2023 Basophils/100 WBC (Bld) 0.8 % 0-1 [facility] Bilirubin [Mass/Vol] 1.80 mg/dL 0.20-1.00 [facility] Comment on above: For patients on eltr ombopag therapy, use of Dimension Trout TBIL is not recommended. Chloride [Moles/Vol] 107 mmol/L 98-107 [facility] Cholesterol [Mass/Vol] 193 mg/dL <200 [facility] Comment on above: <200 mg/dL Desirable 200-240 mg/dL Borderline >240 mg/dL High Risk Eosinophils/100 WBC (Bld) 4.3 % 0-5 [facility] Glucose [Mass/Vol] 88 mg/dL 74-106 [facility] Neutrophils (Bld) [#/Vol] 2.3 10*3/uL 2.0-7.7 [facility] Neutrophils/100 WBC (Bld) 56.3 % 47-70 [facility] Potassium [Moles/Vol] 3.9 mmol/L 3.5-5.1 [facility] Protein [Mass/Vol] 6.9 g/dL 6.4-8.2 [facility] Sodium [Moles/Vol] 143 mmol/L 136-145 [facility] Triglyceride [Mass/Vol] 85 mg/dL <199 [facility] Comment on above: The drugs N-Acetylcy steine and Metamizole may falsely depress this assay.Serum Triglycerides Reference Interval Normal <150 mg/dL Borderline high 150 - 199 mg/dL High 200 - 499 mg/dL Very High > or = 500 mg/dL WBC (Bld) [#/Vol] 4.0 10*3/uL 4.4-11.0 [facility] Blood erythrocytes count (nu mber/volume)Ordered By: Zulma Dye on 06-01-2023 RBC (Bld) [#/Vol] 4.30 10*6/uL 4.6-6.2 [facility] Blood hemoglobin measurement (mass/volume)Ordered By: Zulma Dye on 06-01-2023 Hemoglobin (Bld) [Mass/Vol] 13.0 g/dL 13.0-16.5 [facility] Blood lymphocytes/100 leukoc ytesOrdered By: Zulma Dye on 06-01-2023 Lymphocytes/100 WBC (Bld) 28.5 % 19-41 [facility] Blood monocytes/100 leukocyt esOrdered By: Zulma Dye on 06-01-2023 Monocytes/100 WBC (Bld) 9.8 % 0-10 [facility] Blood platelet mean volumeOr dered By: Zulma Dye on 06-01-2023 Platelet mean volume (Bld) [Entitic vol] 9.1 fL 6.2-12.0 [facility] Determination of erythrocyte mean corpuscular volume (MCV)Ordered By: Zulma Dye on 06-01-2023 MCV (RBC) [Entitic vol] 97.0 fL 80-94 [facility] Hematocrit Auto (Bld) [Volum e fraction]Ordered By: Zulma Dye on 06-01-2023 Hematocrit (Bld) [Volume fraction] 41.7 % 40-54 [facility] Laboratory - Chemistry and C hemistry - challengeOrdered By: Zulma Dye on 06-01-2023 ALP [Catalytic activity/Vol] 58 U/L 45-117 [facility] ALT [Catalytic activity/Vol] 18 U/L 16-61 [facility] CO2 [Moles/Vol] 30.0 mmol/L 21.0-32.0 [facility] Globulin (S) [Mass/Vol] 3.3 g/dL 2.2-4.2 [facility] Urea nitrogen/Creatinine [Mass ratio] 22.7 mg/mg 10-20 [facility] Laboratory - Hematology and Cell countsOrdered By: Zulma Dye on 06-01-2023 Erythrocyte distribution width (RBC) [Entitic vol] 47.9 fL 35.1-43.9 [facility] Erythrocyte distribution width (RBC) [Ratio] 13.4 % 11.6-14.6 [facility] Immature granulocytes/100 WBC (Bld) 0.300 % 0.0-0.9 [facility] Comment on above: IG% - Immature Granu locytes (promyelocytes, myelocytes and metamyelocytes) > 1% indicates that a LEFT SHIFT is Present. MCH (RBC) [Entitic mass] 30.2 pg 27.0-32.0 [facility] Nucleated RBC/100 WBC (Bld) [Ratio] 0 % 0-5 [facility] MCHC Auto (RBC) [Mass/Vol]Or dered By: Zulma Dye on 06-01-2023 MCHC (RBC) [Mass/Vol] 31.2 g/dL 32-36 [facility] No Panel InformationOrdered By: Zulma Dye on 06-01-2023 Estimated GFR (MDRD) Amer 110 mL/min >60 [facility] Comment on above: GFR Calc Estimated GFR (MDRD) Non-Af Amer 91 mL/min >60 [facility] Comment on above: Non- GFR Calc Prostate Specific Antigen Screen 1.46 ng/mL 0.00-4.00 [facility] Comment on above: This test was perfor med using the TPSA assay method for the[facility] system. Values obtained with differentassay methods cannot be used interchangably.When changing PSA assays in the course of monitoring apatient, additional sequential testing should be carriedout to confirm baseline values. Platelets bldOrdered By: Bjorn Dye on 06-01-2023 Platelets (Bld) [#/Vol] 188 10*3/uL 150-450 [facility] Serum or plasma albumin eileen urement (mass/volume)Ordered By: Zulma Dye on 06-01-2023 Albumin [Mass/Vol] 3.6 g/dL 3.2-5.0 [facility] Serum or plasma albumin/glob ulin mass ratioOrdered By: Zulma Dye on 06-01-2023 Albumin/Globulin [Mass ratio] 1.1 {ratio} 0.9-2.4 [facility] Serum or plasma calcium eileen urement (mass/volume)Ordered By: Zulma Dye on 06-01-2023 Calcium [Mass/Vol] 8.7 mg/dL 8.5-10.1 [facility] Serum or plasma cholesterol in HDL measurement (mass/volume)Ordered By: Zulma Dye on 06-01-2023 Cholesterol in HDL [Mass/Vol] 62 mg/dL >40 [facility] Comment on above: The drugs N-Acetylcy steine and Metamizole may falsely depress this assay. Reference Range HDL <40 mg/dL Low HDL Cholesterol HDL >or= 60 mg/dL High HDL Cholesterol Serum or plasma cholesterol in VLDL measurement (mass/volume)Ordered By: Zulma Dye on 06-01-2023 Cholesterol in VLDL [Mass/Vol] 17 mg/dL 5-40 [facility] Serum or plasma creatinine m easurement (mass/volume)Ordered By: Zulma Dye on 06-01-2023 Creatinine [Mass/Vol] 0.88 mg/dL 0.70-1.30 [facility] Comment on above: The validity of the calculated GFR & GFRAA in patients over 70 years has not been determined. Clinical correlation is essential. Serum or plasma low density lipoprotein (LDL) cholesterol measurement (mass/volume)Ordered By: Zulma Dye on 06-01-2023 Cholesterol in LDL [Mass/Vol] 114 mg/dL 0-130 [facility] Serum or plasma urea nitroge n measurement (mass/volume)Ordered By: Zulma Dye on 06-01-2023 Urea nitrogen [Mass/Vol] 20 mg/dL 7-18 [facility] Thin prep Papanicolaou smear with manual screeningOrdered By: Zulma Dye on 06-01-2023 Thin prep Papanicolaou smear with manual screening 22 U/L 15-37 [facility] Thin prep Papanicolaou smear with manual screening 6 5-15 [facility] Culture, urineOrdered By: Dr Anabel Domínguez on 11-28-2022 Bacteria identified Cx Nom (U) Culture exhibits no growth. [facility] Culture, urineOrdered By: Dr Anabel Dye on 07-11-2022 Bacteria identified Cx Nom (U) Escherichia coli [facility] Absolute lymphocyte countOrd ered By: Dr. Dye on 05-04-2022 Lymphocytes Auto (Unsp spec) [#/Vol] 1.19 10*3/uL 0.83-4.51 [facility] Basophil percentageOrdered B y: Dr. Dye on 05-04-2022 Basophils/100 WBC (Bld) 0.7 % 0-1 [facility] Bilirubin [Mass/Vol] 1.70 mg/dL 0.20-1.00 [facility] Comment on above: For patients on eltr ombopag therapy, use of Dimension Trout TBIL is not recommended. Chloride [Moles/Vol] 106 mmol/L 98-107 [facility] Cholesterol [Mass/Vol] 217 mg/dL <200 [facility] Comment on above: <200 mg/dL Desirable 200-240 mg/dL Borderline >240 mg/dL High Risk Eosinophils/100 WBC (Bld) 2.0 % 0-5 [facility] Glucose [Mass/Vol] 86 mg/dL 74-106 [facility] Neutrophils (Bld) [#/Vol] 2.8 10*3/uL 2.0-7.7 [facility] Neutrophils/100 WBC (Bld) 61.8 % 47-70 [facility] Potassium [Moles/Vol] 4.2 mmol/L 3.5-5.1 [facility] Protein [Mass/Vol] 6.9 g/dL 6.4-8.2 [facility] Sodium [Moles/Vol] 139 mmol/L 136-145 [facility] Triglyceride [Mass/Vol] 110 mg/dL <199 [facility] Comment on above: The drugs N-Acetylcy steine and Metamizole may falsely depress this assay.Serum Triglycerides Reference Interval Normal <150 mg/dL Borderline high 150 - 199 mg/dL High 200 - 499 mg/dL Very High > or = 500 mg/dL WBC (Bld) [#/Vol] 4.5 10*3/uL 4.4-11.0 [facility] Blood erythrocytes count (nu mber/volume)Ordered By: Dr. Dye on 05-04-2022 RBC (Bld) [#/Vol] 4.42 10*6/uL 4.6-6.2 [facility] Blood hemoglobin measurement (mass/volume)Ordered By: Dr. Dye on 05-04-2022 Hemoglobin (Bld) [Mass/Vol] 13.6 g/dL 13.0-16.5 [facility] Blood lymphocytes/100 leukoc ytesOrdered By: Dr. Dye on 05-04-2022 Lymphocytes/100 WBC (Bld) 26.6 % 19-41 [facility] Blood monocytes/100 leukocyt esOrdered By: Dr. Dye on 05-04-2022 Monocytes/100 WBC (Bld) 8.7 % 0-10 [facility] Blood platelet mean volumeOr dered By: Dr. Dye on 05-04-2022 Platelet mean volume (Bld) [Entitic vol] 9.0 fL 6.2-12.0 [facility] Determination of erythrocyte mean corpuscular volume (MCV)Ordered By: Dr. Dye on 05-04-2022 MCV (RBC) [Entitic vol] 94.6 fL 80-94 [facility] Hematocrit Auto (Bld) [Volum e fraction]Ordered By: Dr. Dye on 05-04-2022 Hematocrit (Bld) [Volume fraction] 41.8 % 40-54 [facility] Laboratory - Chemistry and C hemistry - challengeOrdered By: Dr. Dye on 05-04-2022 ALP [Catalytic activity/Vol] 64 U/L 45-117 [facility] ALT [Catalytic activity/Vol] 19 U/L 16-61 [facility] CO2 [Moles/Vol] 29.0 mmol/L 21.0-32.0 [facility] Globulin (S) [Mass/Vol] 3.3 g/dL 2.2-4.2 [facility] Urea nitrogen/Creatinine [Mass ratio] 23.9 mg/mg 10-20 [facility] Laboratory - Hematology and Cell countsOrdered By: Dr. Dye on 05-04-2022 Erythrocyte distribution width (RBC) [Entitic vol] 45.2 fL 35.1-43.9 [facility] Erythrocyte distribution width (RBC) [Ratio] 13.1 % 11.6-14.6 [facility] Immature granulocytes/100 WBC (Bld) 0.200 % 0.0-0.9 [facility] Comment on above: IG% - Immature Granu locytes (promyelocytes, myelocytes and metamyelocytes) > 1% indicates that a LEFT SHIFT is Present. MCH (RBC) [Entitic mass] 30.8 pg 27.0-32.0 [facility] Nucleated RBC/100 WBC (Bld) [Ratio] 0 % 0-5 [facility] MCHC Auto (RBC) [Mass/Vol]Or dered By: Dr. Dye on 05-04-2022 MCHC (RBC) [Mass/Vol] 32.5 g/dL 32-36 [facility] No Panel InformationOrdered By: Dr. Dye on 05-04-2022 Estimated GFR (MDRD) Amer 105 mL/min >60 [facility] Comment on above: GFR Calc Estimated GFR (MDRD) Non-Af Amer 87 mL/min >60 [facility] Comment on above: Non- GFR Calc Platelets bldOrdered By: Dr. Dye on 05-04-2022 Platelets (Bld) [#/Vol] 182 10*3/uL 150-450 [facility] Serum or plasma albumin eileen urement (mass/volume)Ordered By: Dr. Dye on 05-04-2022 Albumin [Mass/Vol] 3.6 g/dL 3.2-5.0 [facility] Serum or plasma albumin/glob ulin mass ratioOrdered By: Dr. Dye on 05-04-2022 Albumin/Globulin [Mass ratio] 1.1 {ratio} 0.9-2.4 [facility] Serum or plasma calcium eileen urement (mass/volume)Ordered By: Dr. Dye on 05-04-2022 Calcium [Mass/Vol] 8.9 mg/dL 8.5-10.1 [facility] Serum or plasma cholesterol in HDL measurement (mass/volume)Ordered By: Dr. Dye on 05-04-2022 Cholesterol in HDL [Mass/Vol] 56 mg/dL >40 [facility] Comment on above: The drugs N-Acetylcy steine and Metamizole may falsely depress this assay. Reference Range HDL <40 mg/dL Low HDL Cholesterol HDL >or= 60 mg/dL High HDL Cholesterol Serum or plasma cholesterol in VLDL measurement (mass/volume)Ordered By: Dr. Dye on 05-04-2022 Cholesterol in VLDL [Mass/Vol] 22 mg/dL 5-40 [facility] Serum or plasma creatinine m easurement (mass/volume)Ordered By: Dr. Dye on 05-04-2022 Creatinine [Mass/Vol] 0.92 mg/dL 0.70-1.30 [facility] Comment on above: The validity of the calculated GFR & GFRAA in patients over 70 years has not been determined. Clinical correlation is essential. Serum or plasma low density lipoprotein (LDL) cholesterol measurement (mass/volume)Ordered By: Dr. Dye on 05-04-2022 Cholesterol in LDL [Mass/Vol] 139 mg/dL 0-130 [facility] Serum or plasma urea nitroge n measurement (mass/volume)Ordered By: Dr. Dye on 05-04-2022 Urea nitrogen [Mass/Vol] 22 mg/dL 7-18 [facility] Thin prep Papanicolaou smear with manual screeningOrdered By: Dr. Dye on 05-04-2022 Thin prep Papanicolaou smear with manual screening 17 U/L 15-37 [facility] Thin prep Papanicolaou smear with manual screening 4 5-15 [facility] ED Clinical Summaryon 2020 ED Clinical Summary [address] [address] ED Clinical Summary Person Information Name: Lashay [facility] Age: 65 Years : 1955 Sex: Male PCP: Arelis TORRES, Floridalma Alanis Marital Status: Phone: Race: White Ethnicity: Not or Language: Namibian Visit Reason: Finger injury - Minor; Laceration Acuity: 3 Enc Type: Emergency Med Service: Emergency Medicine Arrival: 01/06/2021 20:31:26 Discharge: 01/06/2021 21:48:00 LOS: 000 01:17 Checkin: 01/06/2021 20:31:26 Checkout: 01/06/2021 21:48:00 Dispo Type: Home or Self Care Address: [address] [place] [address] [place] [address] Provider Notes: History of Present Illness ? Patient presents with chief complaint of?injury of the left hand. ?He states that?he was trying to?fix?an extension cord?reel and his finger got stuck and subsequently injured. Review of Systems Constitutional: [No fevers, chills, sweats] Eye: [No recent visual problems] ENMT: [No ear pain, nasal congestion, sore throat] Respiratory: [No shortness of breath, cough] Cardiovascular: [No Chest pain, palpitations, syncope] Gastrointestinal: [No nausea, vomiting, diarrhea] Genitourinary: [No hematuria] skin: Laceration?of finger Physical Exam Lungs: [Clear to auscultation and percussion, non-labored respiration]. Heart: [Normal rate, regular rhythm, no murmur, gallop or edema]. Abdomen: [Soft, non-tender, non-distended, normal bowel sounds, no masses]. Mental Status:[Alert and oriented x3]. skin: Left hand, third digit,?distal phalanx,?small laceration and?skin avulsion. Diagnosis: 1:Finger laceration Problems No Problems Documented Smoking Status: Functional Status: Sensory Deficits: History of Falls: Mobility Assistance Prior to Admission: ADLs: Current Level of Assistance for Self-Care/Mobility: Cognitive Status: Allergies amoxicillin (Rash) Laboratory or Other Results This Visit (last charted value for your 01/06/2021 visit) No Laboratory or Other Results This Visit Measurements: Height: Weight: 71.2 kg Blood Pressure: /80 mmHg BMI: Procedures No Procedures Documented Immunizations tetanus/diphth/pertus s (Tdap) adult/adol (01/06/2021) Final Med List: Medications that have not changed Other Medications aspirin (aspirin 81 mg oral delayed release tablet) Oral (given by mouth) every day. Last Dose: ____ atorvastatin (atorvastatin 10 mg oral tablet) Oral (given by mouth) every day. Last Dose: ____ tamsulosin 0.4 Milligram Oral (given by mouth) every day. Last Dose: ____ Other Medications aspirin (aspirin 81 mg oral delayed release tablet) Oral (given by mouth) every day. atorvastatin (atorvastatin 10 mg oral tablet) Oral (given by mouth) every day. tamsulosin 0.4 Milligram Oral (given by mouth) every day. Care Team Members: Attending Physician: Husam TORRES, Neisha Consulting Physician: Referring Physician: Provider Role Assigned Unassigned Husam TORRES, Neisha ED Provider 01/06/2021 20:55:12 Follow up: With: Address: When: Floridalma Infante [address] [place] [address] [address] [place] [address] [phone] Business (1) , only if needed Patient Education Information: Laceration, Small or Superficial: Not Stitched [facility] Poison Help line: . [facility] Hotline: [place] Tobacco Quit Line: [place], [place]) [address]: [phone] [place], [place]) [address]: [phone] [facility] [address] [place], [place]: [phone] [facility] ED Note-Nursingon 01-06-2021 ED Note-Nursing Surgicel placed on finger laceration of left middle finger and tube gauze dressing applied Electronically signed by Nita Still 01/06/21 21:41 EDT Normal [facility] ED Note-Physicianon 01-07-20 21 ED Note-Physician Chief Complaint pt came to the ED complaining of getting his finger caught in a retractable extension cord that cut his left middle finger. History of Present Illness Patient presents with chief complaint of injury of the left hand. He states that he was trying to fix an extension cord reel and his finger got stuck and subsequently injured. Review of Systems Constitutional: [No fevers, chills, sweats] Eye: [No recent visual problems] ENMT: [No ear pain, nasal congestion, sore throat] Respiratory: [No shortness of breath, cough] Cardiovascular: [No Chest pain, palpitations, syncope] Gastrointestinal: [No nausea, vomiting, diarrhea] Genitourinary: [No hematuria] skin: Laceration of finger Physical Exam Lungs: [Clear to auscultation and percussion, non-labored respiration]. Heart: [Normal rate, regular rhythm, no murmur, gallop or edema]. Abdomen: [Soft, non-tender, non-distended, normal bowel sounds, no masses]. Mental Status:[Alert and oriented x3]. skin: Left hand, third digit, distal phalanx, small laceration and skin avulsion. Vitals & Measurements T: 36.7 ?C (Oral) HR: 67 (Monitored) RR: 16 BP: 146/82 SpO2: 99% HT: 180.5 cm WT: 71.2 kg (Dosing) Additional Vitals No qualifying data available. Procedure No qualifying data available. ASA Documentation Medical Decision Making Patient seen and evaluated for finger laceration and skin avulsion. Minor bleeding so we placed Surgicel, Tubegauz, tetanus shot given, reassurance and discharged home. Assessment/Plan 1. Finger laceration Orders: tetanus/diphth/pertus s (Tdap) adult/adol, 0.5 mL, IM, Injection, Once, First Dose: 01/06/21 21:14:00 EDT, Stop Date: 01/06/21 21:14:00 EDT, STAT, Dispense From Location: [id number] - ED Professional Level 2 93561 - ED Professional Level 3 Communication Order Refresh vitals and sections below: Problem List/Past Medical History Ongoing No qualifying data Historical No qualifying data Medications Inpatient Adacel (Tdap), 0.5 mL, IM, Once Home aspirin 81 mg oral delayed release tablet, Oral, Daily atorvastatin 10 mg oral tablet, Oral, Daily tamsulosin, 0.4 mg, Oral, Daily Allergies amoxicillin (Rash) Social History Tobacco Never (less than 100 in lifetime) Use:. Diagnostic Results XRay No qualifying data available (XRay) Computerized Tomagraphy No qualifying data available (CT) Ultrasound No qualifying data available (Ultrasound) Magnetic Resonance Imaging No qualifying data available (MRI) Electronically signed by Neisha Weiner MD 01/06/21 21:23 EDT Normal [facility] .eGFRon 04-03-2020 eGFR AA >60 Normal >=60 [facility] Comment on above: Order Comment: Order added by Discern rule Result Comment: Resu lt = 0-14.9 mL/min/1.73 m2 Kidney failure or Dialysis Result = 15-29 mL/min/1.73 m2 Severe decrease in GFR Result = 30-59 mL/min/1.73 m2 Moderate decrease in GFR Result >= 60 mL/min/1.73 m2 Normal or increased GFR Performed By: #### E GFR #### [address] [address] eGFR Non-AA >60 Normal >=60 [facility] Comment on above: Order Comment: Order added by Discern rule Result Comment: Resu lt = 0-14.9 mL/min/1.73 m2 Kidney failure or Dialysis Result = 15-29 mL/min/1.73 m2 Severe decrease in GFR Result = 30-59 mL/min/1.73 m2 Moderate decrease in GFR Result >= 60 mL/min/1.73 m2 Normal or increased GFR Chronic kidney disease is defined as either kidney damage or GFR < 60 mL/min/1.73 m2 for >= 3 months. Kidney damage is defined as pathologic abnormalities or markers of damage including abnormalities in blood or urine tests or imaging studies. This GFR is NOT used for medication dosing. Performed By: #### E GFR #### [address] [address] Dena 04-03-2020 ALT [Catalytic activity/Vol] 20 U/L Normal 7-52 [facility] Comment on above: Performed By: #### S GPT #### [address] [address] Andrew 04-03-2020 AST [Catalytic activity/Vol] 26 U/L Normal 13-39 [facility] Comment on above: Performed By: #### S GOT #### [address] [address] Basic Metabolic Profileon Anion gap [Moles/Vol] 10 mmol/L Normal 7-17 [facility] Comment on above: Performed By: #### C [id number] #### [place] [address] Calcium [Mass/Vol] 9.3 mg/dL Normal 8.6-10.3 [facility] Comment on above: Performed By: #### C [id number] #### [place] [address] Chloride 106 IU/L Normal 98-107 [facility] Comment on above: Performed By: #### C [id number] #### [address] [address] CO2 [Moles/Vol] 29 mmol/L Normal 21-31 [facility] Comment on above: Performed By: #### C [id number] #### [address] [address] Creatinine [Mass/Vol] 0.8 mg/dL Normal 0.7-1.3 [facility] Comment on above: Performed By: #### C [id number] #### [address] [address] Glucose [Mass/Vol] 93 mg/dL Normal 70-99 [facility] Comment on above: Performed By: #### C [id number] #### [address] [address] Potassium [Moles/Vol] 4.2 mmol/L Normal 3.4-4.8 [facility] Comment on above: Performed By: #### C [id number] #### [address] [address] Sodium [Moles/Vol] 141 mmol/L Normal 136-145 [facility] Comment on above: Performed By: #### C [id number] #### [address] [address] Urea nitrogen [Mass/Vol] 22 mg/dL Normal 7-25 [facility] Comment on above: Performed By: #### C [id number] #### [address] [address] Urea nitrogen/Creatinine [Mass ratio] 27.5 mg/mg High 10.0-20.0 [facility] Comment on above: Performed By: #### C [id number] #### [address] [address] Lipid Panelon 04-03-2020 Cholesterol in LDL [Mass/Vol] 115 mg/dL High 0-99 [facility] Comment on above: Result Comment: The equation being used in this calculation is LDL = (Chol - HDL) - (Trig / 5) The optimal value of LDL for individual patients may vary. The patient's history of Artherosclerosis and other cardiac risk factors should be considered. Performed By: #### L SOLIMAN #### [address] [address] Cardiac Risk 3 Normal [facility] Comment on above: Result Comment: Men Women 1/2 Average 3.43 3.27 Average 4.97 4.44 2x Average 9.55 7.05 3x Average 23.99 11.04 Performed By: #### L SOLIMAN #### [address] [address] Cholesterol [Mass/Vol] 194 mg/dL Normal 25-200 [facility] Comment on above: Result Comment: 0 - 17 years of age: Desirable 0-170 Borderline High 170-199 High >=200 18 years and older: Acceptable <200 Borderline High 200-239 High >=240 Performed By: #### L SOLIMAN #### [address] [address] Cholesterol in HDL [Mass/Vol] 62.2 mg/dL Normal >=40.0 [facility] Comment on above: Performed By: #### L SOLIMAN #### [facility] [address] [place] [address] Cholesterol in VLDL [Mass/Vol] 16 mg/dL Normal 8-39 [facility] Comment on above: Performed By: #### L SOLIMAN #### [address] [address] Triglyceride [Mass/Vol] 82 mg/dL Normal 0-149 [facility] Comment on above: Result Comment: 0 - 17 years of age: Trig 90 - 129 Borderline High Trig => 130 High 18 years and older: Trig 150 - 199 Borderline High Trig 200 - 499 High Trig =>500 Very High Performed By: #### L SOLIMAN #### [address] [address] PSA Screenon 04-03-2020 Total PSA 0.86 ng/mL Normal 0.00-4.00 [facility] Comment on above: Performed By: #### P SAS #### [facility] [address] [place] [address] URINE CULTUREon 09-05-2017 Urine culture, bacteria MICROBIOLOGY REP ORT [facility], [address] [place] [address], [id number]: LASHAY BENNETT : OP - - : 1955 AGE: 62 SEX: MADM: 09/05/17 Att. Physician: Gia NELSON Id: [id number] Req. Physician: Teresa NELSON: urine, clean catchSite:Collected: 09/05/17 11:00Current Antibiotics: not statedAntibiotics comment: C O M M E N T S -Specify (ex-cath, midstream, cysto, etc)?->midstream STATUS OF ORDERED AND REPORTED TESTSURINE CULTURE FINAL 09/07/17URINE CULTURE FINAL 09/07/17 07: No growth-zydxngeplte30/ 14/18 No growth Normal [facility] US RENAL COMPLETEon 09-03-19 US RENAL COMPLETE BILATERAL RENAL ULTRASOUND:CLINICAL INFORMATION: Urinary tract infection with hematuria, site unspecified, Urinary tract infection with hematuria, site unspecified, Solitary kidney. History of Wilms tumor with right nephrectomy at age 1.COMPARISON: No comparison available.TECHNIQUE: Multiple sonographic images of both kidneys were obtained. Images of the urinary bladder were also obtained.FINDINGS:LEF T KIDNEY - 15 x 6.2 x 6.7 cmResistive Index - 0.73Cortical Thickness - 1.3 cmURINARY BLADDERPre-Void - 278 mLPost-Void - 112 mL KIDNEYS: Right kidney is surgically absent. Compensatory hypertrophy of the left kidney which is normal in contour. Elevated resistive index left side, consistent with medical renal disease. MASS/CYST: Multiple cysts in the left kidney that are all benign in appearance. Note that the largest cyst is located in the upper pole, 3.3 cm, and has a small septation (Bosniak 2). Note also that there are several benign-appearing cysts in the liver. HYDRONEPHROSIS: There is no hydronephrosis. CALCULI: Small nonobstructing calculus lower pole left kidney. BLADDER: The urinary bladder is unremarkable.. IMPRESSION: Multiple liver cysts. Multiple left renal cysts. Solitary left kidney. No hydronephrosis.This report has been created using voice recognition software. It may contain minor errors which are inherent in voice recognition technology.Final report electronically signed by Dr. Antonio Sandoval on 09/02/2017 8:36 AMInterpreted by:BARBER Yiigned by:Antonio Sandoval MD09/02/17inal result Normal [facility] OFFICE URINALYSIS W/O MICROo n 08-26-2017 Bilirubin (total) Negative Normal [facility] BLOOD Negative Normal NEGATIVE [facility] Glucose mass conc Negative Normal NEGATIVE [facility] pH of blood 5.50 [pH] Normal 5.0 - 9.0 [facility] Protein Negative Normal NEGATIVE [facility] Urine, character Clear Normal CLR-SL.JERRY [facility] Urine, color Yellow Normal YELLOW-STR [facility] Urine, ketones presence Negative Normal NEGATIVE [facility] Urine, nitrite presence Negative Normal NEGATIVE S [facility] Urine, specific gravity 1.025 Normal 1.002-1.03 [facility] Urine, urobilinogen 0.20 {Jimbo'U}/dL Normal 0.0 - 1 .0 [facility] WBC (Leukocytes) Negative Normal NEGATIVE [facility] URINE CULTUREon 08-18-2017 Urine culture, bacteria SPECIMEN NUMBER: [id number] [facility] Comment on above: Result Comment: URIN E CULTURE REPORT STATUS: FINAL SITE/TYPE: CLEAN CATCH/MIDSTREAM CURRENT ANTIBIOTIC(S):NOT STATED CULTURE RESULT(S): 100,000/ML ESCHERICHIA COLI E.COLI AMP/CLAV ACID S <=2 AMPICILLIN S 8 AMP/SULBACTAM S 4 CEFAZOLIN S <=4 CIPROFLOXACIN S <=0.25 GENTAMICIN S <=1 NITROFURANTOIN S <=16 PIP/TAZOBACTAM S <=4 TRIMETH/SULFA S <=20 S=Sensitive,I=Intermediate,R=Resistant SHERLEY values in mcg/mL The antimicrobial agents listed above are as per the current guidelines established by the Clinical and Laboratory Standards [place]. EFFECTIVE 08/08/2017 CLINICAL CHEMISTRY PLATFORM CHANGES IN MAIN LABORATORY ARE ASSOCIATED WITH REFERENCE RANGE CHANGES FOR A NUMBER OF ANALYTES. PLEASE REVIEW REFERENCE INTERVALS CAREFULLY *[facility]. [address] [place] [id number] Director: Jhoan Hughes M.D.CLIA No. [id number] CAP Accreditation No. [id number] URINE CULTUREon 08-01-2017 Urine culture, bacteria SPECIMEN NUMBER: [id number] [facility] Comment on above: Result Comment: URIN E CULTURE REPORT STATUS: FINAL SITE/TYPE: CLEAN CATCH/MIDSTREAM CULTURE RESULT(S): 100,000/ML ESCHERICHIA COLI E.COLI AMP/CLAV ACID S <=2 AMPICILLIN S <=2 AMP/SULBACTAM S <=2 CEFAZOLIN S <=4 CEFEPIME S <=1 CEFTAZIDIME S <=1 CEFTRIAXONE S <=1 CIPROFLOXACIN S <=0.25 ERTAPENEM S <=0.5 GENTAMICIN S <=1 LEVOFLOXACIN S <=0.12 IMIPENEM S <=0.25 NITROFURANTOIN S <=16 PIP/TAZOBACTAM S <=4 TOBRAMYCIN S <=1 TRIMETH/SULFA S <=20 S=Sensitive,I=Intermediate,R=Resistant SHERLEY values in mcg/mL The antimicrobial agents listed above are as per the current guidelines established by the Clinical and Laboratory Standards [place].[facility]. [address] [place] [id number] Director: Jhoan Hughes M.D.CLIA No. [id number] CAP Accreditation No. [id number] Vital Signs Date Time Vital Sign Value Performing Clinician Lisa ochoa 11-09-2024 08:53-0400 Body height 180.[address] Zulma Dye MD Work Phone: [facility] 11-09-2024 08:53-0400 Body mass index (BMI) [Ratio] 22.6 kg/m2 Dr. Zulma Dye MD Work Phone: [facility] 11-09-2024 08:53-0400 Body weight 73.[address] Zulma Dye MD Work Phone: [facility] 11-09-2024 08:53-0400 Diastolic blood pressure 68 mm[Hg] Dr. Zulma Dye MD Work Phone: [facility] 11-09-2024 08:53-0400 Heart rate 54 /min Dr. Zulma Dye MD Work Phone: [facility] 11-09-2024 08:53-0400 Respiratory rate 16 /min Dr. Zulma Dye MD Work Phone: [facility] 11-09-2024 08:53-0400 Systolic blood pressure 114 mm[Hg] Dr. Zulma Dye MD Work Phone: [facility] Encounters Encounter Date Encounter Type Care Provider Facility Start: 12-24-2024 ambulatory Zulma Mistephanie Facility: [facility] Start: 12-21-2024 ambulatory Zulma Hardik Facility: [facility] Start: 11-09-2024 End: 11-09-[address] Joe Avila MD -[facility] Work Phone: Start: 11-09-2024 End: 11-09-[address] Zulma Dye MD Work Phone: [facility] Work Phone: Start: 08-17-2024 End: 08-17-[address] Zulma Dye MD Work Phone: [facility] Work Phone: Start: 08-17-2024 End: 08-17-[address] Zulma Dye MD -[facility] Start: 08-17-2024 End: 08-17-2024 ambulatory Zulma Rachelcaryn Facility:[facility] Start: 07-16-2024 Encounter for genera l adult medical examination without abnormal findings Zulma Dye [facility] Start: 06-12-2024 End: 06-12-[address] Zulma Dye MD -Laboratory Work Phone: Start: 06-12-2024 End: 06-12-2024 ambulatory Zulma Dye Facility:[facility] Start: 06-01-2023 End: 06-01-2023 ambulatory [facility] Work Phone: Start: 06-01-2023 End: 06-01-2023 Patient encounter procedure [facility] Work Phone: Start: 11-26-2022 End: 11-26-2022 ambulatory [facility] Work Phone: Start: 11-26-2022 End: 11-26-2022 Patient encounter procedure [facility]Laboratory, Adriana Joyceamandeep [facility] Start: 07-09-2022 End: 07-09-2022 ambulatory [facility] Work Phone: Start: 07-09-2022 End: 07-09-2022 Patient encounter procedure [facility]Laboratory, Specimen Start: 05-04-2022 End: 05-04-2022 ambulatory [facility] Work Phone: Start: 05-04-2022 End: 05-04-2022 Patient encounter procedure [facility] Start: 11-03-2021 End: 11-03-2021 Patient encounter procedure [facility]Outpatient Breast Imaging Start: 01-06-2021 End: 01-06-2021 Emergency department patient visit MD FLORIDALMA INFANTE Facility:[facility] Start: 04-03-2020 End: 04-04-2020 ambulatory MD FLORIDALMA INFANTE Facility:[facility] Start: 09-05-2017 End: 09-06-2017 Ambulatory MAIRA NELSON [facility] Start: 09-01-2017 End: 09-02-2017 Ambulatory MAIRA NELSON [facility] Start: 08-26-2017 End: 08-26-2017 Unknown MAIRA NELSON [facility] Procedures Date Procedure Procedure Detail Performing Clinician Start: 08-17-2024 Measurement of renal function Dr. Zulma Dye MD Work Phone: Comment on above: GFR Calc Start: 11-03-2021 Ultrasonography of breast Start: 11-03-2021 Bilateral mammography Start: 11-03-2021 Ultrasonography of breast Start: 09-05-2017 URINE CULTURE MAIRA NELSON Start: 09-01-2017 Us retroperitoneal r eal time w/image complete MAIRA NELSON Start: 08-26-2017 POCT URINALYSIS DIPS TICK W/O MICROSCOPE (AUTO) MAIRA NELSON Urine culture Urine culture Plan of Treatment Date Care Activity Detail Author Start: 11-09-2024 Evaluation of diagnostic study results 12 Lead EKG performed by [facility] Payers Date Payer Category Payer Medicare [id number] 2024 Self-pay [id number] 2024 Unknown [id number] 2020 Medicare 2020 Unknown 1955 Unknown [id number] [id number]. [id number] 1955 Unknown [id number] 2.16.8 [id number] Unknown [id number] 2.16.8 [id number] Unknown [id number] 2.16.8 [id number] Unknown [id number] 2.16.8 [id number] Unknown [id number] 2.16.8 [id number] Unknown [id number] 2.16.8 [id number] Social History Date Type Detail Facility Start: 06-12-2021 End: 06-12-2021 Tobacco smoking status NHIS Unknown if ever smoked [facility] Start: 1955 Sex Assigned At Male [facility] Start: 06-12-2021 End: 06-12-2021 Tobacco smoking status NHIS Never smoked tobacco (finding) [facility] Start: 08-30-2024 Sex Male (finding) [facility] Evaluation note Note Date & Type Note Facility Evaluation note No assessment information availa ble [facility] Work Phone: Reason for referral (narrative) Note Date & Type Note Facility Reason for referral (narrative) No reason for referral information available [facility] Work Phone: Summary Purpose Family History No Family History Records Found Relationship Condition Age at Onset Recorded Date/T maria luisa father Hypertension Unknown mother Malignant neoplasm Unknown Advance Directives No Advanced Directives Records Found Advance Directive Response Recorded Date/ Time Living Will Yes June 12 12:10pm Power of Data Assistant Yes June 12, 2021 12:10pm Advance Directive Response Recorded Date/ Time Living Will Yes June 12 11:10am Power of Data Assistant Yes June 12, 2021 11:10am Chief Complaint and Reason for Visit Chief Complaint LEFT BREAST PAIN Chief Complaint Admit Date PVC (MIEDEL) November 09, 2024 8:50a m Additional Source Comments (unrecognized sect ion and content) No Status Records FoundNo Status Records FoundNo Status Records FoundNo Status Records Found INFORMATION SOURCE (unrecogn ized section and content) DATE CREATED AUTHOR 12/16/2017 [facility] DATE CREATED AUTHOR AUTHOR'S ORGANIZ ATION 12/16/2017 [facility] DATE CREATED AUTHOR AUTHOR'S ORGANIZ ATION 01/10/2021 [facility] DATE CREATED AUTHOR AUTHOR'S ORGANIZ ATION 12/17/2024 [facility] Goals (unrecognized section and content) Goals may be documented in a n alternate sectionGoals may be documented in an alternate sectionGoals may be documented in an alternate sectionGoals may be documented in an alternate sectionGoals may be documented in an alternate sectionGoals may be documented in an alternate sectionGoals may be documented in an alternate section Care Teams (unrecognized sec tion and content) Team Status: Active Member Role Status Dates Dr. Zulma Dye MD Primary Care Provider Active Team Status: Inactive Member Role Status Dates Dr. Zulma Dye MD Primary Care Prov ider, Attending Provider, Referring Provider Active Team Status: Inactive Member Role Status Dates Dr. uZlma Dye MD Primary Care Provider, Attendin g Provider Active Team Status: Active Member Role Status Dates Dr. Ramírez Domínguez DO Primary Care Provider Active Team Status: Inactive Member Role Status Dates Dr. Ramírez Domínguez DO Primary Care Prov ider, Attending Provider, Referring Provider Active Team Status: Inactive Member Role Status Dates Dr. Zulma Dye MD Primary Care Provider Active Start: June 12, 2024 End: June 12, 2024 Dr. Zulma Dye MD Attending Provider Active Start: June 12, 2024 End: June 12, 2024 Dr. Zulma Dye MD Referring Provider Active Start: June 12, 2024 End: June 12, 2024 Team Status: Inactive Member Role Status Dates Dr. Zulma Dye MD Primary Care Provider Active Start: August 17, 2024 End: August 17, 2024 Dr. Zulma Dye MD Attending Provider Active Start: August 17, 2024 End: August 17, 2024 Team Status: Inactive Member Role Status Dates Dr. Zulma Dye MD Primary Care Provider Active Start: November 09, 2024 End: November 09, 2024 Dr. Zulma Dye MD Referring Provider Active Start: November 09, 2024 End: November 09, 2024 Dr. Joe Avila MD Attending Provider Active S tart: November 09, 2024 End: November 09, 2024 FOR RECORDS PERTAINING TO PATIENTS WHO ARE OR HAVE BEEN ENROLLED IN A CHEMICAL DEPENDENCY/SUBSTANCEABUSE PROGRAM, SOME INFORMATION MAY BE OMITTED. This clinical summary was aggregated from multiple sources. Caution should be exercised in using it in the provision of clinical care. This summary normalizes information from multiple sources, and as a consequence, information in this document may materially change the coding, format and clinical context of patient data. In addition, data may be omitted in some cases. CLINICAL DECISIONS SHOULD BE BASED ON THE PRIMARY CLINICAL RECORDS. [facility] Center[facility]. provides no warranty or guarantee of the accuracy or completeness of information in this document.
== END | disposition home or self-care (01) ==
PROVIDERS: PCP Family Medicine; Referring Provider Internal Medicine Cardiovascular Disease; Visit Provider Internal Medicine Cardiovascular Disease
DX: I49.3 Ventricular premature depolarization (principal)
CPT/HCPCS: 93225; 93226; 93306

== ENCOUNTER 2025-03-03 01:47 | Emergency (ER) | payer MEDICARE, BC, SELFPAY ==
[2025-03-03 01:47] VITALS: BP 156/76; PULSE 86; RESP 18; TEMP 37.2; O2SAT 99; BMI 23.1
--- OUTSIDE RECORDS SUMMARY | 2025-03-03 02:11 | XMS RPT_ITS | CCD ---
Author Organization [facility] Care Team Providers Care Provider Relations Coordinator Name Role Phone MAIRA NELSON Unavailable Unavailable FLORIDALMA INFANTE Unavailable Unavailable FLORIDALMA [...] Dr. Zulma Holder MD Primary Care Provider Dr. Zulma Dye MD Attending Provider Dr. Zulma Dye MD Referring Provider Dr. Zulma Dye MD Primary Care Provider Dr. Zulma Dye MD Attending Provider Dr. Zulma Dye MD Referring Provider Dr. Joe Avila MD Attending Provider Dr. Zulma Dye MD Primary Care Provider Dr. Joe Avila MD Referring Provider Zulma Dye Primary Care Unavailable Austin, Joe Attending Unavailable Austin, Joe Referring Unavailable Zulma Dye Primary Care Unavailable [place], Joe Attending Unavailable [place], [place] Referring Unavailable [place], [place] Attending Unavailable Zulma Dye Primary Care Unavailable Zulma Dye Referring Unavailable Zulma Dye Primary Care Unavailable [place], [place] Attending Unavailable Zulma Dye Primary Care Unavailable Zulma Dye Attending Unavailable Zulma Dye Referring Unavailable Zulma Dye Primary Care Unavailable Zulma Dye Attending Unavailable Allergies Allergy Classification Reported Allergen(s) Allergy Type Date of Onset Reaction(s) Facility Penicillins (antibiotic) (1 source) Amoxicillin; Translations: [amoxicillin] Drug Allergy [facility] Repository (8 sources) Amoxicillin Drug Allergy 06-16-2021 Rash [facility] (1 source) Amoxicillin Drug Allergy 11-09-2024 [facility] Repository Medications Current Medications Medication Drug Class(es) Dates Sig (Normalized) Sig (Original) Antiarthritic Combination No.2 (Glucosamine-Chondro itin) 900 mg tablet (8 sources) Start: 06-01-2021 take 1 tablet by [...] aspirin 81 mg delayed release oral tablet (8 sources) Platelet Aggregation Inhibitor, Nonsteroidal Anti-inflammatory Drug Start: 06-01-2021 take 1 tablet by mouth once daily Aspirin 81 mg tablet,delayed release (DR/EC) Active 81 mg PO DAILY June 01, 2021 1:00am atorvastatin 10 mg oral tablet (8 sources) HMG-CoA Reductase Inhibitor Start: 06-01-2021 take 1 tablet by mouth every other day Atorvastatin 10 mg tablet Active 10 mg PO EVERY OTHER DAY June 01, 2021 1:00am cholecalciferol 0.025 mg oral capsule (8 sources) Vitamin D Start: 06-01-2021 take 1 capsule by mouth once daily Cholecalciferol (Vitamin D3) 25 mcg (1,000 unit) capsule Active 25 ug PO DAILY June 01, 2021 1:00am 24 hr metoprolol succinate 25 mg extended release oral tablet (1 source) beta-Adrenergic Marine Start: 11-12-2024 take 1 tablet by mouth once daily Metoprolol Succinate 25 mg tablet extended release 24 hr Active 25 mg PO daily November 12, 2024 12:00am Multivitamin preparation (5 sources) Start: 06-01-2021 take [...] 2021 12:00am niacin 500 mg oral tablet (10 sources) Nicotinic Acid Start: 10-15-2024 take 1 tablet by mouth once daily Niacin 500 mg tablet Active 500 mg PO daily October 15, 2024 3:48pm Start: 06-01-2021 End: 10-15-2024 take 1 tablet by mouth twice daily Niacin 500 mg tablet Discontinued 500 mg PO TWICE A DAY June 01, 2021 1:00am October 15, 2024 3:49pm tamsulosin hydrochloride 0.4 mg oral capsule (8 sources) alpha-Adrenergic Marine Start: 06-01-2021 Tamsu losin 0.4 mg capsule Active 0.4 NMA PO AT BEDTIME June 01, 2021 1:00am Start: 06-01-2021 take 0.4 capsule by mouth at bedtime Tamsulosin Active 0.4 CAP PO AT BEDTIME June 01, 2021 12:00am Completed/Discontinued Medications Medication Drug Class(es) Dates Sig (Normalized) Sig (Original) atenolol 25 mg oral tablet (2 sources) beta-Adrenergic Marine Start: 10-15-2024 End: 11-12-2024 take 1 tablet by mouth once daily Atenolol 25 mg tablet Discontinued 25 mg PO daily October 15, 2024 12:00am November 12, 2024 10:32am Multivitamin tablet (3 sources) Start: 06-01-2021 End: 11-09-2024 Multivitamin tablet Discontinued 1 {tbl} PO DAILY June 01, 2021 1:00am November 09, 2024 8:57am Start: 06-01-2021 Multivitamin t ablet Active 1 {tbl} PO DAILY June 01, 2021 12:00am omeprazole 40 mg delayed release oral capsule (8 sources) Proton Pump Inhibitor Start: 06-16-2021 End: 11-09-2024 take 1 capsule by mouth once daily Omeprazole 40 mg capsule,delayed release(DR/EC) Discontinued 40 mg PO DAILY 90 0 June 16, 2021 1:00am November 09, 2024 8:58am Problems Problem Classification Problem Date Documented Da te Episodic/Chronic Cardiac dysrhythmias (4 sources) Multiple premature ventricular complexes; Translations: [Ventricular premature depolarization] Onset: 12-14-2024 11-09-2024 Chronic Disorders of lipid metabolism (9 sources) Hypercholesterolem ia; Translations: [Pure hypercholesterolem ia, unspecified] Onset: 11-09-2024 06-01-2021 Chronic Hyperplasia of prostate (8 sources) Benign prostatic hyperplasia; Translations: [Benign prostatic hyperplasia without lower urinary tract symptoms] 06-01-2021 Chronic Malignant neoplasm without specification of site (2 sources) Malignant neoplastic disease; Translations: [Malignant (primary) neoplasm, unspecified] 10-15-2024 Chronic Comment on above: SKIN AND KIDNEY Other circulatory disease (2 sources) History of cardiac arrhythmia; Translations: [Personal history of other diseases of the circulatory system] 10-15-2024 Episodic Comment on above: PVC'S SINCE AGE 39 Other circulatory disease (1 source) Personal history of other diseases of the circulatory system; Translations: [Personal history of other diseases of the circulatory system] Onset: 11-09-2024 Episodic Other gastrointestinal disorders (8 sources) Stool DNA-based colorectal cancer screening positive; Translations: [Other fecal abnormalities] 06-01-2021 Episodic Other male genital disorders (2 sources) Disorder of prostate; Translations: [Disorder of prostate, unspecified] 10-15-2024 Episodic Comment on above: MILD ENLARGED PROSTA TE/ON FLOMAX Residual codes; unclassified (2 sources) History of nephrectomy; Translations: [Acquired absence of kidney] 10-15-2024 Episodic Comment on above: right/DUE TO WILL TU MOR CHILD /HAD RADIATION Residual codes; unclassified (2 sources) History of clinical finding in subject; Translations: [...] Test Name Value Interpretation Reference Range Facility Echocardiogram study reportO rdered By: Joe Avila on 12-25-2024 Study report [facility] [address] [place] [address] Echo Complete 12/21/24 0856 MR#: [id number] Acct: [id number] Name: LASHAY BENNETT Rep #:[id number] : 1955 69 From: Joe Garcia Attending Dr: Dr. Joe Avila MD S tatus: REG CLI Ordering Dr: Joe Avila MD Date: Location: [facility] Sex: M C Admitted: Reason For Study Reason For Study: ARRYTHMIA Procedure This was a 2D Doppler, Color Flow transthoracic echocardiogram. Exam performed in department. Left Ventricle Normal LV size. The left ventricular ejection fraction is 55 %. Stage 1 diastolic dysfunction. No regional wall motion abnormalities noted. Right Ventricle Normal RV size. Normal systolic function. Atria Normal left atrium. Normal right atrium. Mitral Valve Normal mitral valve. Tricuspid Valve Normal tricuspid valve. Mild (1+) tricuspid valve insufficiency. Pulmonary artery systolic pressure is 30 mmHg. Aortic Valve Trisinus/trileaflet aortic valve. Pulmonic Valve Normal pulmonic valve. Great Vessels Normal aortic root. The pulmonary artery is normal size. Inferior vena cava collapse with sniff. Pericardium/Pleural No pericardial effusion. MMode/2D Measurements & Calculations LVIDd: 5.2 cm IVSd: 1.0 cm Ao root diam: 3.5 cm LVIDs: 3.8 cm LVPWd: 0.99 cm RVDd: 4.1 cm FS: 26.8 % LAV(MOD-bp): 34.0 ml LVAd ap4: 30.9 cm2 SV(MOD-sp4): 50.3 ml LAV(MOD-bp) Indexed: 17.7 ml/m2 LVLd ap4: 8.6 cm SI(MOD-sp4): 26.2 ml/m2 LAV(MOD-sp2): 31.9 ml EDV(MOD-sp4): 94.2 ml LAV(MOD-sp4): 35.9 ml EDV(sp4-el): 94.0 ml LVAs ap4: 19.3 cm2 LVLs ap4: 7.3 cm ESV(MOD-sp4): 43.9 ml ESV(sp4-el): 43.7 ml EF(MOD-sp4): 53.4 % EF(sp4-el): 53.6 % SV(sp4-el): 50.3 ml LA A4 area: 15.1 cm2 LA dimension(2D): 3.8 cm RA A4 area: 14.9 cm2 TAPSE: 2.5 cm Time Measurements MV dec time: 0.16 sec Doppler Measurements & Calculations MV E max brown: 46.8 cm/sec Lat Peak E' Brown: 6.1 cm/sec Med Peak E' Brown: 7.6 cm/sec MV A max brown: 58.4 cm/sec E/E' lat: 7.7 E/E' med: 6.2 MV E/A: 0.80 Ao V2 max: 91.6 cm/sec LV V1 max: 69.5 cm/sec PA V2 max: 83.7 cm/sec Ao max P.4 mmHg LV V1 max P.9 mmHg TR max brown: 251.8 cm/sec TR max P.4 mmHg ECHO/Echo Complete Interpretation Summary Normal LV size. The left ventricular ejection fraction is 55 %. No regional wall motion abnormalities noted. Stage 1 diastolic dysfunction. Pulmonary artery systolic pressure is 30 mmHg. Structurally normal valves. Ordering Physician: Joe Avila Referring Physician: ZULMA DYE Performed By: Sejal Simpson RDCS 12/25/24 1039 Date _ Joe Avila MD CC: Dr. Joe Avila MD; Dr. Zulma Dye MD ~ Date Dictated: 12/21/24855 Date Transcribed: 12/25/24 103 Dresser Tender: Signed [facility] Work Phone: Echo Completeon 12-21-2024 Echo Complete [facility] [address] [place] [address] Echo Complete 12/21/2456 MR#: [id number] Acct: [id number] Name: LASHAY BENNETT Rep #: [id number] : 1955 69 From: Joe Avila MD Attending Dr: Dr. Joe Avila MD Status: RGECIA MANN Ordering Dr: Joe Avila MD Date: 12/21/24 Location: [facility] Sex: M C Admitted: Reason For Study Reason For Study: ARRYTHMIA Procedure This was a 2D Doppler, Color Flow transthoracic echocardiogram. Exam performed in department. Left Ventricle Normal LV size. The left ventricular ejection fraction is 55 %. Stage 1 diastolic dysfunction. No regional wall motion abnormalities noted. Right Ventricle Normal RV size. Normal systolic function. Atria Normal left atrium. Normal right atrium. Mitral Valve Normal mitral valve. Tricuspid Valve Normal tricuspid valve. Mild (1+) tricuspid valve insufficiency. Pulmonary artery systolic pressure is 30 mmHg. Aortic Valve Trisinus/trileaflet aortic valve. Pulmonic Valve Normal pulmonic valve. Great Vessels Normal aortic root. The pulmonary artery is normal size. Inferior vena cava collapse with sniff. Pericardium/Pleural No pericardial effusion. MMode/2D Measurements Calculations LVIDd: 5.2 cm IVSd: 1.0 cm Ao root diam: 3.5 cm LVIDs: 3.8 cm LVPWd: 0.99 cm RVDd: 4.1 cm FS: 26.8 % LAV(MOD-bp): 34.0 ml LVAd ap4: 30.9 cm2 SV(MOD-sp4): 50.3 ml LAV(MOD-bp) Indexed: 17.7 ml/m2 LVLd ap4: 8.6 cm SI(MOD-sp4): 26.2 ml/m2 LAV(MOD-sp2): 31.9 ml EDV(MOD-sp4): 94.2 ml LAV(MOD-sp4): 35.9 ml EDV(sp4-el): 94.0 ml LVAs ap4: 19.3 cm2 LVLs ap4: 7.3 cm ESV(MOD-sp4): 43.9 ml ESV(sp4-el): 43.7 ml EF(MOD-sp4): 53.4 % EF(sp4-el): 53.6 % SV(sp4-el): 50.3 ml LA A4 area: 15.1 cm2 LA dimension(2D): 3.8 cm RA A4 area: 14.9 cm2 TAPSE: 2.5 cm Time Measurements MV dec time: 0.16 sec Doppler Measurements Calculations MV E max brown: 46.8 cm/sec Lat Peak E' Brown: 6.1 cm/sec Med Peak E' Brown: 7.6 cm/sec MV A max brown: 58.4 cm/sec E/E' lat: 7.7 E/E' med: 6.2 MV E/A: 0.80 Ao V2 max: 91.6 cm/sec LV V1 max: 69.5 cm/sec PA V2 max: 83.7 cm/sec Ao max P.4 mmHg LV V1 max P.9 mmHg TR max brown: 251.8 cm/sec TR max P.4 mmHg ECHO/Echo Complete Interpretation Summary Normal LV size. The left ventricular ejection fraction is 55 %. No regional wall motion abnormalities noted. Stage 1 diastolic dysfunction. Pulmonary artery systolic pressure is 30 mmHg. Structurally normal valves. Ordering Physician: Joe Avila Referring Physician: ZULMA DYE Performed By: Sejal Simpson, CHIP 12/25/24 1039 Date Joe Avila MD CC: Dr. Joe Avila MD; Dr. Zulma Dye MD Date Dictated: 12/21/24 0856 Date Transcribed: 12/25/24 103 Dresser Tender: Signed Normal [facility] 12 Lead EKG performed by [facility] on 11-09-2024 12 Lead EKG performed by [address] [address] 12 Lead EKG performed by [facility] 11/09/24 0853 MR#: [id number] Acct: [id number] Name: LASHAY BENNETT Rep #: [id number] : 1955 69 From: Joe Avila MD Attending Dr: Dr. Joe Avila MD Status: DEP A MB Ordering Dr: Joe Avila MD Date: 11/09/24 Location: [facility] Sex: M C Admitted: [facility]/12 Lead EKG performed by [facility] ECG Report Interpretation -----Sinus Bradycardia -Poor R-wave progression -nonspecific -consider old anterior infarct. BORDERLINEElectronica lly signed on 11/14/2024 at 09:35 by Joe Avilawood Software Version [id number] 11/14/24 0937 Date Joe Avila MD CC: Dr. Zulma Dye MD Date Dictated: 11/09/24852 Date Transcribed: 11/09/24852 Dresser Tender: [place] Signed Normal [facility] Cardiology Visit Reporton Cardiology Visit Report [facility] [address] [place] [address] OFFICE VISIT Date of Service: 11/09/24 MR#: [id number] Acct: [id number] Name: LASHAY BENNETT Rep #: [id number] : 1955 Provider: Dr. 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 Normal [facility] Absolute lymphocyte countOrd ered By: Zulma Dye on 08-17-2024 Lymphocytes Auto (Unsp spec) [#/Vol] 0.77 10*3/uL Low 0.83-4.51 [facility] Absolute neutrophil countOrd ered By: Zulma Dye on 08-17-2024 Neutrophils (Bld) [#/Vol] 4.2 10*3/uL 2.0-7.7 [facility] Albumin to globulin ratioOrd ered By: Zulma Dye on 08-17-2024 Albumin/Globulin [Mass ratio] 1.1 {ratio} 0.9-2.4 [facility] Automated lymphocyte count a s percentage of total leukocytesOrdered By: Zulma Dye on 08-17-2024 Lymphocytes/100 WBC Auto (Unsp spec) 13.9 % Low 19-41 [facility] Basophil percentageOrdered B y: Zulma Dye on 08-17-2024 Basophils/100 WBC (Bld) 0.5 % 0-1 [facility] Bilirubin, totalOrdered By: Zulma Dye on 08-17-2024 Bilirubin [Mass/Vol] 1.30 mg/dL High 0.20-1.00 [facility] Comment on above: For patients on eltr ombopag therapy, use of Dimension [place] TBIL is not recommended. Blood urea nitrogen (BUN)/cr eatinine ratioOrdered By: Zulma Dye on 08-17-2024 Urea nitrogen/Creatinine [Mass ratio] 19.5 mg/mg 10- [facility] CBC W/Diff, Automatedon 07-29 Absolute Lymph 0.77 X10 3/uL Low 0.83-4.51 [facility] Comment on above: Performed By: #### L 100.0100, L501.9520, L500.4050 #### [facility] [address] [place], [address] Absolute Neut 4.2 X10 3/uL Normal 2.0-7.7 [facility] Comment on above: Performed By: #### L 100.0100, L501.9520, L500.4050 #### [facility] [address] [place], [address] Basophils/100 WBC (Bld) 0.5 % Normal 0-1 [facility] Comment on above: Performed By: #### L 100.0100, L501.9520, L500.4050 #### [facility] [address] [place], [address] Eosinophils/100 WBC (Bld) 1.3 % Normal 0-5 [facility] Comment on above: Performed By: #### L 100.0100, L501.9520, L500.4050 #### [facility] [address] [place], [address] Erythrocyte distribution width (RBC) [Ratio] 13.3 % Normal 11.6-14.6 [facility] Comment on above: Performed By: #### L 100.0100, L501.9520, L500.4050 #### [facility] [address] [place], [address] Hematocrit (Bld) [Volume fraction] 41.1 % Normal 40-54 [facility] Comment on above: Performed By: #### L 100.0100, L501.9520, L500.4050 #### [facility] [address] [place], [address] Hemoglobin (Bld) [Mass/Vol] 13.1 g/dL Normal 13.0-16.5 [facility] Comment on above: Performed By: #### L 100.0100, L501.9520, L500.4050 #### [facility] [address] [place], [address] IG% 0.200 Normal 0.0-0.9 [facility] Comment on above: Result Comment: IG% - Immature Granulocytes (promyelocytes, myelocytes and metamyelocytes) > 1% indicates that a LEFT SHIFT is Present. Performed By: #### L 100.0100, L501.9520, L500.4050 #### [facility] [address] [place], [address] Lymphocytes/100 WBC (Bld) 13.9 % Low 19-41 [facility] Comment on above: Performed By: #### L 100.0100, L501.9520, L500.4050 #### [facility] [address] [place], [address] MCH (RBC) [Entitic mass] 30.7 pg Normal 27.0-32.0 [facility] Comment on above: Performed By: #### L 100.0100, L501.9520, L500.4050 #### [facility] [address] [place], [address] MCHC (RBC) [Mass/Vol] 31.9 g/dL Low 32-36 [facility] Comment on above: Performed By: #### L 100.0100, L501.9520, L500.4050 #### [facility] [address] [place], [address] MCV (RBC) [Entitic vol] 96.3 fL High 80-94 [facility] Comment on above: Performed By: #### L 100.0100, L501.9520, L500.4050 #### [facility] [address] [place], [address] Monocytes/100 WBC (Bld) 8.8 % Normal 0-10 [facility] Comment on above: Performed By: #### L 100.0100, L501.9520, L500.4050 #### [facility] [address] [place], [address] Neutrophils/100 WBC (Bld) 75.3 % High 47-70 [facility] Comment on above: Performed By: #### L 100.0100, L501.9520, L500.4050 #### [facility] [address] [place], [address] Nucleated RBC (Bld) [#/Vol] 0 10*3/uL Normal 0-5 [facility] Comment on above: Performed By: #### L 100.0100, L501.9520, L500.4050 #### [facility] [address] [place], [address] Platelet mean volume (Bld) [Entitic vol] 9.1 fL Normal 6.2-12.0 [facility] Comment on above: Performed By: #### L 100.0100, L501.9520, L500.4050 #### [facility] [address] [place], [address] Platelets (Bld) [#/Vol] 194 10*3/uL Normal 150-450 [facility] Comment on above: Performed By: #### L 100.0100, L501.9520, L500.4050 #### [facility] [address] [place], [address] RBC (Bld) [#/Vol] 4.27 10*6/uL Low 4.6-6.2 [facility] Comment on above: Performed By: #### L 100.0100, L501.9520, L500.4050 #### [facility] [address] [place], [address] RDW SD 47.8 fl High 35.1-43.9 [facility] Comment on above: Performed By: #### L 100.0100, L501.9520, L500.4050 #### [facility] [address] [place], [address] WBC (Bld) [#/Vol] 5.5 10*3/uL Normal 4.4-11.0 [facility] Comment on above: Performed By: #### L 100.0100, L501.9520, L500.4050 #### [facility] [address] [place], [address] Carbon dioxide measurementOr dered By: Zulma Dye on 08-17-2024 CO2 [Moles/Vol] 30.0 mmol/L 21.0-32.0 [facility] Chloride measurementOrdered By: Zulma Dye on 08-17-2024 Chloride [Moles/Vol] 108 mmol/L High 98-107 [facility] Comprehensive Metabolic Prof ilon 08-17-2024 Albumin [Mass/Vol] 3.7 g/dL Normal 3.2-5.0 [facility] Comment on above: Performed By: #### L 100.0100, L501.9520, L500.4050 #### [facility] [address] [place], [address] Albumin/Globulin [Mass ratio] 1.1 {ratio} Normal 0.9-2.4 [facility] Comment on above: Performed By: #### L 100.0100, L501.9520, L500.4050 #### [facility] [address] [place], [address] ALK P 65 U/L Normal 45-117 [facility] Comment on above: Performed By: #### L 100.0100, L501.9520, L500.4050 #### [facility] [address] [place], [address] ALT [Catalytic activity/Vol] 19 U/L Normal 16-61 [facility] Comment on above: Performed By: #### L 100.0100, L501.9520, L500.4050 #### [facility] [address] [place], [address] AST [Catalytic activity/Vol] 18 U/L Normal 15-37 [facility] Comment on above: Performed By: #### L 100.0100, L501.9520, L500.4050 #### [facility] [address] [place], [address] Bilirubin [Mass/Vol] 1.30 mg/dL High 0.20-1.00 [facility] Comment on above: Result Comment: For patients on eltrombopag therapy, use of Dimension [place] TBIL is not recommended. Performed By: #### L 100.0100, L501.9520, L500.4050 #### [facility] [address] [place], [address] BUN/CRE 19.5 RATIO Normal 10-20 [facility] Comment on above: Performed By: #### L 100.0100, L501.9520, L500.4050 #### [facility] [address] [place], [address] CA,Total 9.6 mg/dL Normal 8.5-10.1 [facility] Comment on above: Performed By: #### L 100.0100, L501.9520, L500.4050 #### [facility] [address] [place], [address] Chloride [Moles/Vol] 108 mmol/L High 98-107 [facility] Comment on above: Performed By: #### L 100.0100, L501.9520, L500.4050 #### [facility] [address] [place], [address] CO2 [Moles/Vol] 30.0 mmol/L Normal 21.0-32.0 [facility] Comment on above: Performed By: #### L 100.0100, L501.9520, L500.4050 #### [facility] [address] [place], [address] Creatinine [Mass/Vol] 0.87 mg/dL Normal 0.70-1.30 [facility] Comment on above: Result Comment: The validity of the calculated GFR GFRAA in patients over 70 years has not been determined. Clinical correlation is essential. Performed By: #### L 100.0100, L501.9520, L500.4050 #### [facility] [address] [place], [address] EST GFR - AA 111 mL/min Normal >60 [facility] Comment on above: Result Comment: Afri can [place] GFR Calc Performed By: #### L 100.0100, L501.9520, L500.4050 #### [facility] [address] [place], [address] GAP 3 Low 5-15 [facility] Comment on above: Performed By: #### L 100.0100, L501.9520, L500.4050 #### [facility] [address] [place], [address] GFR/1.73 sq M.predicted among non-blacks MDRD (S/P/Bld) [Vol rate/Area] 92 mL/min/{1.73_m2} Normal >60 [facility] Comment on above: Result Comment: Non- GFR Calc Performed By: #### L 100.0100, L501.9520, L500.4050 #### [facility] [address] [place], [address] Globulin (S) [Mass/Vol] 3.4 g/dL Normal 2.2-4.2 [facility] Comment on above: Performed By: #### L 100.0100, L501.9520, L500.4050 #### [facility] [address] [place], [address] Glucose [Mass/Vol] 103 mg/dL Normal 74-106 [facility] Comment on above: Result Comment: Fast ing Glucose result from 100 to 125 mg/dL suggests IMPAIRED HOMEOSTASIS per A.D.A. criteria. Performed By: #### L 100.0100, L501.9520, L500.4050 #### [facility] [address] [place], [address] Potassium [Moles/Vol] 4.6 mmol/L Normal 3.5-5.1 [facility] Comment on above: Performed By: #### L 100.0100, L501.9520, L500.4050 #### [facility] [address] [place], [address] Sodium [Moles/Vol] 141 mmol/L Normal 136-145 [facility] Comment on above: Performed By: #### L 100.0100, L501.9520, L500.4050 #### [facility] [address] [place], [address] T PROT 7.1 g/dL Normal 6.4-8.2 [facility] Comment on above: Performed By: #### L 100.0100, L501.9520, L500.4050 #### [facility] [address] [place], [address] Urea nitrogen [Mass/Vol] 17 mg/dL Normal 7-18 [facility] Comment on above: Performed By: #### L 100.0100, L501.9520, L500.4050 #### [facility] [address] [place], [address] Eosinophil percentageOrdered By: Zulma Dye on 08-17-2024 Eosinophils/100 WBC (Bld) 1.3 % 0-5 [facility] Erythrocyte distribution wid th ratioOrdered By: Zulma Dye on 08-17-2024 Erythrocyte distribution width (RBC) [Ratio] 13.3 % 11.6-14.6 [facility] Erythrocyte distribution wid th standard deviationOrdered By: Zulma Dye on 08-17-2024 Erythrocyte distribution width (RBC) [Entitic vol] 47.8 fL High 35.1-43.9 [facility] Erythrocyte distribution width (RBC) [Ratio] 47.8 fl High 35.1-43.9 [facility] Estimated glomerular filtrat ion rate (GFR) AmericanOrdered By: Zulma Dey on 08-17-2024 Estimated GFR (MDRD) Amer 111 mL/min >60 [facility] Comment on above: GFR Calc Glomerular filtration rate ( GFR) estimationOrdered By: Zulma Dye on 08-17-2024 Estimated GFR (MDRD) Non-Af Amer 92 mL/min >60 [facility] Comment on above: Non- GFR Calc GFR/1.73 sq M.predicted among non-blacks MDRD (S/P/Bld) [Vol rate/Area] 92 mL/min/{1.73_m2} >60 [facility] Comment on above: Non- GFR Calc Glucose measurementOrdered B y: Zulma Dye on 08-17-2024 Glucose [Mass/Vol] 103 mg/dL 74-106 [facility] Comment on above: Fasting Glucose resu lt from 100 to 125 mg/dL suggests IMPAIRED HOMEOSTASIS per A.D.A. criteria. Hematocrit Auto (Bld) [Volum e fraction]Ordered By: Zulma Dye on 08-17-2024 Hematocrit (Bld) [Volume fraction] 41.1 % 40-54 [facility] Hemoglobin measurementOrdere d By: Zulma Dye on 08-17-2024 Hemoglobin (Bld) [Mass/Vol] 13.1 g/dL 13.0-16.5 [facility] Immature granulocytes/100 WB C Auto (Bld)Ordered By: Zulma Dye on 08-17-2024 Immature granulocytes/100 WBC (Bld) 0.200 % 0.0-0.9 [facility] Comment on above: IG% - Immature Granu locytes (promyelocytes, myelocytes and metamyelocytes) > 1% indicates that a LEFT SHIFT is Present. Laboratory - Chemistry and C hemistry - challengeOrdered By: Zulma Dye on 08-17-2024 AST [Catalytic activity/Vol] 18 U/L 15-37 [facility] Lymphocytes Auto (Unsp spec) [#/Vol]Ordered By: Zulma Dye on 08-17-2024 Lymphocytes (Bld) [#/Vol] 0.77 10*3/uL Low 0.83-4.51 [facility] Lymphocytes/100 WBC Auto (Un sp spec)Ordered By: Zulma Dye on 08-17-2024 Lymphocytes/100 WBC (Bld) 13.9 % Low 19-41 [facility] MCV (mean corpuscular volume ) determinationOrdered By: Zulma Dye on 08-17-2024 MCV (RBC) [Entitic vol] 96.3 fL High 80-94 [facility] Mean corpuscular hemoglobin (MCH) determinationOrdered By: Zulma Dye on 08-17-2024 MCH (RBC) [Entitic mass] 30.7 pg 27.0-32.0 [facility] Mean corpuscular hemoglobin concentration (MCHC) determinationOrdered By: Zulma Dye on 08-17-2024 MCHC (RBC) [Mass/Vol] 31.9 g/dL Low 32-36 [facility] Mean platelet volume determi nationOrdered By: Zulma Dye on 08-17-2024 Platelet mean volume (Bld) [Entitic vol] 9.1 fL 6.2-12.0 [facility] Monocyte percentageOrdered B y: Zulma Dye on 08-17-2024 Monocytes/100 WBC (Bld) 8.8 % 0-10 [facility] Neutrophil percentageOrdered By: Zulma Dye on 08-17-2024 Neutrophils/100 WBC (Bld) 75.3 % High 47-70 [facility] Nucleated red blood cell per centageOrdered By: Zulma Dye on 08-17-2024 Nucleated RBC/100 WBC (Bld) [Ratio] 0 % 0-5 [facility] Platelet countOrdered By: Ruperto Dye on 08-17-2024 Platelets (Bld) [#/Vol] 194 10*3/uL 150-450 [facility] Potassium measurementOrdered By: Zulma Dye on 08-17-2024 Potassium [Moles/Vol] 4.6 mmol/L 3.5-5.1 [facility] RBC Auto (Bld) [#/Vol]Ordere d By: Zulam Dye on 08-17-2024 RBC (Bld) [#/Vol] 4.27 10*6/uL Low 4.6-6.2 [facility] Serum anion gap measurementO rdered By: Zulma Dye on 08-17-2024 Anion gap [Moles/Vol] 3 mmol/L Low 5-15 [facility] Serum globulin measurementOr dered By: Zulma Dye on 08-17-2024 Globulin (S) [Mass/Vol] 3.4 g/dL 2.2-4.2 [facility] Serum or plasma alanine kebede otransferase (ALT) measurementOrdered By: Zulma Dye on 08-17-2024 ALT [Catalytic activity/Vol] 19 U/L 16-61 [facility] Serum or plasma albumin eileen urement (mass/volume)Ordered By: Zulma Dye on 08-17-2024 Albumin [Mass/Vol] 3.7 g/dL 3.2-5.0 [facility] Serum or plasma alkaline tara sphatase measurementOrdered By: Zulma Dye on 08-17-2024 ALP [Catalytic activity/Vol] 65 U/L 45-117 [facility] Serum or plasma calcium eileen urement (mass/volume)Ordered By: Zulma Dye on 08-17-2024 Calcium [Mass/Vol] 9.6 mg/dL 8.5-10.1 [facility] Serum or plasma creatinine m easurement (mass/volume)Ordered By: Zulma Dye on 08-17-2024 Creatinine [Mass/Vol] 0.87 mg/dL 0.70-1.30 [facility] Comment on above: The validity of the calculated GFR & GFRAA in patients over 70 years has not been determined. Clinical correlation is essential. Serum or plasma thyroid stim ulating hormone (TSH) measurement (units/volume)Ordered By: Zulma Dye on 08-17-2024 TSH Qn 2.090 uIU/mL 0.358-3.740 [facility] Serum or plasma urea nitroge n measurement (mass/volume)Ordered By: Zulma Dye on 08-17-2024 Urea nitrogen [Mass/Vol] 17 mg/dL 7-18 [facility] Sodium levelOrdered By: Prashant Dye on 08-17-2024 Sodium [Moles/Vol] 141 mmol/L 136-145 [facility] TSH QnOrdered By: Zulma tuttle on 08-17-2024 Thyroid Stimulating Hormone (TSH) 2.090 uIU/mL 0.358-3.740 [facility] Thyroid Stim Hormone (TSH)on 08-17-2024 TSH 2.090 uIU/mL Normal 0.358-3.740 [facility] Comment on above: Performed By: #### L 100.0100, L501.9520, L500.4050 #### [facility] [address] [place], [place], [id number] Total proteinOrdered By: Bjorn Dye on 08-17-2024 Protein [Mass/Vol] 7.1 g/dL 6.4-8.2 [facility] White blood cell (WBC) count Ordered By: Zulma Dye on 08-17-2024 WBC (Bld) [#/Vol] 5.5 10*3/uL 4.4-11.0 [facility] Absolute neutrophil countOrd ered By: Zulma Dye on 06-12-2024 Neutrophils (Bld) [#/Vol] 2.8 10*3/uL 2.0-7.7 [facility] Albumin to globulin ratioOrd ered By: Zulma Dye on 06-12-2024 Albumin/Globulin [Mass ratio] 1.0 {ratio} 0.9-2.4 [facility] Basophil percentageOrdered B y: Zulma Dye on 06-12-2024 Basophils/100 WBC (Bld) 0.9 % 0-1 [facility] Bilirubin, totalOrdered By: Zulma Dye on 06-12-2024 Bilirubin [Mass/Vol] 1.10 mg/dL High 0.20-1.00 [facility] Comment on above: For patients on eltr ombopag therapy, use of Dimension [place] TBIL is not recommended. Blood urea nitrogen (BUN)/cr eatinine ratioOrdered By: Zulma Dye on 06-12-2024 Urea nitrogen/Creatinine [Mass ratio] 19.3 mg/mg 10-20 [facility] CBC W/Diff, Automatedon 05-27 Absolute Lymph 1.08 X10 3/uL Normal 0.83-4.51 [facility] Comment on above: Performed By: #### L 100.0100, L500.4100, L500.4050 #### [facility] [address] [place], [address] Absolute Neut 2.8 X10 3/uL Normal 2.0-7.7 [facility] Comment on above: Performed By: #### L 100.0100, L500.4100, L500.4050 #### [facility] [address] [place], [address] Basophils/100 WBC (Bld) 0.9 % Normal 0-1 [facility] Comment on above: Performed By: #### L 100.0100, L500.4100, L500.4050 #### [facility] [address] [place], [address] Eosinophils/100 WBC (Bld) 2.9 % Normal 0-5 [facility] Comment on above: Performed By: #### L 100.0100, L500.4100, L500.4050 #### [facility] [address] [place], [address] Erythrocyte distribution width (RBC) [Ratio] 13.1 % Normal 11.6-14.6 [facility] Comment on above: Performed By: #### L 100.0100, L500.4100, L500.4050 #### [facility] [address] [place], [address] Hematocrit (Bld) [Volume fraction] 41.9 % Normal 40-54 [facility] Comment on above: Performed By: #### L 100.0100, L500.4100, L500.4050 #### [facility] [address] [place], [address] Hemoglobin (Bld) [Mass/Vol] 13.3 g/dL Normal 13.0-16.5 [facility] Comment on above: Performed By: #### L 100.0100, L500.4100, L500.4050 #### [facility] [address] [place], [address] IG% 0.200 Normal 0.0-0.9 [facility] Comment on above: Result Comment: IG% - Immature Granulocytes (promyelocytes, myelocytes and metamyelocytes) > 1% indicates that a LEFT SHIFT is Present. Performed By: #### L 100.0100, L500.4100, L500.4050 #### [facility] [address] [place], [address] Lymphocytes/100 WBC (Bld) 24.4 % Normal 19-41 [facility] Comment on above: Performed By: #### L 100.0100, L500.4100, L500.4050 #### [facility] [address] [place], [address] MCH (RBC) [Entitic mass] 30.4 pg Normal 27.0-32.0 [facility] Comment on above: Performed By: #### L 100.0100, L500.4100, L500.4050 #### [facility] [address] [place], [address] MCHC (RBC) [Mass/Vol] 31.7 g/dL Low 32-36 [facility] Comment on above: Performed By: #### L 100.0100, L500.4100, L500.4050 #### [facility] [address] [place], [address] MCV (RBC) [Entitic vol] 95.9 fL High 80-94 [facility] Comment on above: Performed By: #### L 100.0100, L500.4100, L500.4050 #### [facility] [address] [place], [address] Monocytes/100 WBC (Bld) 8.4 % Normal 0-10 [facility] Comment on above: Performed By: #### L 100.0100, L500.4100, L500.4050 #### [facility] [address] [place], [address] Neutrophils/100 WBC (Bld) 63.2 % Normal 47-70 [facility] Comment on above: Performed By: #### L 100.0100, L500.4100, L500.4050 #### [facility] [address] [place], [address] Nucleated RBC (Bld) [#/Vol] 0 10*3/uL Normal 0-5 [facility] Comment on above: Performed By: #### L 100.0100, L500.4100, L500.4050 #### [facility] [address] [place], [address] Platelet mean volume (Bld) [Entitic vol] 8.5 fL Normal 6.2-12.0 [facility] Comment on above: Performed By: #### L 100.0100, L500.4100, L500.4050 #### [facility] [address] [place], [address] Platelets (Bld) [#/Vol] 197 10*3/uL Normal 150-450 [facility] Comment on above: Performed By: #### L 100.0100, L500.4100, L500.4050 #### [facility] [address] [place], [address] RBC (Bld) [#/Vol] 4.37 10*6/uL Low 4.6-6.2 [facility] Comment on above: Performed By: #### L 100.0100, L500.4100, L500.4050 #### [facility] [address] [place], [address] RDW SD 46.6 fl High 35.1-43.9 [facility] Comment on above: Performed By: #### L 100.0100, L500.4100, L500.4050 #### [facility] [address] [place], [address] WBC (Bld) [#/Vol] 4.4 10*3/uL Normal 4.4-11.0 [facility] Comment on above: Performed By: #### L 100.0100, L500.4100, L500.4050 #### [facility] [address] [place], [address] Carbon dioxide measurementOr dered By: Zulma Dye on 06-12-2024 CO2 [Moles/Vol] 30.0 mmol/L 21.0-32.0 [facility] Chloride measurementOrdered By: Zulma Dye on 06-12-2024 Chloride [Moles/Vol] 107 mmol/L 98-107 [facility] Comprehensive Metabolic Prof ilon 06-12-2024 Albumin [Mass/Vol] 3.4 g/dL Normal 3.2-5.0 [facility] Comment on above: Performed By: #### L 100.0100, L500.4100, L500.4050 #### [facility] [address] [place], [address] Albumin/Globulin [Mass ratio] 1.0 {ratio} Normal 0.9-2.4 [facility] Comment on above: Performed By: #### L 100.0100, L500.4100, L500.4050 #### [facility] [address] [place], [address] ALK P 66 U/L Normal 45-117 [facility] Comment on above: Performed By: #### L 100.0100, L500.4100, L500.4050 #### [facility] [address] [place], [address] ALT [Catalytic activity/Vol] 18 U/L Normal 16-61 [facility] Comment on above: Performed By: #### L 100.0100, L500.4100, L500.4050 #### [facility] [address] [place], [address] AST [Catalytic activity/Vol] 19 U/L Normal 15-37 [facility] Comment on above: Performed By: #### L 100.0100, L500.4100, L500.4050 #### [facility] [address] [place], [address] Bilirubin [Mass/Vol] 1.10 mg/dL High 0.20-1.00 [facility] Comment on above: Result Comment: For patients on eltrombopag therapy, use of Dimension [place] TBIL is not recommended. Performed By: #### L 100.0100, L500.4100, L500.4050 #### [facility] [address] [place], [address] BUN/CRE 19.3 RATIO Normal 10-20 [facility] Comment on above: Performed By: #### L 100.0100, L500.4100, L500.4050 #### [facility] [address] [place], [address] CA,Total 8.9 mg/dL Normal 8.5-10.1 [facility] Comment on above: Performed By: #### L 100.0100, L500.4100, L500.4050 #### [facility] [address] [place], [address] Chloride [Moles/Vol] 107 mmol/L Normal 98-107 [facility] Comment on above: Performed By: #### L 100.0100, L500.4100, L500.4050 #### [facility] [address] [place], [address] CO2 [Moles/Vol] 30.0 mmol/L Normal 21.0-32.0 [facility] Comment on above: Performed By: #### L 100.0100, L500.4100, L500.4050 #### [facility] [address] [place], [address] Creatinine [Mass/Vol] 0.94 mg/dL Normal 0.70-1.30 [facility] Comment on above: Result Comment: The validity of the calculated GFR GFRAA in patients over 70 years has not been determined. Clinical correlation is essential. Performed By: #### L 100.0100, L500.4100, L500.4050 #### [facility] [address] [place], [address] EST GFR - AA 103 mL/min Normal >60 [facility] Comment on above: Result Comment: Afri can [place] GFR Calc Performed By: #### L 100.0100, L500.4100, L500.4050 #### [facility] [address] [place], [address] GAP 3 Low 5-15 [facility] Comment on above: Performed By: #### L 100.0100, L500.4100, L500.4050 #### [facility] [address] [place], [address] GFR/1.73 sq M.predicted among non-blacks MDRD (S/P/Bld) [Vol rate/Area] 85 mL/min/{1.73_m2} Normal >60 [facility] Comment on above: Result Comment: Non- GFR Calc Performed By: #### L 100.0100, L500.4100, L500.4050 #### [facility] [address] [place], [address] Globulin (S) [Mass/Vol] 3.5 g/dL Normal 2.2-4.2 [facility] Comment on above: Performed By: #### L 100.0100, L500.4100, L500.4050 #### [facility] [address] [place], [address] Glucose [Mass/Vol] 95 mg/dL Normal 74-106 [facility] Comment on above: Performed By: #### L 100.0100, L500.4100, L500.4050 #### [facility] [address] [place], [address] Potassium [Moles/Vol] 3.9 mmol/L Normal 3.5-5.1 [facility] Comment on above: Performed By: #### L 100.0100, L500.4100, L500.4050 #### [facility] [address] [place], [address] Sodium [Moles/Vol] 140 mmol/L Normal 136-145 [facility] Comment on above: Performed By: #### L 100.0100, L500.4100, L500.4050 #### [facility] [address] [place], [address] T PROT 6.9 g/dL Normal 6.4-8.2 [facility] Comment on above: Performed By: #### L 100.0100, L500.4100, L500.4050 #### [facility] [address] [place], [address] Urea nitrogen [Mass/Vol] 18 mg/dL Normal 7-18 [facility] Comment on above: Performed By: #### L 100.0100, L500.4100, L500.4050 #### [facility] [address] [place], [address] Eosinophil percentageOrdered By: Zulma Dye on 06-12-2024 Eosinophils/100 WBC (Bld) 2.9 % 0-5 [facility] Erythrocyte distribution wid th ratioOrdered By: Zulma Dye on 06-12-2024 Erythrocyte distribution width (RBC) [Ratio] 13.1 % 11.6-14.6 [facility] Erythrocyte distribution wid th standard deviationOrdered By: Zulma Dye on 06-12-2024 Erythrocyte distribution width (RBC) [Entitic vol] 46.6 fL High 35.1-43.9 [facility] Estimated glomerular filtrat ion rate (GFR) AmericanOrdered By: Zulma Dye on 06-12-2024 Estimated GFR (MDRD) Amer 103 mL/min >60 [facility] Comment on above: GFR Calc Glomerular filtration rate ( GFR) estimationOrdered By: Zulma Dye on 06-12-2024 Estimated GFR (MDRD) Non-Af Amer 85 mL/min >60 [facility] Comment on above: Non- GFR Calc Glucose measurementOrdered B y: Zulma Dye on 06-12-2024 Glucose [Mass/Vol] 95 mg/dL 74-106 [facility] Hematocrit Auto (Bld) [Volum e fraction]Ordered By: Zulma Dye on 06-12-2024 Hematocrit (Bld) [Volume fraction] 41.9 % 40-54 [facility] Hemoglobin measurementOrdere d By: Zulma Dye on 06-12-2024 Hemoglobin (Bld) [Mass/Vol] 13.3 g/dL 13.0-16.5 [facility] High density lipoprotein (HD L) measurementOrdered By: Zulma Dye on 06-12-2024 Cholesterol in HDL [Mass/Vol] 56 mg/dL >40 [facility] Comment on above: The drugs N-Acetylcy steine and Metamizole may falsely depress this assay. Reference Range HDL <40 mg/dL Low HDL Cholesterol HDL >or= 60 mg/dL High HDL Cholesterol Immature granulocytes/100 WB C Auto (Bld)Ordered By: Zulma Dye on 06-12-2024 Immature granulocytes/100 WBC (Bld) 0.200 % 0.0-0.9 [facility] Comment on above: IG% - Immature Granu locytes (promyelocytes, myelocytes and metamyelocytes) > 1% indicates that a LEFT SHIFT is Present. Laboratory - Chemistry and C hemistry - challengeOrdered By: Zulma Dye on 06-12-2024 AST [Catalytic activity/Vol] 19 U/L 15-37 [facility] Lipid Profileon 06-12-2024 Cholesterol [Mass/Vol] 208 mg/dL High 200 [facility] Comment on above: Result Comment: <200 mg/dL Desirable 200-240 mg/dL Borderline >240 mg/dL High Risk Performed By: #### L 100.0100, L500.4100, L500.4050 #### [facility] [address] [place], [address] Cholesterol in HDL [Mass/Vol] 56 mg/dL Normal [facility] Comment on above: Result Comment: The drugs N-Acetylcysteine and Metamizole may falsely depress this assay. Reference Range HDL <40 mg/dL Low HDL Cholesterol HDL >or= 60 mg/dL High HDL Cholesterol Performed By: #### L 100.0100, L500.4100, L500.4050 #### [facility] [address] [place], [address] Cholesterol in LDL [Mass/Vol] 129 mg/dL Normal 0-130 [facility] Comment on above: Performed By: #### L 100.0100, L500.4100, L500.4050 #### [facility] [address] [place], [address] Cholesterol in VLDL [Mass/Vol] 23 mg/dL Normal 5-40 [facility] Comment on above: Performed By: #### L 100.0100, L500.4100, L500.4050 #### [facility] [address] [place], [address] Triglyceride [Mass/Vol] 116 mg/dL Normal [facility] Comment on above: Result Comment: The drugs N-Acetylcysteine and Metamizole may falsely depress this assay. Serum Triglycerides Reference Interval Normal <150 mg/dL Borderline high 150 - 199 mg/dL High 200 - 499 mg/dL Very High > or = 500 mg/dL Performed By: #### L 100.0100, L500.4100, L500.4050 #### [facility] [address] [place], [address] Low density lipoprotein (LDL ) cholesterol measurementOrdered By: Zulma Dye on 06-12-2024 Cholesterol in LDL [Mass/Vol] 129 mg/dL 0-130 [facility] Lymphocytes Auto (Unsp spec) [#/Vol]Ordered By: Zulma Dye on 06-12-2024 Lymphocytes (Bld) [#/Vol] 1.08 10*3/uL 0.83-4.51 [facility] Lymphocytes/100 WBC Auto (Un sp spec)Ordered By: Zulma Dye on 06-12-2024 Lymphocytes/100 WBC (Bld) 24.4 % 19-41 [facility] MCV (mean corpuscular volume ) determinationOrdered By: Zulma Dye on 06-12-2024 MCV (RBC) [Entitic vol] 95.9 fL High 80-94 [facility] Mean corpuscular hemoglobin (MCH) determinationOrdered By: Zulma Dye on 06-12-2024 MCH (RBC) [Entitic mass] 30.4 pg 27.0-32.0 [facility] Mean corpuscular hemoglobin concentration (MCHC) determinationOrdered By: Zulma Dye on 06-12-2024 MCHC (RBC) [Mass/Vol] 31.7 g/dL Low 32-36 [facility] Mean platelet volume determi nationOrdered By: Zulma Dye on 06-12-2024 Platelet mean volume (Bld) [Entitic vol] 8.5 fL 6.2-12.0 [facility] Monocyte percentageOrdered B y: Zulma Dye on 06-12-2024 Monocytes/100 WBC (Bld) 8.4 % 0-10 [facility] Neutrophil percentageOrdered By: Zulma Dye on 06-12-2024 Neutrophils/100 WBC (Bld) 63.2 % 47-70 [facility] Nucleated red blood cell per centageOrdered By: Zulma Dye on 06-12-2024 Nucleated RBC/100 WBC (Bld) [Ratio] 0 % 0-5 [facility] Platelet countOrdered By: Ruperto Dye on 06-12-2024 Platelets (Bld) [#/Vol] 197 10*3/uL 150-450 [facility] Potassium measurementOrdered By: Zulma Dye on 06-12-2024 Potassium [Moles/Vol] 3.9 mmol/L 3.5-5.1 [facility] RBC Auto (Bld) [#/Vol]Ordere d By: Zulma Dye on 06-12-2024 RBC (Bld) [#/Vol] 4.37 10*6/uL Low 4.6-6.2 [facility] Serum anion gap measurementO rdered By: Zulma Dye on 06-12-2024 Anion gap [Moles/Vol] 3 mmol/L Low 5-15 [facility] Serum globulin measurementOr dered By: Zulma Dye on 06-12-2024 Globulin (S) [Mass/Vol] 3.5 g/dL 2.2-4.2 [facility] Serum or plasma alanine kebede otransferase (ALT) measurementOrdered By: Zulma Dye on 06-12-2024 ALT [Catalytic activity/Vol] 18 U/L 16-61 [facility] Serum or plasma albumin eileen urement (mass/volume)Ordered By: Zulma Dye on 06-12-2024 Albumin [Mass/Vol] 3.4 g/dL 3.2-5.0 [facility] Serum or plasma alkaline tara sphatase measurementOrdered By: Zulma Dye on 06-12-2024 ALP [Catalytic activity/Vol] 66 U/L 45-117 [facility] Serum or plasma calcium eileen urement (mass/volume)Ordered By: Zulma Dye on 06-12-2024 Calcium [Mass/Vol] 8.9 mg/dL 8.5-10.1 [facility] Serum or plasma cholesterol measurement (mass/volume)Ordered By: Zulma Dye on 06-12-2024 Cholesterol [Mass/Vol] 208 mg/dL High <200 [facility] Comment on above: <200 mg/dL Desirable 200-240 mg/dL Borderline >240 mg/dL High Risk Serum or plasma creatinine m easurement (mass/volume)Ordered By: Zulma Dye on 06-12-2024 Creatinine [Mass/Vol] 0.94 mg/dL 0.70-1.30 [facility] Comment on above: The validity of the calculated GFR & GFRAA in patients over 70 years has not been determined. Clinical correlation is essential. Serum or plasma urea nitroge n measurement (mass/volume)Ordered By: Zulma Dye on 06-12-2024 Urea nitrogen [Mass/Vol] 18 mg/dL 7-18 [facility] Sodium levelOrdered By: Prashant Dye on 06-12-2024 Sodium [Moles/Vol] 140 mmol/L 136-145 [facility] Total proteinOrdered By: Bjorn Dye on 06-12-2024 Protein [Mass/Vol] 6.9 g/dL 6.4-8.2 [facility] Triglycerides measurementOrd ered By: Zulma Dye on 06-12-2024 Triglyceride [Mass/Vol] 116 mg/dL <199 [facility] Comment on above: The drugs N-Acetylcy steine and Metamizole may falsely depress this assay.Serum Triglycerides Reference Interval Normal <150 mg/dL Borderline high 150 - 199 mg/dL High 200 - 499 mg/dL Very High > or = 500 mg/dL Very low density lipoprotein (VLDL) cholesterol measurementOrdered By: Zulma Dye on 06-12-2024 VLDL Cholesterol 23 mg/dL 5-40 [facility] White blood cell (WBC) count Ordered By: Zulma Dye on 06-12-2024 WBC (Bld) [#/Vol] 4.4 10*3/uL 4.4-11.0 [facility] Absolute lymphocyte countOrd ered By: Zulma Dye on 06-01-2023 Lymphocytes Auto (Unsp spec) [#/Vol] 1.14 10*3/uL 0.83-4.51 [facility] Basophil percentageOrdered B y: Zulma Dye on 06-01-2023 Basophils/100 WBC (Bld) 0.8 % 0-1 [facility] Bilirubin [Mass/Vol] 1.80 mg/dL 0.20-1.00 [facility] Comment on above: For patients on eltr ombopag therapy, use of Dimension [place] TBIL is not recommended. Chloride [Moles/Vol] 107 mmol/L 98-107 [facility] Cholesterol [Mass/Vol] 193 mg/dL <200 [facility] Comment on above: <200 mg/dL Desirable 200-240 mg/dL Borderline >240 mg/dL High Risk Eosinophils/100 WBC (Bld) 4.3 % 0-5 [facility] Glucose [Mass/Vol] 88 mg/dL 74-106 [facility] Neutrophils (Bld) [#/Vol] 2.3 10*3/uL 2.0-7.7 [facility] Neutrophils/100 WBC (Bld) 56.3 % 47-70 [facility] Potassium [Moles/Vol] 3.9 mmol/L 3.5-5.1 [facility] Protein [Mass/Vol] 6.9 g/dL 6.4-8.2 [facility] Sodium [Moles/Vol] 143 mmol/L 136-145 [facility] Triglyceride [Mass/Vol] 85 mg/dL <199 [facility] Comment on above: The drugs N-Acetylcy steine and Metamizole may falsely depress this assay.Serum Triglycerides Reference Interval Normal <150 mg/dL Borderline high 150 - 199 mg/dL High 200 - 499 mg/dL Very High > or = 500 mg/dL WBC (Bld) [#/Vol] 4.0 10*3/uL 4.4-11.0 [facility] Blood erythrocytes count (nu mber/volume)Ordered By: Zulma Dye on 06-01-2023 RBC (Bld) [#/Vol] 4.30 10*6/uL 4.6-6.2 [facility] Blood hemoglobin measurement (mass/volume)Ordered By: Zulma Dye on 06-01-2023 Hemoglobin (Bld) [Mass/Vol] 13.0 g/dL 13.0-16.5 [facility] Blood lymphocytes/100 leukoc ytesOrdered By: Zulma Dye on 06-01-2023 Lymphocytes/100 WBC (Bld) 28.5 % 19-41 [facility] Blood monocytes/100 leukocyt esOrdered By: Zulma Dye on 06-01-2023 Monocytes/100 WBC (Bld) 9.8 % 0-10 [facility] Blood platelet mean volumeOr dered By: Zulma Dye on 06-01-2023 Platelet mean volume (Bld) [Entitic vol] 9.1 fL 6.2-12.0 [facility] Determination of erythrocyte mean corpuscular volume (MCV)Ordered By: Zulma Dye on 06-01-2023 MCV (RBC) [Entitic vol] 97.0 fL 80-94 [facility] Hematocrit Auto (Bld) [Volum e fraction]Ordered By: Zulma Dye on 06-01-2023 Hematocrit (Bld) [Volume fraction] 41.7 % 40-54 [facility] Laboratory - Chemistry and C hemistry - challengeOrdered By: Zulma Dye on 06-01-2023 ALP [Catalytic activity/Vol] 58 U/L 45-117 [facility] ALT [Catalytic activity/Vol] 18 U/L 16-61 [facility] CO2 [Moles/Vol] 30.0 mmol/L 21.0-32.0 [facility] Globulin (S) [Mass/Vol] 3.3 g/dL 2.2-4.2 [facility] Urea nitrogen/Creatinine [Mass ratio] 22.7 mg/mg 10-20 [facility] Laboratory - Hematology and Cell countsOrdered By: Zulma Dye on 06-01-2023 Erythrocyte distribution width (RBC) [Entitic vol] 47.9 fL 35.1-43.9 [facility] Erythrocyte distribution width (RBC) [Ratio] 13.4 % 11.6-14.6 [facility] Immature granulocytes/100 WBC (Bld) 0.300 % 0.0-0.9 [facility] Comment on above: IG% - Immature Granu locytes (promyelocytes, myelocytes and metamyelocytes) > 1% indicates that a LEFT SHIFT is Present. MCH (RBC) [Entitic mass] 30.2 pg 27.0-32.0 [facility] Nucleated RBC/100 WBC (Bld) [Ratio] 0 % 0-5 [facility] MCHC Auto (RBC) [Mass/Vol]Or dered By: Zulma Dye on 06-01-2023 MCHC (RBC) [Mass/Vol] 31.2 g/dL 32-36 [facility] No Panel InformationOrdered By: Zulma Dye on 06-01-2023 Estimated GFR (MDRD) Amer 110 mL/min >60 [facility] Comment on above: GFR Calc Estimated GFR (MDRD) Non-Af Amer 91 mL/min >60 [facility] Comment on above: Non- GFR Calc Prostate Specific Antigen Screen 1.46 ng/mL 0.00-4.00 [facility] Comment on above: This test was perfor med using the TPSA assay method for the[employer] chemistry system. Values obtained with differentassay methods cannot be used interchangably.When changing PSA assays in the course of monitoring apatient, additional sequential testing should be carriedout to confirm baseline values. Platelets bldOrdered By: Bjorn Dye on 06-01-2023 Platelets (Bld) [#/Vol] 188 10*3/uL 150-450 [facility] Serum or plasma albumin eileen urement (mass/volume)Ordered By: Zulma Dye on 06-01-2023 Albumin [Mass/Vol] 3.6 g/dL 3.2-5.0 [facility] Serum or plasma albumin/glob ulin mass ratioOrdered By: Zulma Dye on 06-01-2023 Albumin/Globulin [Mass ratio] 1.1 {ratio} 0.9-2.4 [facility] Serum or plasma calcium eileen urement (mass/volume)Ordered By: Zulma Dye on 06-01-2023 Calcium [Mass/Vol] 8.7 mg/dL 8.5-10.1 [facility] Serum or plasma cholesterol in HDL measurement (mass/volume)Ordered By: Zulma Dye on 06-01-2023 Cholesterol in HDL [Mass/Vol] 62 mg/dL >40 [facility] Comment on above: The drugs N-Acetylcy steine and Metamizole may falsely depress this assay. Reference Range HDL <40 mg/dL Low HDL Cholesterol HDL >or= 60 mg/dL High HDL Cholesterol Serum or plasma cholesterol in VLDL measurement (mass/volume)Ordered By: Zulma Dye on 06-01-2023 Cholesterol in VLDL [Mass/Vol] 17 mg/dL 5-40 [facility] Serum or plasma creatinine m easurement (mass/volume)Ordered By: Zulma Dye on 06-01-2023 Creatinine [Mass/Vol] 0.88 mg/dL 0.70-1.30 [facility] Comment on above: The validity of the calculated GFR & GFRAA in patients over 70 years has not been determined. Clinical correlation is essential. Serum or plasma low density lipoprotein (LDL) cholesterol measurement (mass/volume)Ordered By: Zulma Dye on 06-01-2023 Cholesterol in LDL [Mass/Vol] 114 mg/dL 0-130 [facility] Serum or plasma urea nitroge n measurement (mass/volume)Ordered By: Zulma Dye on 06-01-2023 Urea nitrogen [Mass/Vol] 20 mg/dL 7-18 [facility] Thin prep Papanicolaou smear with manual screeningOrdered By: Zulma Dye on 06-01-2023 Thin prep Papanicolaou smear with manual screening 22 U/L 15-37 [facility] Thin prep Papanicolaou smear with manual screening 6 5-15 [facility] Culture, urineOrdered By: Dr Anabel Domínguez on 11-28-2022 Bacteria identified Cx Nom (U) Culture exhibits no growth. [facility] Culture, urineOrdered By: Dr Anabel Dye on 07-11-2022 Bacteria identified Cx Nom (U) Escherichia coli [facility] Absolute lymphocyte countOrd ered By: Dr. Dye on 05-04-2022 Lymphocytes Auto (Unsp spec) [#/Vol] 1.19 10*3/uL 0.83-4.51 [facility] Basophil percentageOrdered B y: Dr. Dye on 05-04-2022 Basophils/100 WBC (Bld) 0.7 % 0-1 [facility] Bilirubin [Mass/Vol] 1.70 mg/dL 0.20-1.00 [facility] Comment on above: For patients on eltr ombopag therapy, use of Dimension [place] TBIL is not recommended. Chloride [Moles/Vol] 106 mmol/L 98-107 [facility] Cholesterol [Mass/Vol] 217 mg/dL <200 [facility] Comment on above: <200 mg/dL Desirable 200-240 mg/dL Borderline >240 mg/dL High Risk Eosinophils/100 WBC (Bld) 2.0 % 0-5 [facility] Glucose [Mass/Vol] 86 mg/dL 74-106 [facility] Neutrophils (Bld) [#/Vol] 2.8 10*3/uL 2.0-7.7 [facility] Neutrophils/100 WBC (Bld) 61.8 % 47-70 [facility] Potassium [Moles/Vol] 4.2 mmol/L 3.5-5.1 [facility] Protein [Mass/Vol] 6.9 g/dL 6.4-8.2 [facility] Sodium [Moles/Vol] 139 mmol/L 136-145 [facility] Triglyceride [Mass/Vol] 110 mg/dL <199 [facility] Comment on above: The drugs N-Acetylcy steine and Metamizole may falsely depress this assay.Serum Triglycerides Reference Interval Normal <150 mg/dL Borderline high 150 - 199 mg/dL High 200 - 499 mg/dL Very High > or = 500 mg/dL WBC (Bld) [#/Vol] 4.5 10*3/uL 4.4-11.0 [facility] Blood erythrocytes count (nu mber/volume)Ordered By: Dr. Dye on 05-04-2022 RBC (Bld) [#/Vol] 4.42 10*6/uL 4.6-6.2 [facility] Blood hemoglobin measurement (mass/volume)Ordered By: Dr. Dye on 05-04-2022 Hemoglobin (Bld) [Mass/Vol] 13.6 g/dL 13.0-16.5 [facility] Blood lymphocytes/100 leukoc ytesOrdered By: Dr. Dye on 05-04-2022 Lymphocytes/100 WBC (Bld) 26.6 % 19-41 [facility] Blood monocytes/100 leukocyt esOrdered By: Dr. Dye on 05-04-2022 Monocytes/100 WBC (Bld) 8.7 % 0-10 [facility] Blood platelet mean volumeOr dered By: Dr. Dye on 05-04-2022 Platelet mean volume (Bld) [Entitic vol] 9.0 fL 6.2-12.0 [facility] Determination of erythrocyte mean corpuscular volume (MCV)Ordered By: Dr. Dye on 05-04-2022 MCV (RBC) [Entitic vol] 94.6 fL 80-94 [facility] Hematocrit Auto (Bld) [Volum e fraction]Ordered By: Dr. Dye on 05-04-2022 Hematocrit (Bld) [Volume fraction] 41.8 % 40-54 [facility] Laboratory - Chemistry and C hemistry - challengeOrdered By: Dr. Dye on 05-04-2022 ALP [Catalytic activity/Vol] 64 U/L 45-117 [facility] ALT [Catalytic activity/Vol] 19 U/L 16-61 [facility] CO2 [Moles/Vol] 29.0 mmol/L 21.0-32.0 [facility] Globulin (S) [Mass/Vol] 3.3 g/dL 2.2-4.2 [facility] Urea nitrogen/Creatinine [Mass ratio] 23.9 mg/mg 10-20 [facility] Laboratory - Hematology and Cell countsOrdered By: Dr. Dye on 05-04-2022 Erythrocyte distribution width (RBC) [Entitic vol] 45.2 fL 35.1-43.9 [facility] Erythrocyte distribution width (RBC) [Ratio] 13.1 % 11.6-14.6 [facility] Immature granulocytes/100 WBC (Bld) 0.200 % 0.0-0.9 [facility] Comment on above: IG% - Immature Granu locytes (promyelocytes, myelocytes and metamyelocytes) > 1% indicates that a LEFT SHIFT is Present. MCH (RBC) [Entitic mass] 30.8 pg 27.0-32.0 [facility] Nucleated RBC/100 WBC (Bld) [Ratio] 0 % 0-5 [facility] MCHC Auto (RBC) [Mass/Vol]Or dered By: Dr. Dye on 05-04-2022 MCHC (RBC) [Mass/Vol] 32.5 g/dL 32-36 [facility] No Panel InformationOrdered By: Dr. Dye on 05-04-2022 Estimated GFR (MDRD) Amer 105 mL/min >60 [facility] Comment on above: GFR Calc Estimated GFR (MDRD) Non-Af Amer 87 mL/min >60 [facility] Comment on above: Non- GFR Calc Platelets bldOrdered By: Dr. Dye on 05-04-2022 Platelets (Bld) [#/Vol] 182 10*3/uL 150-450 [facility] Serum or plasma albumin eileen urement (mass/volume)Ordered By: Dr. Dye on 05-04-2022 Albumin [Mass/Vol] 3.6 g/dL 3.2-5.0 [facility] Serum or plasma albumin/glob ulin mass ratioOrdered By: Dr. Dye on 05-04-2022 Albumin/Globulin [Mass ratio] 1.1 {ratio} 0.9-2.4 [facility] Serum or plasma calcium eileen urement (mass/volume)Ordered By: Dr. Dye on 05-04-2022 Calcium [Mass/Vol] 8.9 mg/dL 8.5-10.1 [facility] Serum or plasma cholesterol in HDL measurement (mass/volume)Ordered By: Dr. Dye on 05-04-2022 Cholesterol in HDL [Mass/Vol] 56 mg/dL >40 [facility] Comment on above: The drugs N-Acetylcy steine and Metamizole may falsely depress this assay. Reference Range HDL <40 mg/dL Low HDL Cholesterol HDL >or= 60 mg/dL High HDL Cholesterol Serum or plasma cholesterol in VLDL measurement (mass/volume)Ordered By: Dr. Dye on 05-04-2022 Cholesterol in VLDL [Mass/Vol] 22 mg/dL 5-40 [facility] Serum or plasma creatinine m easurement (mass/volume)Ordered By: Dr. Dye on 05-04-2022 Creatinine [Mass/Vol] 0.92 mg/dL 0.70-1.30 [facility] Comment on above: The validity of the calculated GFR & GFRAA in patients over 70 years has not been determined. Clinical correlation is essential. Serum or plasma low density lipoprotein (LDL) cholesterol measurement (mass/volume)Ordered By: Dr. Dye on 05-04-2022 Cholesterol in LDL [Mass/Vol] 139 mg/dL 0-130 [facility] Serum or plasma urea nitroge n measurement (mass/volume)Ordered By: Dr. Dye on 05-04-2022 Urea nitrogen [Mass/Vol] 22 mg/dL 7-18 [facility] Thin prep Papanicolaou smear with manual screeningOrdered By: Dr. Dye on 05-04-2022 Thin prep Papanicolaou smear with manual screening 17 U/L 15-37 [facility] Thin prep Papanicolaou smear with manual screening 4 5-15 [facility] ED Clinical Summaryon 2020 ED Clinical Summary [address] [id number] ED Clinical Summary Person Information Name: Lashay Bennett/[place] Age: 65 Years : 1955 Sex: Male PCP: Arelis TORRES, Floridalma Alanis Marital Status: Phone: Race: White Ethnicity: Not or Language: Slovenian Visit Reason: Finger injury - Minor; Laceration Acuity: 3 Enc Type: Emergency Med Service: Emergency Medicine Arrival: 01/06/2021 20:31:26 Discharge: 01/06/2021 21:48:00 LOS: 000 01:17 Checkin: 01/06/2021 20:31:26 Checkout: 01/06/2021 21:48:00 Dispo Type: Home or Self Care Address: [address] [place] [address] [facility] [address] Provider Notes: History of Present Illness ? [...] every day. Care Team Members: Attending Physician: Neisha Weiner MD Consulting Physician: Referring Physician: Provider Role Assigned Unassigned Neisha Weiner MD ED Provider 01/06/2021 20:55:12 Follow up: With: Address: When: Floridalma Infante [address] [place] [address], [address] [phone] Business (1) , only if needed Patient Education Information: Laceration, Small or Superficial: Not Stitched [facility] Poison Help line: . [facility] Hotline: [place] Tobacco Quit Line: [place] [employer] [place], [place]) [address]: [phone] [place], [place]) [address]: [phone] [facility] [address] [place], [place]: [phone] Normal [facility] ED Note-Nursingon 01-06-2021 ED Note-Nursing Surgicel placed on finger laceration of left middle finger and tube gauze dressing applied Electronically signed by Nita Still 01/06/21 21:41 EDT Normal [facility] ED Note-Physicianon 01-07-20 21 ED Note-Physician Chief [...] 01/06/21 21:14:00 EDT, STAT, Dispense From Location: [facility] [address] - ED Professional Level 2 [address] - ED Professional Level 3 Communication Order [...] MD 01/06/21 21:23 EDT Normal [facility] .eGFRon 04-03-2020 eGFR AA >60 Normal >=60 [facility] Comment on above: Order Comment: Order added by Discern rule Result Comment: Resu lt = 0-14.9 mL/min/1.73 m2 Kidney failure or Dialysis Result = 15-29 mL/min/1.73 m2 Severe decrease in GFR Result = 30-59 mL/min/1.73 m2 Moderate decrease in GFR Result >= 60 mL/min/1.73 m2 Normal or increased GFR Performed By: #### E GFR #### [address] [address] eGFR Non-AA >60 Normal >=60 [facility] Comment on above: Order Comment: Order added [...] dosing. Performed By: #### E GFR #### [place] [address] Dena 04-03-2020 ALT [Catalytic activity/Vol] 20 U/L Normal 7-52 [facility] Comment on above: Performed By: #### S GPT #### [place] [address] Andrew 04-03-2020 AST [Catalytic activity/Vol] 26 U/L Normal 13-39 [facility] Comment on above: Performed By: #### S GOT #### [address] [address] Basic Metabolic Profileon Anion gap [Moles/Vol] 10 mmol/L Normal 7-17 [facility] Comment on above: Performed By: #### C [id number] #### [place] [address] Calcium [Mass/Vol] 9.3 mg/dL Normal 8.6-10.3 [facility] Comment on above: Performed By: #### C [id number] #### [place] [address] Chloride 106 IU/L Normal 98-107 [facility] Comment on above: Performed By: #### C [id number] #### [place] [address] CO2 [Moles/Vol] 29 mmol/L Normal 21-31 [facility] Comment on above: Performed By: #### C [id number] #### [address] [address] Creatinine [Mass/Vol] 0.8 mg/dL Normal 0.7-1.3 [facility] Comment on above: Performed By: #### C [id number] #### [address] [address] Glucose [Mass/Vol] 93 mg/dL Normal 70-99 [facility] Comment on above: Performed By: #### C [id number] #### [address] [address] Potassium [Moles/Vol] 4.2 mmol/L Normal 3.4-4.8 [facility] Comment on above: Performed By: #### C [id number] #### [address] [address] Sodium [Moles/Vol] 141 mmol/L Normal 136-145 [facility] Comment on above: Performed By: #### C [id number] #### [address] [address] Urea nitrogen [Mass/Vol] 22 mg/dL Normal 7-25 [facility] Comment on above: Performed By: #### C [id number] #### [address] [address] Urea nitrogen/Creatinine [Mass ratio] 27.5 mg/mg High 10.0-20.0 [facility] Comment on above: Performed By: #### C [id number] #### [address] [address] Lipid Panelon 04-03-2020 Cholesterol in LDL [Mass/Vol] 115 mg/dL High 0-99 [facility] Comment on above: Result Comment: The equation being used in this calculation is LDL = (Chol - HDL) - (Trig / 5) The optimal value of LDL for individual patients may vary. The patient's history of Artherosclerosis and other cardiac risk factors should be considered. Performed By: #### L SOLIMAN #### [address] [address] Cardiac Risk 3 Normal [facility] Comment on above: Result Comment: Men Women 1/2 Average 3.43 3.27 Average 4.97 4.44 2x Average 9.55 7.05 3x Average 23.99 11.04 Performed By: #### L SOLIMAN #### [address] [address] Cholesterol [Mass/Vol] 194 mg/dL Normal 25-200 [facility] Comment on above: Result Comment: 0 - 17 years of age: Desirable 0-170 Borderline High 170-199 High >=200 18 years and older: Acceptable <200 Borderline High 200-239 High >=240 Performed By: #### L SOLIMAN #### [address] [address] Cholesterol in HDL [Mass/Vol] 62.2 mg/dL Normal >=40.0 [facility] Comment on above: Performed By: #### L SOLIMAN #### [address] [address] Cholesterol in VLDL [Mass/Vol] 16 mg/dL Normal 8-39 [facility] Comment on above: Performed By: #### L SOLIMAN #### [address] [address] Triglyceride [Mass/Vol] 82 mg/dL Normal 0-149 [facility] Comment on above: Result Comment: 0 - 17 years of age: Trig 90 - 129 Borderline High Trig => 130 High 18 years and older: Trig 150 - 199 Borderline High Trig 200 - 499 High Trig =>500 Very High Performed By: #### L SOLIMAN #### [address] [address] PSA Screenon 04-03-2020 Total PSA 0.86 ng/mL Normal 0.00-4.00 [facility] Comment on above: Performed By: #### P SAS #### [facility] [address] [place] [address] URINE CULTUREon 09-05-2017 Urine culture, bacteria MICROBIOLOGY REP ORT [facility], [address] [place] [address], [place], [place], [address]VHBOCYF: LASHAY BENNETT : OP - - : 1955 AGE: 62 SEX: MADM: 09/05/17 Att. Physician: Gia NELSON Id: [id number] Req. Physician: Joselito NELSONce: urine, clean catchSite:Collected: 09/05/17 11:00Current Antibiotics: not statedAntibiotics comment: C O M M E N T S -Specify (ex-cath, midstream, cysto, etc)?->midstream STATUS OF ORDERED AND REPORTED TESTSURINE CULTURE FINAL 09/07/17URINE CULTURE FINAL 09/07/17 07: No growth-[id number]/ 14/18 No growth Normal [facility] US RENAL COMPLETEon 09-03-19 US RENAL COMPLETE [...] by:BARBER Yiigned by:Antonio Sandoval MD09/02/17inal result Normal [facility] OFFICE URINALYSIS W/O MICROo n 08-26-2017 Bilirubin (total) Negative Normal [facility] BLOOD Negative Normal NEGATIVE [facility] Glucose mass conc Negative Normal NEGATIVE [facility] pH of blood 5.50 [pH] Normal 5.0 - 9.[address] [facility] Protein Negative Normal NEGATIVE [facility] Urine, character Clear Normal CLR-SL.JERRY [facility] Urine, color Yellow Normal YELLOW-STR [facility] Urine, ketones presence Negative Normal NEGATIVE [facility] Urine, nitrite presence Negative Normal NEGATIVE [facility] Urine, specific gravity 1.025 Normal 1.002-1.03 [facility] Urine, urobilinogen 0.20 {Jimbo'U}/dL Normal 0.0 - [address] [facility] WBC (Leukocytes) Negative Normal NEGATIVE [facility] URINE CULTUREon 08-18-2017 Urine culture, bacteria SPECIMEN NUMBER: [id number] [facility] Comment on above: [...] established by the Clinical and Laboratory Standards [place]. EFFECTIVE 08/08/2017 CLINICAL CHEMISTRY PLATFORM CHANGES IN MAIN LABORATORY ARE ASSOCIATED WITH REFERENCE RANGE CHANGES FOR A NUMBER OF ANALYTES. PLEASE REVIEW REFERENCE INTERVALS CAREFULLY *[facility] [address] [place], [place] [address]Laboratory Director: Jhoan Hughes M.D.IA No. [id number] CAP Accreditation No. [id number] URINE CULTUREon 08-01-2017 Urine culture, bacteria SPECIMEN NUMBER: [id number] [facility] Comment on above: [...] established by the Clinical and Laboratory Standards [place].[facility] [address] [place], [place] [address]Laboratory Director: Jhoan Hughes M.D.CLIA No. [id number] CAP Accreditation No. [id number] Vital Signs Date Time Vital Sign Value Performing Clinician Faci lity 11-09-2024 08:53-0400 Body height 180.[address] Zulma Dye MD Work Phone: [facility] 11-09-2024 08:53-0400 Body mass index (BMI) [Ratio] 22.6 kg/m2 Dr. Zulma Dye MD Work Phone: [facility] 11-09-2024 08:53-0400 Body weight 73.[address] Zulma Dye MD Work Phone: [facility] 11-09-2024 08:53-0400 Diastolic blood pressure 68 mm[Hg] Dr. Zulma Dye MD Work Phone: [facility] 11-09-2024 08:53-0400 Heart rate 54 /min Dr. Zulma Dye MD Work Phone: [facility] 11-09-2024 08:53-0400 Respiratory rate 16 /min Dr. Zulma Dye MD Work Phone: [facility] 11-09-2024 08:53-0400 Systolic blood pressure 114 mm[Hg] Dr. Zulma Dye MD Work Phone: [facility] Encounters Encounter Date Encounter Type Care Provider Facility Start: 12-24-2024 ambulatory Zulma Dye Facility: [facility] Start: 12-21-2024 Non-patient / Non-visit Dr. Gary TORRES [facility] Start: 12-21-2024 End: 12-21-[address] Zulma Dye MD Work Phone: -[facility] Start: 12-21-2024 End: 12-21-[address] Joe Avila MD -[facility] Work Phone: Start: 12-21-2024 End: 12-21-2024 ambulatory [facility] Facility:[facility] Start: 11-09-2024 End: 11-09-[address] Joe Avila MD -[facility] Work Phone: Start: 11-09-2024 End: 11-09-[address] Zulma Dye MD Work Phone: [facility] Work Phone: Start: 08-17-2024 End: 08-17-[address] Zulma Dye MD Work Phone: [facility] Work Phone: Start: 08-17-2024 End: 08-17-[address] Zulma Dye MD -Laboratory, [facility] Start: 08-17-2024 End: 08-17-2024 ambulatory [facility] Facility:[facility] Start: 07-16-2024 Encounter for genera l adult medical examination without abnormal findings [facility] Start: 06-12-2024 End: 06-12-[address] Zulma Dye MD -Laboratory Work Phone: Start: 06-12-2024 End: 06-12-2024 ambulatory [facility] Facility:[facility] Start: 06-01-2023 End: 06-01-2023 ambulatory [facility] Work Phone: Start: 06-01-2023 End: 06-01-2023 Patient encounter procedure [facility] Work Phone: Start: 11-26-2022 End: 11-26-2022 ambulatory [facility] Work Phone: Start: 11-26-2022 End: 11-26-2022 Patient encounter procedure [facility], Adriana Carrillo [facility] Start: 07-09-2022 End: 07-09-2022 ambulatory [facility] Work Phone: Start: 07-09-2022 End: 07-09-2022 Patient encounter procedure [facility], Specimen Start: 05-04-2022 End: 05-04-2022 ambulatory [facility] Work Phone: Start: 05-04-2022 End: 05-04-2022 Patient encounter procedure [facility] Start: 11-03-2021 End: 11-03-2021 Patient encounter procedure [facility] Start: 01-06-2021 End: 01-06-2021 Emergency department patient visit MD FLORIDALMA INFANTE Facility:[facility] Start: 04-03-2020 End: 04-04-2020 ambulatory MD FLORIDALMA INFANTE Facility:[facility] Start: 09-05-2017 End: 09-06-2017 Ambulatory MAIRA NELSON [facility] Start: 09-01-2017 End: 09-02-2017 Ambulatory MAIRA [facility] Start: 08-26-2017 End: 08-26-2017 Unknown [facility] Procedures Date Procedure Procedure Detail Performing Clinician Start: 11-09-2024 Evaluation of diagno stic study results Dr. Zulma Dye MD Work Phone: Start: 08-17-[address] Measurement [address] renal function [address] [...] study results 12 Lead EKG performed by MARGUERITE [facility] Payers Date Payer Category Payer Medicare [id number] 2024 Self-pay [id number] 2024 Unknown [id number] 2020 Medicare 2020 Unknown 1955 Unknown [id number] 1955 Unknown [id number] 2.16.8 [id number] Unknown [id number] 2.16.8 [id number] Unknown [id number] 2.16.8 [id number] Unknown [id number] 2.16.8 [id number] Unknown [id number] 2.16.8 [id number] Unknown [id number] 2.16.8 [id number] Unknown [id number] 2.16.8 [id number] Social History Date Type Detail Facility Start: 06-12-2021 End: 06-12-2021 Tobacco smoking status NHIS Unknown if ever smoked [facility] Start: 1955 Sex Assigned At Male [facility] Start: 06-12-2021 End: 06-12-2021 Tobacco smoking status NHIS Never smoked tobacco (finding) [facility] Start: 08-30-2024 Sex Male (finding) [facility] Evaluation note 11-09-2024 Note Date & Type Note Facility 11-09-2024 Evaluation note Diagnosis Onset Date Resolution PVCs (premature ventricular contractions) acute November 09, 2024 8 :50am [facility] Work Phone: Evaluation note Note Date & Type Note Facility Evaluation note No assessment information availa ble [facility] Work Phone: Reason for referral (narrative) Note Date & Type Note Facility Reason for referral (narrative) No reason for referral information available [facility] Work Phone: Summary Purpose Family History No Family History Records Found Relationship Condition Age at Onset Recorded Date/T maria luisa father Hypertension Unknown mother Malignant neoplasm Unknown Advance Directives No Advanced Directives Records Found Advance Directive Response Recorded Date/ Time Living Will Yes June 12 12:10pm Power of Tubular Stock Glass Bulb Machine Former Yes June 12, 2021 12:10pm Advance Directive Response Recorded Date/ Time Living Will Yes June 12 11:10am Power of Tubular Stock Glass Bulb Machine Former Yes June 12, 2021 11:10am Chief Complaint and Reason for Visit Chief Complaint LEFT BREAST PAIN Chief Complaint Admit Date PVC (MIEDEL) November 09, 2024 8:50a m Chief Complaint Admit Date PVC (MIEDEL) November 09, 2024 8:50a m Ventricular premature depolarization Gons[place] e 2024 8:43am Reason for Visit Admit Date PVCs (premature ventricular contractions ) November 09, 2024 8:50am Additional Source Comments (unrecognized sect ion and content) No Status Records FoundNo Status Records FoundNo Status Records FoundNo Status Records Found INFORMATION SOURCE (unrecogn ized section and content) DATE CREATED AUTHOR 12/16/2017 [facility] DATE CREATED AUTHOR AUTHOR'S ORGANIZ ATION 12/16/2017 [facility] DATE CREATED AUTHOR AUTHOR'S ORGANIZ ATION 01/10/2021 [facility] DATE CREATED AUTHOR AUTHOR'S ORGANIZ ATION 12/27/2024 [facility] Goals (unrecognized section and content) Goals [...] Dates Dr. Zulma Dye MD Primary Care Provider, Attendin g [...] November 09, 2024 End: November 09, 2024 Team Status: Active Member Role/Relationship Status Dates Dr. Zulma Dye MD Primary Care Provider Active Team Status: Inactive Member Role/Relationship Status Dates Dr. Zulma Dye MD Primary Care Provider Active Start: November 09, 2024 End: November 09, 2024 Dr. Zulma Dye MD Referring Provider Active Start: November 09, 2024 End: November 09, 2024 Dr. Joe Avila MD Attending Provider Active S tart: November 09, 2024 End: November 09, 2024 Team Status: Inactive Member Role/Relationship Status Dates Dr. Zulma Dye MD Primary Care Provider Active Start: December 21, 2024 End: December 21, 2024 Dr. Joe Avila MD Attending Provider Active S tart: December 21, 2024 End: December 21, 2024 Dr. Joe Avila MD Referring Provider Active S tart: December 21, 2024 End: December 21, 2024 Team Status: Active Member Role/Relationship Status Dates Dr. Zulma Dye MD Primary Care Provider Active Start: December 21, 2024 Dr. Joe Avila MD Attending Provider Active S tart: December 21, 2024 FOR RECORDS PERTAINING TO PATIENTS WHO [...] BE BASED ON THE PRIMARY CLINICAL RECORDS. [employer] provides no warranty or guarantee of the accuracy or completeness of information in this document.
[2025-03-03 02:12] LABS: Hematocrit 39.1 % (40-54); Hemoglobin 12.9 g/dL (13.0-16.5); Immature Granulocytes Count 0.020 X10^3/uL (0.0-0.0); Mean Corp Hgb Conc 33.0 g/dL (32-36); Mean Corpuscular Volume 93.8 fL (80-94); Mean Platelet Vol. 8.7 fl (6.2-12.0); NRBC Flagged by Analyzer 0 % (0-5); POSITIVE DIFFERENTIAL YES; Platelet Count 138 K/mm3 (150-450); RBC Distribution Width CV 13.2 % (11.6-14.6); RBC Distribution Width SD 45.3 fl (35.1-43.9); Red Blood Count 4.17 M/mm3 (4.6-6.2); White Blood Count 6.6 K/mm3 (4.4-11.0)
--- NOTE | 2025-03-03 02:15 | RAD_ITS ---
PROCEDURE: CHEST PA AND LATERAL 03/02/2025 REASON FOR EXAM: FATIGUE TECHNIQUE: Procedure Code: RADCXR Modality: DX Procedure: CHEST PA AND LATERAL COMPARISON: None available. FINDINGS: Hardware: None. Heart: The heart size is normal. Mediastinum: The mediastinal contour is unremarkable. Lungs: The lungs are clear. Bones: The bones are unremarkable. RAD/Chest PA and Lateral IMPRESSION: NO ACUTE FINDINGS. Reading Location: [facility]
[2025-03-03 02:40] LABS: Anion Gap 12 (5-15); BUN 18 mg/dL (4-19); BUN/Creat Ratio 16.9 RATIO (10-20); Calcium,Total 9.1 mg/dL (7.6-11.0); Carbon Dioxide 23.6 mmol/L (21.0-32.0); Chloride 103 mmol/L (98-108); Estimated Creatinine Clearance 68.42 ml/min (50-250); Glucose 114 mg/dL (70-99); Magnesium 2.0 mg/dL (1.5-2.2); Potassium 4.2 mmol/L (3.3-5.1)
[2025-03-03 02:46] VITALS: BP 156/65; PULSE 80; RESP 16; TEMP 37.3; O2SAT 97
[2025-03-03 02:54] LABS: Color, Urine Straw (Yellow); Glucose, Dipstick Normal (Normal); Ketone-Dipstick Negative (Negative); Leukocyte Esterase-Dipstick Negative /ul (Negative); Nitrite-Dipstick Negative (Negative); Occult Blood-Urine 10 /ul (Negative); Protein-Dipstick 15 mg/dl (Negative); Specific Gravity, Urine 1.015 (1.002-1.030); Urine Bilirubin Dipstick Negative (Negative)
[2025-03-03 03:40] LABS: Mucous, Urine 1+ /hpf (<or=2+); Red Blood Cells-Urine 5-10 SEEN /hpf (0-5); Squamous Epithelial Cells - UA 0-5 SEEN /hpf (0-5)
[2025-03-03 04:00] VITALS: BP 123/62; PULSE 87; RESP 16; O2SAT 93
[2025-03-03 04:09] LABS: CPK Total, Creatine Kinase 279 U/L (24-195)
--- NOTE | 2025-03-03 04:20 | EX.ED.DYSGE1 ---
HPI History of Present Illness Chief Complaint: General Illness Informant: patient and spouse/S.O. Narrative Narrative: Patient is a 69-year-old male with past medical history of BPH and hyperlipidemia. He states that he went for a bike ride today which is nothing out of the ordinary. Then this evening he awoke from sleep with persistent shaking. He states that he does not feel feverish or chills associated with this. He reports that there is no other symptoms such as congestion cough nausea vomiting diarrhea or dysuria. He states there has been no change to his medication. He denies any known sick contacts. However as he cannot stop tremoring he presents to the ER for evaluation [facility] Medical History Cancer Prostate disease History of edema History of irregular heartbeat BPH (benign prostatic hyperplasia) High cholesterol Home Medications ?Medication ?Instructions ?Recorded ?Last Taken ?Type aspirin 81 mg tablet,delayed 81 mg PO DAILY 06/01/21 Unknown History release cholecalciferol (vitamin D3) 25 25 mcg PO DAILY 06/01/21 Unknown History mcg (1,000 unit) capsule tamsulosin 0.4 mg capsule 0.4 cap PO QHS 06/01/21 Unknown History niacin 500 mg tablet 500 mg PO QDAY 10/15/24 Unknown History metoprolol succinate 25 mg 25 mg PO QDAY #90 tabs 11/12/24 Unknown Rx tablet,extended release 24 hr ferrous sulfate 1 tab PO QODAY 03/03/25 Unknown History pravastatin 10 mg tablet 5 mg PO QODAY 03/03/25 Unknown History Allergy/AdvReac Type Severity Reaction Status Date / Time amoxicillin Allergy Mild Rash Verified 03/03/25 01:47 Family History Father Hypertension Mother Cancer uterine cancer Surgical History S/p nephrectomy S/P hemorrhoidectomy Social History Smoking Status: Never smoker alcohol intake: never ROS ROS ED Constitutional Constitutional ED: Denies chills or fever(s) Eyes Eyes: Denies change in vision ENT ENT ED: Denies rhinorrhea or sore throat Cardiovascular Cardiovascular: Denies chest pain Respiratory/Chest Respiratory/Chest: Denies cough or dyspnea Gastrointestinal Gastrointestinal: Denies abdominal pain, diarrhea, nausea or vomiting Genitourinary Genitourinary ED: Denies dysuria Musculoskeletal Musculoskeletal: Reports myalgias Integumentary Denies rash Neurologic Neurologic: Reports other Details: Positive tremors ; Denies headache(s) Hematologic/Lymphatic Hematologic/Lymphatic: Denies easy bleeding or easy bruising EXAM Physical Exam Const Vital Signs: 03/03/25 01:47 03/03/25 01:47 03/03/25 02:46 Temperature 99 F 99.2 F H Temperature Source Oral Oral Pulse Rate 86 80 Respiratory Rate 18 16 Respiratory Effort Normal Non-Labored Respiratory Pattern Normal Blood Pressure 156/76 H 156/65 H Blood Pressure Mean 102 95 Pulse Ox 99 97 Oxygen Delivery Method Room Air Room Air 03/03/25 04:00 03/03/25 04:22 Temperature 100 F H Temperature Source Pulse Rate 87 96 Respiratory Rate 16 16 Respiratory Effort Respiratory Pattern Blood Pressure 123/62 H 123/62 H Blood Pressure Mean 82 82 Pulse Ox 93 99 Oxygen Delivery Method Room Air Positive well nourished and well developed General Appearance ED: well developed; Negative for pallor HEENT HEENT Narrative: Normocephalic atraumatic No tongue or lip swelling no oral lesions no airway edema or compromise No tongue or cheek biting to suggest seizure activity No secondary findings in the posterior pharynx to suggest infection Eyes PERRL and EOMs intact bilaterally General Eye ED: Negative for scleral icterus Neck supple Neck Narrative: No nuchal rigidity or meningeal signs Resp normal respiratory effort and clear to auscultation bilaterally Resp Narrative: No nasal flaring retractions tachypnea or accessory muscle use Breath sounds are clear throughout Cardio regular rate and regular rhythm Rate: other Other Details: Heart is regular rate and rhythm Radial and carotid pulses are equal and symmetric GI normal to inspection, nondistended, normoactive bowel sounds, non-tender, non-distended and no masses GI Narrative: No voluntary guarding or rigidity or pulsatile mass Auscultation: normoactive bowel sounds Palpation: soft Back/Spine no CVA tenderness Extremity normal to inspection Extremity Narrative: No asymmetric edema no pitting edema negative Homans' sign bilaterally Neuro oriented x3, CN's II-XII intact bilaterally and no sensory deficits noted Neuro Narrative: Patient does have diffuse shaking most consistent with shaking chills; no seizure activity noted Sensorium / Orientation: alert Motor Exam: strength 5/5 throughout Psych mental status grossly normal Skin no rashes or lesions noted and no wounds General Skin Exam: Negative for jaundice or pallor MDM MDM MDM Narrative Medical decision making narrative: Patient arrived to the ER afebrile. He reported spontaneous onset of whole body tremors. His history and exam is consistent with shaking chills most likely from developing infection. In order to rule out pneumonia versus UTI versus viral infection such as COVID influenza or RSV or signs of early sepsis I did elect to perform basic laboratory studies with chest x-ray viral swab and urine sample. As he did a 25 mile bike ride as well there was concern for rhabdomyolysis or potentially electrolyte abnormality. Blood work showed no leukocytosis or left shift. He had no signs of acute kidney injury or electrolyte abnormality or thyroid dysfunction. Chest x-ray revealed no acute lung pathology. Viral swab was negative for COVID influenza and RSV. Urine sample revealed no sign of UTI. His CPK was slightly elevated at 280 but this is not clinically significant as he should be elevated at minimum 3 times upper limit of normal to correlate with rhabdomyolysis. After receiving Tylenol and Zofran and Valium he had resolution of his tremors. I do feel that his tremor/shaking chills are due to the start of some type of viral infection. However as there is no source of bacterial infection such as pneumonia or UTI and the tremors/shaking chills are not seizure related and he does not have vital sign or laboratory changes to suggest sepsis I do not feel there is need for further intervention. Upon reevaluation the patient states that he is feeling much better after the provided medication and his tremors/shaking chills have stopped. 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 History & Record Review Discussion w/independent historian: Patient and Significant other Lab Data Attestation: I reviewed the patient's lab results. Labs: Laboratory Results - last 24 hr 03/03/25 03/03/25 02:04 02:42 WBC 6.6 RBC 4.17 L Hgb 12.9 L Hct 39.1 L MCV 93.8 MCH 30.9 MCHC 33.0 RDW Std Deviation 45.3 H RDW Coeff of Eran 13.2 Plt Count 138 L MPV 8.7 Immature Gran % (Auto) 0.300 Neut % (Auto) 89.3 H Lymph % (Auto) 7.0 L Stephens % (Auto) 2.9 Eos % (Auto) 0.3 Baso % (Auto) 0.2 Absolute Neuts (auto) 5.9 Absolute Lymphs (auto) 0.46 L Nucleated RBC % 0 Sodium 139 Potassium 4.2 Chloride 103 Carbon Dioxide 23.6 Anion Gap 12 BUN 18 Creatinine 1.07 Estim Creat Clear Calc 68.42 Est GFR (MDRD) Non-Af 75 BUN/Creatinine Ratio 16.9 Glucose 114 H Calcium 9.1 Magnesium 2.0 Total Creatine Kinase 279 H TSH 2.590 Urine Color Straw Urine Clarity Clear Urine pH 6.0 Ur Specific [place] 1.015 Urine Protein 15 H Urine Glucose (UA) Normal Urine Ketones Negative Urine Occult Blood 10 H Urine Nitrite Negative Urine Bilirubin Negative Urine Urobilinogen Normal Ur Leukocyte Esterase Negative Urine RBC 5-10 SEEN Urine WBC 0-5 SEEN Ur Squamous Epith Cells 0-5 SEEN Urine Bacteria RARE Urine Mucus 1+ Radiography Diagnostic Testing: Clinical Impression(s) from Imaging Studies Chest X-Ray 03/03/25 02:15 IMPRESSION: NO ACUTE FINDINGS. Reading Location: [facility] Chest x-ray as interpreted by the emergency medicine physician reveals no acute infiltrate pneumothorax or pleural effusion Discharge Plan Triage Chief Complaint: General Illness ED Provider: Mitul Seals Dx/Rx/DC Orders Clinical Impression: Viral syndrome, BPH (benign prostatic hyperplasia), Hyperlipidemia, Shaking chills Instructions: ED Viral Syndrome (Adult) Prescriptions: No Action tamsulosin 0.4 mg capsule 0.4 cap PO QHS aspirin 81 mg tablet,delayed release (DR/EC) 81 mg PO DAILY cholecalciferol (vitamin D3) 25 mcg (1,000 unit) capsule 25 mcg PO DAILY niacin 500 mg tablet 500 mg PO QDAY pravastatin 10 mg tablet 5 mg PO QODAY ferrous sulfate 1 tab PO QODAY metoprolol succinate 25 mg tablet extended release 24 hr 25 mg PO QDAY Qty: 90 3RF Primary Care Provider: Zulma Dye Referrals: Zulma Dye MD [Primary Care Provider] - Activity Restrictions/Additional Instructions: Your workup today did not reveal any obvious signs of acute infection. This is most likely related to developing virus. Please take Tylenol and/or Motrin for fever control which should help with symptoms. If symptoms worsen or you have any further concerns please return to the ER for repeat evaluation Print Language: Cuban Disposition Disposition: Home, Self Care Discharge Date/Time: 03/03/25 04:31
[2025-03-03 04:22] VITALS: BP 123/62; PULSE 96; RESP 16; TEMP 37.7; O2SAT 99
== END 2025-03-03 04:31 | disposition home or self-care (01) ==
PROVIDERS: Emergency Provider Emergency Medicine; PCP Family Medicine; Visit Provider Emergency Medicine
DX: R25.1 Tremor, unspecified (principal); B97.89 Other viral agents as the cause of diseases classified elsewhere; N40.0 Benign prostatic hyperplasia without lower urinary tract symptoms; E78.00 Pure hypercholesterolemia, unspecified; Z79.899 Other long term (current) drug therapy; R68.83 Chills (without fever)
CPT/HCPCS: 71046; 80048; 81001; 82550; 83735; 84443; 85025; 87631; 96374; 99284; A4216; J2405

== ENCOUNTER → 2025-06-06 | Outpatient (CLI) | payer MEDICARE, BC, SELFPAY ==
[2025-06-06 12:51] LABS: Cholesterol 240 mg/dL (<=200); Low Density Lipoprotein Calc. 164 mg/dL; Triglycerides 105 mg/dL; Very Low Density Lipoprotein 21 mg/dL (5-40); cholesterol:hdl ratio screen 4.18
== END | disposition home or self-care (01) ==
LOC: BFHLAB 08:54
PROVIDERS: PCP Family Medicine; Visit Provider Family Medicine
DX: E78.5 Hyperlipidemia, unspecified (principal)
CPT/HCPCS: 36415; 80061

== ENCOUNTER → 2025-06-24 | Outpatient (CLI) | payer MEDICARE, BC, SELFPAY ==
--- NOTE | 2025-06-24 09:17 | US_ITS ---
PROCEDURE: BREAST LIMITED UNILATERAL 06/24/2025 REASON FOR EXAM: M, Age 70 y/o , TENDER LUMP UNDER NIPPLE, RIGHT BREAST. Right breast palpable abnormality for 4 months. Inconclusive mammogram shows masslike densities in both breasts. Evaluate. COMPARISON: Mammogram dated 06/24/2025 and 11/03/2021. TECHNIQUE: Procedure Code: USBRSTLIMIT Modality: US Procedure: BREAST LIMITED UNILATERAL FINDINGS: Ultrasonography of the right breast retroareolar region was performed in the location of the palpable abnormality. There is a solid hypoechoic heterogeneous mass in this location measuring 2.6 x 2.6 x 0.6 cm. This mass does correlate to the palpable abnormality and the mass seen on the mammogram. This mass most likely represents gynecomastia. Short-term six-month follow-up ultrasound is recommended to document stability. Ultrasonography of the left breast retroareolar region was performed for comparison purposes. There is a solid hypoechoic heterogeneous mass in this location measuring 1.9 x 1.7 x 0.7 cm. This mass does correlate to the mass seen on the mammogram and is most compatible with gynecomastia. Short-term six-month follow-up ultrasound is recommended to document stability. US/Breast Limited Unilateral IMPRESSION: There are masses in both breasts. These do correlate to masses seen on the thea mogram. The right breast mass is palpable. These areas appear to represent probable gynecomastia however, a short-term six-month follow-up ultrasound of both breasts is recommended to document stability. BI-RADS 3: PROBABLY BENIGN. RECOMMENDATION: 6 Month Follow-up Reading Location: [id number]
--- NOTE | 2025-06-24 09:17 | BI_ITS ---
EXAM: DIAG MAMM W/CAD, BILAT N/A CLINICAL HISTORY: M, Age 70 y/o , TENDER LUMP UNDER NIPPLE, RIGHT BREAST. Patient states that he believes the palpable mass is caused by his cholesterol medicine. He has therefore stopped his cholesterol medicine. TECHNIQUE: Procedure Code: [id number] Modality: MG Procedure: DIAG MAMM W/CAD, BILAT. COMPARISON: Prior exam(s) dated 11/03/2021 and breast ultrasound dated 11/03/2021. FINDINGS: TISSUE DENSITY: The breasts are almost entirely fatty. Bilateral Breast Mammographic Findings: There are partially obscured isodense masses seen in the retroareolar region of both the right and left breast. These appear to have some adipose tissue within them. They appear to represent possible gynecomastia and/or slightly larger when compared to the prior mammogram study. The right breast mass does correlate to the palpable area that is tender. Further workup with ultrasound will be performed. Please see that report. BI/DIAG MAMM W/CAD, BILAT IMPRESSION: There are partially obscured isodense masses seen in the retroareolar region of both the right and left breast. These appear to have some adipose tissue within them. They appear to represent possible gyneco mastia and/or slightly larger when compared to the prior mammogram study. The right breast mass does correlate to the palpable ar ea that is tender. Further workup with ultrasound will be performed. Please see that report. OVERALL FINAL ASSESSMENT BI-RADS 0: INCOMPLETE - NEED ADDITIONAL IMAGING EVALUATION. RECOMMENDATION: Ultrasound Recommended Additional Recommendation Patient should continue taking his cholesterol medici ne and should follow up with his referring physician before he stops taking any of his medicines. A letter with findings and recommendations will be mailed to the patient. Reading Location: [id number]
== END | disposition home or self-care (01) ==
LOC: OPUS 09:15
PROVIDERS: PCP Family Medicine; Referring Provider Family Medicine; Visit Provider Family Medicine
DX: N62 Hypertrophy of breast (principal)
CPT/HCPCS: 76642; 77062; 77066; G0279